=== PATIENT | female | born 1930 | race Caucasian/White ===

== ENCOUNTER 2016-08-16 05:38 | Observation (INO) | payer MEDICARE, BC ==
--- NOTE | 2016-08-16 05:44 | EDM.PDOC ---
ED HPI GENERAL MEDICAL PROBLEM - General Stated Complaint: CHEST PAIN Time Seen by Provider: 08/16/16 05:44 Source of Information: Reports: Patient - History of Present Illness INITIAL COMMENTS - FREE TEXT/NARRATIVE: HISTORY AND PHYSICAL: History of present illness: [] Patient presents with chest pain radiating to her back pain, she arrives by ambulance, pain is 8/10 nonradiating she states this is similar to a previous AL and it she had had. On EMS arrival they provided 4 baby aspirin and nitroglycerin pain now 0/10 after one dose No fever nausea vomiting chills sweats no shortness of breath or diaphoresis Review of systems: As per history of present illness and below otherwise all systems reviewed and negative. Past medical history: As per history of present illness and as reviewed below otherwise noncontributory. Surgical history: As per history of present illness and as reviewed below otherwise noncontributory. Social history: No reported history of drug or alcohol abuse. Family history: As per history of present illness and as reviewed below otherwise noncontributory. Physical exam: HEENT: Atraumatic, normocephalic, pupils reactive, negative for conjunctival pallor or scleral icterus, mucous membranes moist, throat clear, neck supple, nontender, trachea midline. Lungs: Clear to auscultation, breath sounds equal bilaterally, chest nontender. Heart: S1S2, regular, negative for clicks, rubs, or JVD. Abdomen: Soft, nondistended, nontender. Negative for masses or hepatosplenomegaly. Negative for costovertebral tenderness. Pelvis: Stable nontender. Genitourinary: Deferred. Rectal: Deferred. Extremities: Atraumatic, negative for cords or calf pain. Neurovascular unremarkable. Neuro: Awake, alert, oriented. Cranial nerves II through XII unremarkable. Cerebellum unremarkable. Motor and sensory unremarkable throughout. Exam nonfocal. Diagnostics: [] Lab as below EKG Chest one view Therapeutics: [] Aspirin 324 mg provided via EMS Nitroglycerin 0.4 sublingual provided by EMS Transfuse 2 units PRBCs Patient admitted to Dr. Francisco discussed in detail further orders pending his evaluation and treatment Impression: [] Atypical chest pain Anemia History of previous AL Definitive disposition and diagnosis as appropriate pending reevaluation and review of above. - Related Data Allergies Allergy/AdvReac Type Severity Reaction Status Date / Time No Known Allergies Allergy Verified 09/28/14 03:57 Home Meds: Home Meds . [Unable to Verify Home Med List] 09/28/14 [History] Past Medical History Other OB/BYN History: hysterectomy Social & Family History - Tobacco Use Smoking Status *Q: Current Every Day Smoker Years of Tobacco use: 60 - Recreational Drug Use Recreational Drug Use: No ED ROS GENERAL - Review of Systems Review Of Systems: ROS reveals no pertinent complaints other than HPI. ED EXAM, GENERAL - Physical Exam Exam: See Below Course - Vital Signs Last Recorded V/S: Last Vital Signs Temp 36.2 C 08/16/16 05:44 Pulse 81 08/16/16 05:44 Resp 21 H 08/16/16 05:44 BP 172/72 H 08/16/16 05:44 Pulse Ox 96 08/16/16 05:44 - Orders/Labs/Meds Orders: Active Orders 24 hr Category Date Time Status EKG Documentation Completion [RC] STAT Care 08/16/16 05:43 Active Chest 1V Frontal [CR] Stat Exams 08/16/16 05:43 Taken COMPREHENSIVE METABOLIC PN,CMP [CHEM] Stat Lab 08/16/16 05:53 Received TYPE AND SCREEN [BBK] Stat Lab 08/16/16 06:20 Ordered UA W/MICROSCOPIC [URIN] Stat Lab 08/16/16 05:43 Uncollected Transfuse PRBC [Transfuse Red Blood Cells] [COMM] Stat Oth 08/16/16 06:20 Ordered Labs: Laboratory Tests 08/16/16 08/16/16 08/16/16 Range/Units 05:53 05:53 05:53 WBC 6.83 (4.0-11.0) K/uL RBC 3.31 L (4.30-5.90) M/uL Hgb 7.5 L (12.0-16.0) g/dL Hct 25.8 L (36.0-46.0) % MCV 77.9 L (80.0-98.0) fL MCH 22.7 L (27.0-32.0) pg MCHC 29.1 L (31.0-37.0) g/dL RDW Std Deviation 46.9 (28.0-62.0) fl RDW Coeff of Nick 17 H (11.0-15.0) % Plt Count 241 (150-400) K/uL MPV 9.00 (7.40-12.00) fL Neut % (Auto) 67.5 (48.0-80.0) % Lymph % (Auto) 19.3 (16.0-40.0) % [place] % (Auto) 10.0 (0.0-15.0) % Eos % (Auto) 2.6 (0.0-7.0) % Baso % (Auto) 0.6 (0.0-1.5) % Neut # (Auto) 4.6 (1.4-5.7) K/uL Lymph # (Auto) 1.3 (0.6-2.4) K/uL [place] # (Auto) 0.7 (0.0-0.8) K/uL Eos # (Auto) 0.2 (0.0-0.7) K/uL Baso # (Auto) 0.0 (0.0-0.1) K/uL Nucleated RBC % 0.0 /100WBC Nucleated RBCs # 0 K/uL INR 1.12 H (0.86-1.11) Troponin I < 0.10 (0.0-0.29) NG/ML B-Natriuretic Peptide (<100) PG/ML 08/16/16 Range/Units 05:53 WBC (4.0-11.0) K/uL RBC (4.30-5.90) M/uL Hgb (12.0-16.0) g/dL Hct (36.0-46.0) % MCV (80.0-98.0) fL MCH (27.0-32.0) pg MCHC (31.0-37.0) g/dL RDW Std Deviation (28.0-62.0) fl RDW Coeff of Nick (11.0-15.0) % Plt Count (150-400) K/uL MPV (7.40-12.00) fL Neut % (Auto) (48.0-80.0) % Lymph % (Auto) (16.0-40.0) % [place] % (Auto) (0.0-15.0) % Eos % (Auto) (0.0-7.0) % Baso % (Auto) (0.0-1.5) % Neut # (Auto) (1.4-5.7) K/uL Lymph # (Auto) (0.6-2.4) K/uL [place] # (Auto) (0.0-0.8) K/uL Eos # (Auto) (0.0-0.7) K/uL Baso # (Auto) (0.0-0.1) K/uL Nucleated RBC % /100WBC Nucleated RBCs # K/uL INR (0.86-1.11) Troponin I (0.0-0.29) NG/ML B-Natriuretic Peptide 386 H (<100) PG/ML Departure - Departure Time of Disposition: 06:24 Disposition: Home, Self-Care 01 Condition: good Clinical Impression: Chest pain, Chest pain, atypical, Anemia - Discharge Information - My Orders Last 24 Hours: My Active Orders 08/16/16 05:43 EKG Documentation Completion [RC] STAT Chest 1V Frontal [CR] Stat UA W/MICROSCOPIC [URIN] Stat 08/16/16 05:53 COMPREHENSIVE METABOLIC PN,CMP [CHEM] Stat 08/16/16 06:20 TYPE AND SCREEN [BBK] Stat Transfuse PRBC [Transfuse Red Blood Cells] [COMM] Stat - Assessment/Plan Last 24 Hours: My Active Orders 08/16/16 05:43 EKG Documentation Completion [RC] STAT Chest 1V Frontal [CR] Stat UA W/MICROSCOPIC [URIN] Stat 08/16/16 05:53 COMPREHENSIVE METABOLIC PN,CMP [CHEM] Stat 08/16/16 06:20 TYPE AND SCREEN [BBK] Stat Transfuse PRBC [Transfuse Red Blood Cells] [COMM] Stat
[2016-08-16] MEDS ORDERED: Albuterol/Ipratropium 3.0-0.5 MG/3 ML Neb Soln INH PRN (13:45)
--- NOTE | 2016-08-16 13:58 | PCM.HP ---
H&P History of Present Illness - General Admit Problem/Dx: Admission Diagnosis/Problem Admission Diagnosis/Problem Atypical chest pain - History of Present Illness Initial Comments - Free Text/Narative: 85 yo female with pmh of atrial fibrillation, HTN, COPD and CAD. Patient reports a year ago having an AK with five stents placed. She presents to the ED with complaint of neck pain that radiates to arms bilaterally which was similar pain she had to her prior AK. She received on nitro with resolution of her pain. She had received 325mg of ASA by the EMS. Patient reported hemarroids with intermittent bright red blood per rectum - Related Data Allergies/Adverse Reactions: Allergies Allergy/AdvReac Type Severity Reaction Status Date / Time Sulfa (Sulfonamide Allergy Nausea and Verified 08/16/16 19:54 Antibiotics) Vomiting Home Medications: Home Meds Acetaminophen [Tylenol] 500 mg PO BID 08/16/16 [History] Apixaban [Eliquis] 2.5 mg PO BID 08/16/16 [History] Ascorbic Acid [Vitamin C] 1,000 mg PO DAILY 08/16/16 [History] Cholecalciferol (Vitamin D3) [Vitamin D3] 1,000 unit PO DAILY 08/16/16 [History] Clopidogrel [Plavix] 75 mg PO DAILY 08/16/16 [History] Diltiazem HCl [Dilt-XR] 120 mg PO DAILY 08/16/16 [History] Furosemide 40 mg PO DAILY 08/16/16 [History] Ipratropium/Albuterol Sulfate [Iprat-Albut 0.5-3(2.5) MG/3 ML] 3 ml IH Q6HR [History] Levothyroxine 25 mcg PO ACBREAKFAST 08/16/16 [History] Metoprolol Tartrate 50 mg PO BID 08/16/16 [History] Pantoprazole [ProTONIX] 40 mg PO DAILY 08/16/16 [History] Potassium Chloride 10 meq PO BID 08/16/16 [History] Sertraline [Zoloft] 100 mg PO DAILY 08/16/16 [History] atorvaSTATin [Lipitor] 20 mg PO DAILY 08/16/16 [History] Past Medical History HEENT History: Reports: Hard of Hearing Cardiovascular History: Reports: Hypertension, AK Other Cardiovascular History: Heart attack in 2015 Respiratory History: Reports: COPD Genitourinary History: Reports: Renal Disease [employer] History: Reports: Other OB/BYN History: hysterectomy Musculoskeletal History: Reports: Arthritis, Osteoporosis Endocrine/Metabolic History: Reports: Hypothyroidism, Other (See Below) Other Endocrine/Metabolic History: borderline DM II Hematologic History: Reports: Anemia - Infectious Disease History Infectious Disease History: Reports: C-Difficile, Chicken Pox, Measles, Mumps, Rubella - Past Surgical History Female Surgical History: Reports: Hysterectomy Musculoskeletal Surgical History: Reports: Hip Replacement Social & Family History - Family History Family Medical History: Noncontributory : Reports: Other (See Below) Other Family History: Interstitial cystitis OBGYN: Reports: Other (See Below) Other OBGYN Family History: cysts Musculoskeletal: Reports: Fibromyalgia Neurological: Reports: CVA Psychiatric: Reports: Depression - Tobacco Use Smoking Status *Q: Former Smoker Years of Tobacco use: 60 Used Tobacco, but Quit: Yes Month Tobacco Last Used: 2014 Second Hand Smoke Exposure: No - Caffeine Use Caffeine Use: Reports: Soda - Recreational Drug Use Recreational Drug Use: No H&P Review of Systems - Review of Systems: Review Of Systems: See Below General: Reports: No Symptoms HEENT: Reports: No Symptoms Pulmonary: Reports: No Symptoms Cardiovascular: Reports: No Symptoms Gastrointestinal: Reports: No Symptoms Genitourinary: Reports: No Symptoms Musculoskeletal: Reports: No Symptoms Skin: Reports: No Symptoms Psychiatric: Reports: No Symptoms Neurological: Reports: No Symptoms Hematologic/Lymphatic: Reports: No Symptoms Immunologic: Reports: No Symptoms Exam - Exam Exam: See Below - Vital Signs Vital Signs: Last Vital Signs Temp 36.8 C 08/16/16 12:53 Pulse 82 08/16/16 12:53 Resp 18 08/16/16 12:53 BP 170/78 H 08/16/16 12:53 Pulse Ox 94 L 08/16/16 12:53 Weight: 79.152 kg - Exam General: Alert, Oriented, 4 Neck: No: JVD Lungs: Clear to Auscultation, Normal Respiratory Effort Cardiovascular: Regular Rate, Regular Rhythm. No: Systolic Murmur, Diastolic Murmur Abdomen: Normal Bowel Sounds, Soft Extremities: Normal Inspection Skin: Warm, Dry, Intact - Patient Data Lab Results last 24 hrs: Laboratory Results - last 24 hr 08/16/16 Range/Units 11:09 Troponin I < 0.10 (0.0-0.29) NG/ML Result Diagrams: 08/17/16 05:13 08/17/16 05:13 EKG INTERPRETATION Rhythm: NSR Rate (beats/min): 78 ST-T: depressed (in lateral leads) *Q Meaningful Use (ADM) - VTE *Q VTE Criteria *Q: - Stroke *Q Stroke Criteria *Q: - AMI *Q AMI Criteria *Q: Problem List Initiated/Reviewed/Updated: Yes Orders Last 24hrs: Active Orders 24 hr Category Date Time Status Antiembolic Devices [RC] PER UNIT ROUTINE Care 08/16/16 13:50 Active EKG 12 Lead [EKG Documentation Completion] [RC] STAT Care 08/16/16 13:24 Active EKG Documentation Completion [RC] ROUTINE Care 08/16/16 13:22 Inactive Intake and Output [RC] QSHIFT Care 08/16/16 13:48 Active Oxygen Therapy [RC] PRN Care 08/16/16 13:48 Active Telemetry Monitoring [Cardiac Monitoring] [RC] . Care 08/16/16 06:25 Active DIRECTED Up ad Merly [RC] ASDIRECTED Care 08/16/16 13:48 Active VTE/DVT Education [RC] PER UNIT ROUTINE Care 08/16/16 13:48 Active Vital Signs [RC] Q4H Care 08/16/16 13:48 Active Cardiac [Heart Healthy Diet] [DIET] Diet 08/16/16 Lunch Active Regular Diet [DIET] Diet 08/16/16 Breakfast Active BASIC METABOLIC PANEL,BMP [CHEM] AM Lab 08/17/16 05:11 Ordered CBC WITH AUTO DIFF [HEME] AM Lab 08/17/16 05:11 Ordered TROPONIN I [CHEM] Q6H Lab 08/16/16 16:58 Ordered Albuterol/Ipratropium [DuoNeb 3.0-0.5 MG/3 ML] Med 08/16/16 13:45 Active 3 ml INH Q6HR PRN Apixaban [Eliquis] Med 08/16/16 21:00 Active 2.5 mg PO BID Clopidogrel [Plavix] Med 08/16/16 13:45 Ordered 75 mg PO DAILY Diltiazem HCl [Dilt-XR] Med 08/16/16 13:47 Ordered 120 mg PO DAILY Furosemide [Lasix] Med 08/17/16 09:00 Ordered 40 mg PO DAILY Levothyroxine Med 08/17/16 07:30 Ordered 25 mcg PO ACBREAKFAST Metoprolol Tartrate [Lopressor] Med 08/16/16 21:00 Ordered 50 mg PO BID Pantoprazole [ProTONIX] Med 08/16/16 13:45 Ordered 40 mg PO DAILY Sertraline [Zoloft] Med 08/17/16 09:00 Ordered 100 mg PO DAILY atorvaSTATin [Lipitor] Med 08/16/16 21:00 Ordered 20 mg PO BEDTIME Sequential Compression Device [OM.PC] Per Unit Routine Oth 08/16/16 13:49 Ordered Resuscitation Status Routine Resus Stat 08/16/16 13:48 Ordered Medication Orders Albuterol/Ipratropium (Duoneb 3.0-0.5 Mg/3 Ml) 3 ml INH Q6HR PRN PRN Reason: wheezing Apixaban (Eliquis) 2.5 mg PO BID JACY Atorvastatin Calcium (Lipitor) 20 mg PO BEDTIME JACY Clopidogrel Bisulfate (Plavix) 75 mg PO DAILY JACY Diltiazem HCl (Cardizem Cd) 120 mg PO DAILY JACY Furosemide (Lasix) 40 mg PO DAILY JACY Levothyroxine Sodium (Levothyroxine) 25 mcg PO ACBREAKFAST JACY Metoprolol Tartrate (Lopressor) 50 mg PO BIDMEALS JACY Pantoprazole Sodium (Protonix) 40 mg PO ACBREAKFAST JACY Sertraline HCl (Zoloft) 100 mg PO DAILY JACY Assessment/Plan Comment:: 85 yo female who presents with chest pain. We will place on ACS rule out protocol with serial cardiac enzymes. We will continue home medications of plavix, Eliquis, diltiazem, metoprolol, and atorvastatin. She is transfused pRBC due to anemia which is likely 2/2 to chronic GI bleeding.
[2016-08-16] MEDS: Diltiazem 120 MG Cap.CD PO SCH (14:08)
[2016-08-16] MEDS: Pantoprazole 40 MG Tab.CR PO SCH (14:09)
[2016-08-16] MEDS: Clopidogrel 75 MG Tab PO SCH (14:09)
[2016-08-16] MEDS: Metoprolol Tartrate 50 MG Tab PO SCH (16:17)
[2016-08-16] MEDS ORDERED: Magnesium Sulfate/Water 2 GM in Premix Bag 1 BAG IV ONE (18:15)
[2016-08-16] MEDS: Apixaban 2.5 MG Tab PO SCH (20:39)
[2016-08-16] MEDS ORDERED: atorvaSTATin 20 MG Tab PO SCH (21:00)
[2016-08-17] MEDS: Pantoprazole 40 MG Tab.CR PO SCH (06:34)
[2016-08-17] MEDS ORDERED: Levothyroxine 25 MCG Tab PO SCH (07:30)
[2016-08-17] MEDS: Metoprolol Tartrate 50 MG Tab PO SCH (08:19)
[2016-08-17] MEDS: Apixaban 2.5 MG Tab PO SCH (08:19)
[2016-08-17] MEDS: Clopidogrel 75 MG Tab PO SCH (08:19)
[2016-08-17] MEDS: Diltiazem 120 MG Cap.CD PO SCH (08:19)
[2016-08-17] MEDS ORDERED: Sertraline 100 MG Tab PO SCH (09:00)
[2016-08-17] MEDS ORDERED: Furosemide 40 MG Tab PO SCH (09:00)
[2016-08-17] MEDS ORDERED: Non-Formulary Medication 1 Each (Diltiazem Hcl [Dilt-Xr] 120 MG) PO SCH (09:00)
--- NOTE | 2016-08-17 12:21 | PCM.DCSUM1 ---
Discharge Summary - Hospital Course Free Text/Narrative:: 85 yo female with pmh of atrial fibrillation, HTN, COPD, CAD and NH was admitted due to neck pain that she described as similar to pain to pain she experienced during heart attack 1 year ago. On admission she was found to have a Hb level of 7.5 and Magnesium level of 1.2. Her EKG was normal, Troponin was negative and BNP was only mildly elevated. Her pain resolved shortly after arriving to the hospital. For anemia she was tranfused 2 units of blood. Magnesium was replaced. She was monitored on overnight telemetry which was mostly NSR with HR 60-70's. Troponin was checked [id number] x3 and all were negative. Vitals were stable except for elevated DBP ranging 95-100. Morning labs were wnl. Patient was requesting DC. She sees Dr. 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 She has some concerns regarding her medications however we suggested she follow-up with her PCP which her and her agreed to. Patient will be following up with Dr. Duncan within 1 week. No changes were made to her medications. Discharge Diagnosis: 1. Chest/Back Pain, resolved 2. Anemia, corrected 3. Weakness, likely secondary to anemia, improved 4. Hypertension - Discharge Data Discharge Date: 08/17/16 Discharge Disposition: Home, Self-Care 01 Condition: Good - Patient Instructions Diet: Heart Healthy Diet, Usual Diet as Tolerated Activity: As Tolerated, Rest and Relax Today Notify Provider of: Fever, Increased Pain, Swelling and Redness - Discharge Plan Home Medications: Home Meds Acetaminophen [Tylenol] 500 mg PO BID 08/16/16 [History] Apixaban [Eliquis] 2.5 mg PO BID 08/16/16 [History] Ascorbic Acid [Vitamin C] 1,000 mg PO DAILY 08/16/16 [History] Cholecalciferol (Vitamin D3) [Vitamin D3] 1,000 unit PO DAILY 08/16/16 [History] Clopidogrel [Plavix] 75 mg PO DAILY 08/16/16 [History] Diltiazem HCl [Dilt-XR] 120 mg PO DAILY 08/16/16 [History] Furosemide 40 mg PO DAILY 08/16/16 [History] Ipratropium/Albuterol Sulfate [Iprat-Albut 0.5-3(2.5) MG/3 ML] 3 ml IH Q6HR [History] Levothyroxine 25 mcg PO ACBREAKFAST 08/16/16 [History] Metoprolol Tartrate 50 mg PO BID 08/16/16 [History] Pantoprazole [ProTONIX] 40 mg PO DAILY 08/16/16 [History] Potassium Chloride 10 meq PO BID 08/16/16 [History] Sertraline [Zoloft] 100 mg PO DAILY 08/16/16 [History] atorvaSTATin [Lipitor] 20 mg PO DAILY 08/16/16 [History] Patient Handouts: Blood Transfusion, [id number], Nonspecific Chest Pain, Easy -to-Read Referrals: Shimon Chavez MD [Primary Care Provider] - (Please call Dr. Chavez's clinic on Thursday08/18/16 to schedule 1 week post hospitalization follow-up appointment.) Baldomero Sloan MD [Ordering Only Provider] - (Follow up with Dr. Sloan as needed through Dr. Chavez) - Patient Data Vitals - Most Recent: Last Vital Signs Temp 36.6 C 08/17/16 08:00 Pulse 74 08/17/16 08:19 Resp 22 H 08/17/16 08:00 BP 150/95 H 08/17/16 08:19 Pulse Ox 92 L 08/17/16 08:00 Weight - Most Recent: 79.152 kg I&O - Last 24 hours: Intake & Output 08/16/16 08/17/16 08/17/16 22:59 06:59 14:59 Intake Total 754 128 Output Total 278 420 Balance 476 -292 Lab Results - Last 24 hrs: Laboratory Results - last 24 hr 08/16/16 08/16/16 08/16/16 Range/Units 14:45 16:48 16:48 WBC (4.0-11.0) K/uL RBC (4.30-5.90) M/uL Hgb (12.0-16.0) g/dL Hct (36.0-46.0) % MCV (80.0-98.0) fL MCH (27.0-32.0) pg MCHC (31.0-37.0) g/dL RDW Std Deviation (28.0-62.0) fl RDW Coeff of Nick (11.0-15.0) % Plt Count (150-400) K/uL MPV (7.40-12.00) fL Neut % (Auto) (48.0-80.0) % Lymph % (Auto) (16.0-40.0) % [place] % (Auto) (0.0-15.0) % Eos % (Auto) (0.0-7.0) % Baso % (Auto) (0.0-1.5) % Neut # (Auto) (1.4-5.7) K/uL Lymph # (Auto) (0.6-2.4) K/uL [place]ts # (Auto) (0.0-0.8) K/uL Eos # (Auto) (0.0-0.7) K/uL Baso # (Auto) (0.0-0.1) K/uL Nucleated RBC % /100WBC Nucleated RBCs # K/uL Sodium (136-146) mmol/L Potassium (3.5-5.1) mmol/L Chloride (98-110) mmol/L Carbon Dioxide (21-31) mmol/L BUN (6.0-23.0) mg/dL Creatinine (0.6-1.5) mg/dL Est Cr Clr Drug Dosing mL/min Estimated GFR (MDRD) ml/min Glucose (60-110) mg/dL Calcium (8.8-10.8) mg/dL Magnesium 1.3 L (1.5-2.3) mEq/L Troponin I < 0.10 (0.0-0.29) NG/ML Urine Color YELLOW Urine Appearance CLEAR Urine pH 6.5 (5.0-8.0) Ur Specific [place] 1.015 (1.001-1.035) Urine Protein NEGATIVE (NEGATIVE) mg/dL Urine Glucose (UA) NEGATIVE (NEGATIVE) mg/dL Urine Ketones NEGATIVE (NEGATIVE) mg/dL Urine Occult Blood NEGATIVE (NEGATIVE) Urine Nitrite NEGATIVE (NEGATIVE) Urine Bilirubin NEGATIVE (NEGATIVE) Urine Urobilinogen 0.2 (<2.0) EU/dL Ur Leukocyte Esterase NEGATIVE (NEGATIVE) Urine RBC NONE SEEN (0-2/HPF) Urine WBC 0-1 (0-5/HPF) Ur Epithelial Cells FEW (NONE-FEW) Urine Bacteria FEW (NEGATIVE) 08/16/16 08/17/16 08/17/16 Range/Units 16:48 05:13 05:13 WBC 7.77 (4.0-11.0) K/uL RBC 4.19 L (4.30-5.90) M/uL Hgb 10.3 L 10.4 L (12.0-16.0) g/dL Hct 33.5 L 33.6 L (36.0-46.0) % MCV 80.2 (80.0-98.0) fL MCH 24.8 L (27.0-32.0) pg MCHC 31.0 (31.0-37.0) g/dL RDW Std Deviation 49.4 (28.0-62.0) fl RDW Coeff of Nick 17 H (11.0-15.0) % Plt Count 229 (150-400) K/uL MPV 9.60 (7.40-12.00) fL Neut % (Auto) 70.0 (48.0-80.0) % Lymph % (Auto) 15.3 L (16.0-40.0) % Butts % (Auto) 11.8 (0.0-15.0) % Eos % (Auto) 2.6 (0.0-7.0) % Baso % (Auto) 0.3 (0.0-1.5) % Neut # (Auto) 5.4 (1.4-5.7) K/uL Lymph # (Auto) 1.2 (0.6-2.4) K/uL Butts # (Auto) 0.9 H (0.0-0.8) K/uL Eos # (Auto) 0.2 (0.0-0.7) K/uL Baso # (Auto) 0.0 (0.0-0.1) K/uL Nucleated RBC % 0.0 /100WBC Nucleated RBCs # 0 K/uL Sodium 141 (136-146) mmol/L Potassium 4.0 (3.5-5.1) mmol/L Chloride 108 (98-110) mmol/L Carbon Dioxide 25 (21-31) mmol/L BUN 12 (6.0-23.0) mg/dL Creatinine 0.9 (0.6-1.5) mg/dL Est Cr Clr Drug Dosing 40.38 mL/min Estimated GFR (MDRD) 59.4 ml/min Glucose 118 H (60-110) mg/dL Calcium 8.8 (8.8-10.8) mg/dL Magnesium (1.5-2.3) mEq/L Troponin I (0.0-0.29) NG/ML Urine Color Urine Appearance Urine pH (5.0-8.0) Ur Specific [place] (1.001-1.035) Urine Protein (NEGATIVE) mg/dL Urine Glucose (UA) (NEGATIVE) mg/dL Urine Ketones (NEGATIVE) mg/dL Urine Occult Blood (NEGATIVE) Urine Nitrite (NEGATIVE) Urine Bilirubin (NEGATIVE) Urine Urobilinogen (<2.0) EU/dL Ur Leukocyte Esterase (NEGATIVE) Urine RBC (0-2/HPF) Urine WBC (0-5/HPF) Ur Epithelial Cells (NONE-FEW) Urine Bacteria (NEGATIVE) 08/17/16 Range/Units 05:13 WBC (4.0-11.0) K/uL RBC (4.30-5.90) M/uL Hgb (12.0-16.0) g/dL Hct (36.0-46.0) % MCV (80.0-98.0) fL MCH (27.0-32.0) pg MCHC (31.0-37.0) g/dL RDW Std Deviation (28.0-62.0) fl RDW Coeff of Nick (11.0-15.0) % Plt Count (150-400) K/uL MPV (7.40-12.00) fL Neut % (Auto) (48.0-80.0) % Lymph % (Auto) (16.0-40.0) % Butts % (Auto) (0.0-15.0) % Eos % (Auto) (0.0-7.0) % Baso % (Auto) (0.0-1.5) % Neut # (Auto) (1.4-5.7) K/uL Lymph # (Auto) (0.6-2.4) K/uL Butts # (Auto) (0.0-0.8) K/uL Eos # (Auto) (0.0-0.7) K/uL Baso # (Auto) (0.0-0.1) K/uL Nucleated RBC % /100WBC Nucleated RBCs # K/uL Sodium (136-146) mmol/L Potassium (3.5-5.1) mmol/L Chloride (98-110) mmol/L Carbon Dioxide (21-31) mmol/L BUN (6.0-23.0) mg/dL Creatinine (0.6-1.5) mg/dL Est Cr Clr Drug Dosing mL/min Estimated GFR (MDRD) ml/min Glucose (60-110) mg/dL Calcium (8.8-10.8) mg/dL Magnesium 2.0 (1.5-2.3) mEq/L Troponin I (0.0-0.29) NG/ML Urine Color Urine Appearance Urine pH (5.0-8.0) Ur Specific [place] (1.001-1.035) Urine Protein (NEGATIVE) mg/dL Urine Glucose (UA) (NEGATIVE) mg/dL Urine Ketones (NEGATIVE) mg/dL Urine Occult Blood (NEGATIVE) Urine Nitrite (NEGATIVE) Urine Bilirubin (NEGATIVE) Urine Urobilinogen (<2.0) EU/dL Ur Leukocyte Esterase (NEGATIVE) Urine RBC (0-2/HPF) Urine WBC (0-5/HPF) Ur Epithelial Cells (NONE-FEW) Urine Bacteria (NEGATIVE) Med Orders - Current: Current Medications Albuterol/Ipratropium (Duoneb 3.0-0.5 Mg/3 Ml) 3 ml INH Q6HR PRN PRN Reason: wheezing Apixaban (Eliquis) 2.5 mg PO BID [facility] Last Admin: 08/17/16 08:19 Dose: 2.5 mg Atorvastatin Calcium (Lipitor) 20 mg PO BEDTIME [facility] Last Admin: 08/16/16 20:39 Dose: 20 mg Clopidogrel Bisulfate (Plavix) 75 mg PO DAILY [facility] Last Admin: 08/17/16 08:19 Dose: 75 mg Diltiazem HCl (Cardizem Cd) 120 mg PO DAILY [facility] Last Admin: 08/17/16 08:19 Dose: 120 mg Furosemide (Lasix) 40 mg PO DAILY [facility] Last Admin: 08/17/16 08:19 Dose: 40 mg Levothyroxine Sodium (Levothyroxine) 25 mcg PO ACBREAKFAST [facility] Last Admin: 08/17/16 06:32 Dose: 25 mcg Metoprolol Tartrate (Lopressor) 50 mg PO BIDMEALS [facility] Last Admin: 08/17/16 08:19 Dose: 50 mg Pantoprazole Sodium (Protonix) 40 mg PO ACBREAKFAST [facility] Last Admin: 08/17/16 06:34 Dose: 40 mg Sertraline HCl (Zoloft) 100 mg PO DAILY [facility] Last Admin: 08/17/16 08:19 Dose: 100 mg Discontinued Medications Magnesium Sulfate 2 gm/ Premix 50 mls @ 50 mls/hr IV ONETIME ONE Stop: 08/16/16 19:14 Last Admin: 08/16/16 18:29 Dose: 50 mls/hr Non-Formulary Medication (Diltiazem Hcl [Dilt-Xr]) 120 mg PO DAILY [facility] *Q Meaningful Use (DIS) - VTE *Q VTE Criteria *Q: - Stroke *Q Stroke Criteria *Q: - AMI *Q AMI Criteria *Q:
[2016-08-17 12:23] VITALS: BP 107/62
--- NOTE | 2016-08-18 14:18 | CR ---
EXAM DATE: 08/16/16 PATIENT'S AGE: 85 Patient: MEHDI IQBAL Facility: [place], [place] Site . Site : [id number] Study: XRay Chest [id number]/20/2017 6:05:51 AM Ordering Physician: Doctor Gipson Final Report: INDICATION: Shortness of breath TECHNIQUE: Chest radiograph 1 view COMPARISON: 09/28/2014. FINDINGS: The study is moderately limited by body habitus and motion artifact. Cardiovascular and mediastinum: Moderate to severe cardiomegaly is present without interval change. The mediastinum is normal in appearance. There is a convex density in the right paraspinal region at the level of the diaphragm which may be due to a small hiatal hernia. Lungs and pleural spaces: Both lungs are unremarkable in appearance. No sign of pleural effusion seen. There is a linear density which parallels the right hemithorax chest wall. Bones and soft tissues: No significant findings. IMPRESSION: 1. Moderate to severe cardiomegaly is present without interval change. 2. There is a linear density which parallels the right hemithorax chest wall. The appearance is most likely due to a skin fold but left lateral decubitus view or an expiratory radiograph may be helpful to exclude a small pneumothorax. A copy of this report was faxed to the patient`s physician at the time of dictation. Dictated by Papito Vivar MD @ 08/16/2016 6:08:20 AM Dictated by: Papito Vivar MD @ 08/16/2016 06:08:27 (Electronic Signature) Report Signed by Proxy. JANETT
== END 2016-08-17 14:05 | disposition home or self-care (01) ==
LOC: MW.ED 05:38 → MW.MS 06:25
PROVIDERS: ADMIT Internal Medicine; ATTEND Internal Medicine
DX: R07.89 Other chest pain (principal); D64.9 Anemia, unspecified; I48.91 Unspecified atrial fibrillation; I25.10 Atherosclerotic heart disease of native coronary artery without angina pectoris; J44.9 Chronic obstructive pulmonary disease, unspecified; E83.42 Hypomagnesemia; I25.2 Old myocardial infarction; F17.210 Nicotine dependence, cigarettes, uncomplicated
CPT/HCPCS: 36415; 36430; 71010; 80048; 80053; 81001; 83735; 83880; 84484; 85014; 85018; 85025; 85610; 86850; 86900; 86901; 86920; 86921; 86922; 93005; 96365; 99285; A9270; G0378; J3475; P9016

== ENCOUNTER 2018-06-21 01:59 | Emergency (ER) | payer MEDICARE, BC ==
[2018-06-21] MEDS ORDERED: Ondansetron 4 MG/2 ML SDV ONE (02:01)
[2018-06-21] MEDS ORDERED: Ondansetron 4 MG/2 ML SDV IVPUSH ONE (02:12)
[2018-06-21] MEDS ORDERED: Sodium Chloride 0.9% 1,000 ML IV SCH ×4 (02:15→05:45)
[2018-06-21] MEDS ORDERED: Piperacillin/Tazobactam 3.375 GM in Sodium Chloride 0.9% 50 ML IV ONE (02:28)
--- NOTE | 2018-06-21 02:31 | EDM.PDOC ---
ED HPI GENERAL MEDICAL PROBLEM - General Chief Complaint: Abdominal Pain Stated Complaint: AMBULANCE Time Seen by Provider: 06/21/18 02:26 - History of Present Illness INITIAL COMMENTS - FREE TEXT/NARRATIVE: HISTORY AND PHYSICAL: History of present illness: Patient [id number] white female presents with concern of abdominal pain nausea vomiting fever 1 day patient's extremely poor historian due to advanced age there's been no reported chest pain or shortness of breath patient states she has been shaking. Review of systems: As per history of present illness and below otherwise all systems reviewed and negative. Past medical history: As per history of present illness and as reviewed below otherwise noncontributory. Surgical history: As per history of present illness and as reviewed below otherwise noncontributory. Social history: No reported history of drug or alcohol abuse. Family history: As per history of present illness and as reviewed below otherwise noncontributory. Physical exam: HEENT: Atraumatic, normocephalic, pupils reactive, negative for conjunctival pallor or scleral icterus, mucous membranes dry, throat clear, neck supple, nontender, trachea midline. Lungs: Coarse bilaterally, breath sounds equal bilaterally, chest nontender. Heart: S1S2, regular, negative for clicks, rubs, or JVD. Abdomen: Soft, distended with nonlocalized tenderness. Negative for masses or hepatosplenomegaly. Negative for costovertebral tenderness. Pelvis: Stable nontender. Genitourinary: Deferred. Rectal: Deferred. Extremities: Atraumatic, negative for cords or calf pain. Neurovascular unremarkable. Neuro: Awake, alert, follows commands and moves all extremities limited but grossly nonfocal exam Diagnostics: CBC CMP troponin PT/INR chest x-ray CT abdomen and pelvis EKG lipase blood culture 2 lactic acid UA Therapeutics: Saline 1 L bolus Zosyn 3.375 IV vancomycin 1 g IV Impression: #1 abdominal pain #2 vomiting #3 fever Definitive disposition and diagnosis as appropriate pending reevaluation and review of above. Abdomen Pain Score (Numeric/FACES): 6 - Related Data Allergies Allergy/AdvReac Type Severity Reaction Status Date / Time Sulfa (Sulfonamide Allergy Nausea and Verified 06/21/18 02:14 Antibiotics) Vomiting Home Meds: Home Meds Acetaminophen [Tylenol] 500 mg PO TID 08/16/16 [History] Apixaban [Eliquis] 2.5 mg PO BID 08/16/16 [History] Ascorbic Acid [Vitamin C] 1,000 mg PO DAILY 08/16/16 [History] Cholecalciferol (Vitamin D3) [Vitamin D3] 1,000 unit PO DAILY 08/16/16 [History] Diltiazem HCl [Dilt-XR] 120 mg PO DAILY 08/16/16 [History] Furosemide 40 mg PO DAILY 08/16/16 [History] Ipratropium/Albuterol Sulfate [Iprat-Albut 0.5-3(2.5) MG/3 ML] 3 ml IH Q6HR [History] Levothyroxine 25 mcg PO ACBREAKFAST 08/16/16 [History] Metoprolol Tartrate 50 mg PO BID 08/16/16 [History] Pantoprazole [ProTONIX] 40 mg PO DAILY 08/16/16 [History] Potassium Chloride 10 meq PO BID 08/16/16 [History] Sertraline [Zoloft] 100 mg PO DAILY 08/16/16 [History] atorvaSTATin [Lipitor] 20 mg PO DAILY 08/16/16 [History] Past Medical History HEENT History: Reports: Hard of Hearing Cardiovascular History: Reports: Afib, Hypertension, NE Other Cardiovascular History: Heart attack in 2014 Respiratory History: Reports: COPD Genitourinary History: Reports: Renal Disease NURSERY RN History: Reports: Other NURSERY RN History: hysterectomy Musculoskeletal History: Reports: Arthritis, Osteoporosis Psychiatric History: Reports: Anxiety Endocrine/Metabolic History: Reports: Hypothyroidism, Other (See Below) Other Endocrine/Metabolic History: borderline DM II Hematologic History: Reports: Anemia - Infectious Disease History Infectious Disease History: Reports: Chicken Pox, Measles, MRSA, Mumps - Past Surgical History HEENT Surgical History: Reports: Adenoidectomy, Tonsillectomy GI Surgical History: Reports: Appendectomy, Cholecystectomy, Colonoscopy Female Surgical History: Reports: Hysterectomy Musculoskeletal Surgical History: Reports: Hip Replacement Social & Family History - Family History Family Medical History: Noncontributory : Reports: Other (See Below) Other Family History: Interstitial cystitis OBGYN: Reports: Other (See Below) Other OBGYN Family History: cysts Musculoskeletal: Reports: Fibromyalgia Neurological: Reports: CVA Psychiatric: Reports: Depression - Tobacco Use Smoking Status *Q: Former Smoker Used Tobacco, but Quit: Yes Month/Year Tobacco Last Used: 2014 - Caffeine Use Caffeine Use: Reports: Soda - Recreational Drug Use Recreational Drug Use: No ED ROS GENERAL - Review of Systems Review Of Systems: ROS reveals no pertinent complaints other than HPI. ED EXAM, GENERAL - Physical Exam Exam: See Below (See dictation) Course - Vital Signs Last Recorded V/S: Last Vital Signs Temp 37.1 C 06/21/18 04:51 Pulse 107 H 06/21/18 04:51 Resp 21 H 06/21/18 04:51 BP 110/47 L 06/21/18 04:51 Pulse Ox 96 06/21/18 04:51 - Orders/Labs/Meds Orders: Active Orders 24 hr Category Date Time Status Cardiac Monitoring [RC] . DIRECTED Care 06/21/18 02:09 Active EKG Documentation Completion [RC] STAT Care 06/21/18 02:09 Active Oxygen Therapy [RC] ASDIRECTED Care 06/21/18 04:25 Active CULTURE BLOOD [BC] Stat Lab 06/21/18 02:12 Ordered CULTURE BLOOD [BC] Stat Lab 06/21/18 02:21 Received Sodium Chloride 0.9% [Normal Saline] 1,000 ml Med 06/21/18 02:15 Active IV ASDIRECTED Sodium Chloride 0.9% [Normal Saline] 1,000 ml Med 06/21/18 03:45 Active IV ASDIRECTED Blood Culture x2 Reflex Set [OM.PC] Stat Oth 06/21/18 02:11 Ordered Medication Orders Sodium Chloride (Normal Saline) 1,000 mls @ 999 mls/hr IV ASDIRECTED JACY Last Admin: 06/21/18 02:14 Dose: 999 mls/hr Sodium Chloride (Normal Saline) 1,000 mls @ 999 mls/hr IV ASDIRECTED JACY Labs: Laboratory Tests 06/21/18 06/21/18 06/21/18 Range/Units 02:28 02:28 02:28 WBC 21.11 H (4.0-11.0) K/uL RBC 3.59 L (4.30-5.90) M/uL Hgb 10.3 L (12.0-16.0) g/dL Hct 34.1 L (36.0-46.0) % MCV 95.0 (80.0-98.0) fL MCH 28.7 (27.0-32.0) pg MCHC 30.2 L (31.0-37.0) g/dL RDW Std Deviation 53.0 (28.0-62.0) fl RDW Coeff of Nick 15 (11.0-15.0) % Plt Count 347 (150-400) K/uL MPV 9.10 (7.40-12.00) fL Add Manual Diff YES Neutrophils % (Manual) 83 H (48.0-80.0) % Band Neutrophils % 5 % Lymphocytes % (Manual) 7 L (16.0-40.0) % Monocytes % (Manual) 4 (0.0-15.0) % Eosinophils % (Manual) 1 (0.0-7.0) % Nucleated RBC % 0.0 /100WBC Absolute Seg Neuts 17.5 H (1.4-5.7) Band Neutrophils # 1.1 Lymphocytes # (Manual) 1.5 (0.6-2.4) Monocytes # (Manual) 0.8 (0.0-0.8) Eosinophils # (Manual) 0.2 (0.0-0.7) Nucleated RBCs # 0 K/uL INR 1.50 Lactate (0.20-2.00) mmol/L Sodium 142 (136-145) mmol/L Potassium 4.1 (3.5-5.1) mmol/L Chloride 105 (98-107) mmol/L Carbon Dioxide 30.9 (21.0-32.0) mmol/L BUN 11 (7.0-18.0) mg/dL Creatinine 1.1 H (0.6-1.0) mg/dL Est Cr Clr Drug Dosing 30.53 mL/min Estimated GFR (MDRD) 46.9 ml/min Glucose 207 H (74-106) mg/dL Calcium 8.2 L (8.5-10.1) mg/dL Total Bilirubin 0.5 (0.2-1.0) mg/dL AST 20 (15-37) IU/L ALT 15 (14-63) IU/L Alkaline Phosphatase 69 (46-116) U/L Troponin I < 0.050 (0.000-0.056) ng/mL Total Protein 6.4 (6.4-8.2) g/dL Albumin 2.2 L (3.4-5.0) g/dL Globulin 4.2 H (2.6-4.0) g/dL Albumin/Globulin Ratio 0.5 L (0.9-1.6) Lipase 67 L (73-393) U/L Urine Color Urine Appearance Urine pH (5.0-8.0) Ur Specific [place] (1.001-1.035) Urine Protein (NEGATIVE) mg/dL Urine Glucose (UA) (NEGATIVE) mg/dL Urine Ketones (NEGATIVE) mg/dL Urine Occult Blood (NEGATIVE) Urine Nitrite (NEGATIVE) Urine Bilirubin (NEGATIVE) Urine Urobilinogen (<2.0) EU/dL Ur Leukocyte Esterase (NEGATIVE) Urine RBC (0-2/HPF) Urine WBC (0-5/HPF) Ur Epithelial Cells (NONE-FEW) Ur Renal Epithelial Cell Urine Bacteria (NEGATIVE) Fine Granular Casts (NEGATIVE) 06/21/18 06/21/18 Range/Units 02:28 02:40 WBC (4.0-11.0) K/uL RBC (4.30-5.90) M/uL Hgb (12.0-16.0) g/dL Hct (36.0-46.0) % MCV (80.0-98.0) fL MCH (27.0-32.0) pg MCHC (31.0-37.0) g/dL RDW Std Deviation (28.0-62.0) fl RDW Coeff of Nick (11.0-15.0) % Plt Count (150-400) K/uL MPV (7.40-12.00) fL Add Manual Diff Neutrophils % (Manual) (48.0-80.0) % Band Neutrophils % % Lymphocytes % (Manual) (16.0-40.0) % Monocytes % (Manual) (0.0-15.0) % Eosinophils % (Manual) (0.0-7.0) % Nucleated RBC % /100WBC Absolute Seg Neuts (1.4-5.7) Band Neutrophils # Lymphocytes # (Manual) (0.6-2.4) Monocytes # (Manual) (0.0-0.8) Eosinophils # (Manual) (0.0-0.7) Nucleated RBCs # K/uL INR Lactate 2.0 (0.20-2.00) mmol/L Sodium (136-145) mmol/L Potassium (3.5-5.1) mmol/L Chloride (98-107) mmol/L Carbon Dioxide (21.0-32.0) mmol/L BUN (7.0-18.0) mg/dL Creatinine (0.6-1.0) mg/dL Est Cr Clr Drug Dosing mL/min Estimated GFR (MDRD) ml/min Glucose (74-106) mg/dL Calcium (8.5-10.1) mg/dL Total Bilirubin (0.2-1.0) mg/dL AST (15-37) IU/L ALT (14-63) IU/L Alkaline Phosphatase (46-116) U/L Troponin I (0.000-0.056) ng/mL Total Protein (6.4-8.2) g/dL Albumin (3.4-5.0) g/dL Globulin (2.6-4.0) g/dL Albumin/Globulin Ratio (0.9-1.6) Lipase (73-393) U/L Urine Color DARK YELLOW Urine Appearance SLT CLOUDY Urine pH 5.5 (5.0-8.0) Ur Specific [place] 1.020 (1.001-1.035) Urine Protein NEGATIVE (NEGATIVE) mg/dL Urine Glucose (UA) NEGATIVE (NEGATIVE) mg/dL Urine Ketones NEGATIVE (NEGATIVE) mg/dL Urine Occult Blood LARGE H (NEGATIVE) Urine Nitrite NEGATIVE (NEGATIVE) Urine Bilirubin NEGATIVE (NEGATIVE) Urine Urobilinogen 2.0 H (<2.0) EU/dL Ur Leukocyte Esterase NEGATIVE (NEGATIVE) Urine RBC 15-20 (0-2/HPF) Urine WBC 0-3 (0-5/HPF) Ur Epithelial Cells OCCASIONAL (NONE-FEW) Ur Renal Epithelial Cell RARE Urine Bacteria 1+ H (NEGATIVE) Fine Granular Casts 0-1 (NEGATIVE) Meds: Medications Generic Name Dose Route Start Last Admin Trade Name Freq PRN Reason Stop Dose Admin Sodium Chloride 1,000 mls @ 999 mls/hr 06/21/18 02:15 06/21/18 02:14 Normal Saline IV 999 mls/hr ASDIRECTED JACY Administration Sodium Chloride 1,000 mls @ 999 mls/hr 06/21/18 03:45 Normal Saline IV ASDIRECTED JACY Discontinued Medications Generic Name Dose Route Start Last Admin Trade Name Freq PRN Reason Stop Dose Admin Piperacillin Sod/Tazobactam 50 mls @ 100 mls/hr 06/21/18 02:28 06/21/18 02:50 Sod 3.375 gm/ Sodium Chloride IV 06/21/18 02:57 100 mls/hr ONETIME ONE Administration Vancomycin HCl 1 gm/ Sodium 250 mls @ 166 mls/hr 06/21/18 02:28 06/21/18 03: 34 Chloride IV 06/21/18 03:58 166 mls/hr ONETIME ONE Administration Levofloxacin/Dextrose 750 mg/ 150 mls @ 100 mls/hr 06/21/18 03:13 06/21/18 03 :41 Premix IV 06/21/18 04:42 100 mls/hr ONETIME ONE Administration Ondansetron HCl Confirm 06/21/18 02:01 06/21/18 02:15 Zofran Administered 06/21/18 02:02 Not Given Dose 4 mg .ROUTE .STK-MED ONE Ondansetron HCl 4 mg 06/21/18 02:12 06/21/18 02:15 Zofran IVPUSH 06/21/18 02:13 4 mg ONETIME ONE Administration Departure - Departure Time of Disposition: 05:00 Disposition: DC/Tfer to Acute Hospital 02 Condition: Serious Clinical Impression: Abdominal pain - Discharge Information Referrals: PCP,None [Primary Care Provider] - Forms: ED Department Discharge - My Orders Last 24 Hours: My Active Orders 06/21/18 02:09 Cardiac Monitoring [RC] . DIRECTED EKG Documentation Completion [RC] STAT 06/21/18 02:11 Blood Culture x2 Reflex Set [OM.PC] Stat 06/21/18 02:12 CULTURE BLOOD [BC] Stat 06/21/18 02:15 Sodium Chloride 0.9% [Normal Saline] 1,000 ml IV ASDIRECTED 06/21/18 02:21 CULTURE BLOOD [BC] Stat 06/21/18 03:45 Sodium Chloride 0.9% [Normal Saline] 1,000 ml IV ASDIRECTED 06/21/18 04:25 Oxygen Therapy [RC] ASDIRECTED - Assessment/Plan Last 24 Hours: My Active Orders 06/21/18 02:09 Cardiac Monitoring [RC] . DIRECTED EKG Documentation Completion [RC] STAT 06/21/18 02:11 Blood Culture x2 Reflex Set [OM.PC] Stat 06/21/18 02:12 CULTURE BLOOD [BC] Stat 06/21/18 02:15 Sodium Chloride 0.9% [Normal Saline] 1,000 ml IV ASDIRECTED 06/21/18 02:21 CULTURE BLOOD [BC] Stat 06/21/18 03:45 Sodium Chloride 0.9% [Normal Saline] 1,000 ml IV ASDIRECTED 06/21/18 04:25 Oxygen Therapy [RC] ASDIRECTED
--- NOTE | 2018-06-21 03:07 | CT ---
INDICATION: Nausea, abdominal pain TECHNIQUE: CT Abdomen and pelvis without i.v. contrast. Coronal and sagittal reformats were obtained. COMPARISON: 09/25/2016 FINDINGS: Moderate image quality degradation noted due to beam hardening artifacts from scanning with the arms by the patient`s sides. Lower chest: Unremarkable. Liver: Unremarkable. Spleen: Unremarkable. Pancreas: Unremarkable. Gallbladder: Previous cholecystectomy noted without significant intra- or extrahepatic biliary ductal dilatation seen. Kidney: Multiple small stones are present within the right kidney measuring up to 5 mm. Adrenal: Unremarkable. Bowel: Moderate, stable sliding type gastric hiatal hernia (type IV) is present. Moderate wall thickening on the midsigmoid colon is present with adjacent inflammatory changes seen. Along the superior margin of the sigmoid, there is a gas collection measuring 2.8 cm which may be within the wall or extraluminal. The appendix is not identified. 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 Lymph: Unremarkable. Peritoneum: Unremarkable. No pneumoperitoneum is seen. No significant ascites is noted. Pelvis: Evaluation of the pelvic soft tissues and osseous structures are limited by beam hardening artifacts from the right hip prosthesis. Soft tissue: Unremarkable. Bone: Severe osteoarthritis of the left hip is noted. IMPRESSIONS: 1. Moderate wall thickening on the midsigmoid colon is present with adjacent inflammatory changes seen. Along the superior margin of the sigmoid, there is a gas collection measuring 2.8 cm which may be within the wall or extraluminal. Findings are suspicious for contained, perforated diverticulitis. 2. Fusiform aneurysmal dilatation of the infrarenal aorta is present measuring 3.5 cm without significant interval change. Dictated by Papito Vivar MD @ 06/21/2018 3:05:25 AM Please note that all CT scans at this facility use dose modulation, iterative reconstruction, and/or weight-based dosing when appropriate to reduce radiation dose to as low as reasonably achievable. Dictated by: Papito Vivar MD @ 06/21/2018 03:05:28 (Electronically Signed)
[2018-06-21 03:13] LABS: CHLORIDE,CL 105 mmol/L (98-107); SODIUM,NA 142 mmol/L (136-145)
[2018-06-21] MEDS ORDERED: Levofloxacin/Dextrose 5%-Water 750 MG in Premix Bag 1 BAG IV ONE (03:13)
--- NOTE | 2018-06-21 03:30 | CR ---
INDICATION: Nausea, chest pain TECHNIQUE: Chest radiograph 1 view COMPARISON: 08/16/2016 FINDINGS: Moderate degradation of image quality noted due to body habitus. Mediastinum: Small to moderate sliding type gastric hiatal hernia (type IV) is present. Severe stable cardiomegaly is noted. Lung: Both lungs are unremarkable in appearance. The apices are obscured by the patient`s chin. No sign of pleural effusion seen. No pneumothorax is identified. Musculoskeletal: Moderate diffuse osteopenia is noted. IMPRESSION: 1. Severe stable cardiomegaly is noted. Dictated by Papito Vivar MD @ 06/21/2018 3:06:20 AM Dictated by: Papito Vivar MD @ 06/21/2018 03:06:26 (Electronically Signed)
[2018-06-21 06:32] VITALS: BP 118/55
--- NOTE | 2018-06-21 11:40 | CONS ---
DATE OF CONSULTATION: DATE OF : 1930 PRIMARY CARE PHYSICIAN: None PCP This is a consult from Dr. Quesada. CONCERNING QUESTION: Distended abdomen. HISTORY OF PRESENT ILLNESS: The patient is an 87-year-old lady coming from home complaining about shaking and abdominal pain. The patient remarked this has been going on for about a week and the emergency room workup included blood work and CAT scan and blood work shows a white count of 20, and CAT scan shows sigmoid diverticulitis with a 2.8 cm either extraluminal air or intraluminal air. Surgery was then consulted. The patient currently is anorexic, does not want to eat, complaining about abdominal pain as a level of 5 on the pain scale 1-10. ALLERGIES: Please refer to nursing for details. MEDICATIONS: Please refer to nursing for details. PAST SURGICAL HISTORY: Normal vaginal delivery x4 and open cholecystectomy. PAST MEDICAL HISTORY: Atrial fibrillation; allergic rhinitis; anemia; anxiety; arthritis; COPD; female bladder prolapse; hypertension; hypothyroid; internal hemorrhoids; osteoporosis; psoriasis; CA in 2016; and cardiac stent placement, 5 stents. HOME MEDICATIONS: Currently include Lasix, Eliquis, Plavix, diltiazem, and albuterol inhaler. PHYSICAL EXAMINATION: GENERAL: A very pleasant lady, alert, awake, and cooperating with examination. VITAL SIGNS: On examination, heart rate 107, blood pressure is 110/47. HEENT: Normocephalic and atraumatic. Sclerae anicteric. LUNGS: Clear to auscultation. HEART: Irregular. ABDOMEN: Distended but soft. Large surgical scar on the right upper quadrant. Tenderness on bilateral lower quadrant. LABORATORY DATA: Upon consultation, BUN is 11, creatinine is 1.2, H and H are 10 and 34, and white count is 21. IMAGING: CAT scan shows moderate wall thickening on the mid sigmoid colon and with a gas collection measuring 2.8 cm may be within the wall or extraluminal. IMPRESSION: Diverticulitis likely microperforation or contained perforation as CAT scan does not show pneumoperitoneum and the patient is not having peritoneal sign upon examination. With the patient's COPD, hypertension, coronary artery disease, and cardiac stent placement on Plavix and Eliquis, the patient await facility. The patient would benefit from transfer to higher level care in the situation if conservative management does not work and require surgical intervention, the patient would not be a surgical candidate in our facility. Plan has been discussed with ER provider, Dr. Quesada, and discussed with the family member and all are in agreement to transfer to tertiary care center. Please transfer the patient with a CAT scan done here. As always, thank you for the kind referral. BINA / JIM /[id number] JANETT
== END 2018-06-21 08:35 ==
LOC: MW.ED 01:59
DX: R10.9 Unspecified abdominal pain (principal); I10 Essential (primary) hypertension; I48.91 Unspecified atrial fibrillation; I25.2 Old myocardial infarction; E03.9 Hypothyroidism, unspecified; F41.9 Anxiety disorder, unspecified; Z86.2 Personal history of diseases of the blood and blood-forming organs and certain disorders involving the immune mechanism; Z88.2 Allergy status to sulfonamides; Z79.899 Other long term (current) drug therapy; Z98.890 Other specified postprocedural states; Z90.49 Acquired absence of other specified parts of digestive tract; Z90.710 Acquired absence of both cervix and uterus; Z87.891 Personal history of nicotine dependence
CPT/HCPCS: 36415; 71045; 74176; 80053; 81001; 83605; 83690; 84484; 85025; 85610; 87040; 87804; 93005; 96361; 96365; 96375; 99285; J1956; J2405; J2543; J3370; J7040; J7050

== ENCOUNTER 2019-05-25 13:15 | Inpatient (IN) | payer MEDICARE, BC ==
[2019-05-25] MEDS ORDERED: Albuterol/Ipratropium 3.0-0.5 MG/3 ML Neb Soln NEB ONE (14:41)
[2019-05-25 15:24] LABS: BLOOD UREA NITROGEN,BUN 35 mg/dL (7.0-18.0); CARBON DIOXIDE,CO2 27.2 mmol/L (21.0-32.0); CHLORIDE,CL 107 mmol/L (98-107); GLUCOSE RANDOM 131 mg/dL (74-106); POTASSIUM,K 5.6 mmol/L (3.5-5.1); SODIUM,NA 144 mmol/L (136-145)
[2019-05-25] MEDS ORDERED: Sodium Chloride 0.9% 500 ML IV SCH (16:15)
--- NOTE | 2019-05-25 17:16 | CR ---
Chest: Portable view of the chest was obtained. Comparison: Prior chest x-ray of 06/21/18. Heart is enlarged. Tortuous thoracic aorta is seen with atherosclerotic calcification. Lungs are clear with no acute parenchymal change. Bony structures are grossly intact. Impression: 1. Cardiomegaly and aortic findings. 2. Nothing acute is otherwise seen on portable chest x-ray. Diagnostic code #2 This report was dictated in [place] Standard Time
--- NOTE | 2019-05-25 18:54 | CT ---
CT abdomen and pelvis Technique: Multiple axial sections were obtained from above the dome of the diaphragm inferiorly through the pubic symphysis. Intravenous and oral contrast not utilized. Comparison: Previous CT abdomen and pelvis exam of 06/21/18. Findings: Moderately large hiatal hernia is again noted. Small right-sided pleural effusion is seen. Slight atelectasis is noted within the left lung base. Noncontrast appearance of the liver shows no discrete abnormality. Spleen size is normal. Adrenal glands show no discrete nodule. Kidneys show nonobstructing renal calculi as well as lower pole cysts on the right side. Aorta shows distal aneurysmal dilatation at about 3.6 cm which is felt to be fairly stable from previous exam. Diffuse atherosclerotic calcification is seen within the aorta and iliac vessels. No retroperitoneal adenopathy or mesenteric abnormalities are seen. No pelvic mass or adenopathy is seen. Appendix not visualized with certainty. No free fluid or inflammatory change is seen. Fat-containing umbilical hernia is noted. Artifact within the pelvis due to hip prosthesis on the right side. Fairly severe degenerative change is noted within the left hip. Diffuse degenerative change is noted throughout the spine. Impression:. 1. Small right-sided pleural effusion which is an interval change from prior CT exam. 2. Stable distal abdominal aortic aneurysm measuring about 3.6 cm in AP dimension. 3. Other findings which are stable. Nothing acute is appreciated. Diagnostic code #3 This report was dictated in [place] Standard Time
--- NOTE | 2019-05-25 20:39 | EDM.PDOC ---
ED HPI GENERAL MEDICAL PROBLEM - General Chief Complaint: Abdominal Pain Stated Complaint: LOOSE STOOL Time Seen by Provider: 05/25/19 15:52 Source of Information: Reports: Patient, Family (daughter) History Limitations: Reports: No Limitations - History of Present Illness INITIAL COMMENTS - FREE TEXT/NARRATIVE: This 88 year old female is admitted to the ED with a chief complaint of abdominal pain associated with mild diarrhea. No nausea or vomiting. No urinary symptoms. The daughter states that she is weak. Onset: Gradual (for a few days) Location: Reports: Abdomen Severity: Mild (to moderate) Abdomen Pain Score (Numeric/FACES): 3 - Related Data Allergies Allergy/AdvReac Type Severity Reaction Status Date / Time Sulfa (Sulfonamide Allergy Nausea and Verified 05/25/19 14:05 Antibiotics) Vomiting Home Meds: Home Meds Acetaminophen [Tylenol] 500 mg PO TID 08/16/16 [History] Apixaban [Eliquis] 2.5 mg PO BID 08/16/16 [History] Ascorbic Acid [Vitamin C] 1,000 mg PO DAILY 08/16/16 [History] Cholecalciferol (Vitamin D3) [Vitamin D3] 1,000 unit PO DAILY 08/16/16 [History] Diltiazem HCl [Dilt-XR] 120 mg PO DAILY 08/16/16 [History] Furosemide 40 mg PO DAILY 08/16/16 [History] Ipratropium/Albuterol Sulfate [Iprat-Albut 0.5-3(2.5) MG/3 ML] 3 ml IH Q6HR [History] Levothyroxine 25 mcg PO ACBREAKFAST 08/16/16 [History] Metoprolol Tartrate 50 mg PO BID 08/16/16 [History] Pantoprazole [ProTONIX] 40 mg PO DAILY 08/16/16 [History] Potassium Chloride 10 meq PO BID 08/16/16 [History] Sertraline [Zoloft] 100 mg PO DAILY 08/16/16 [History] atorvaSTATin [Lipitor] 20 mg PO DAILY 08/16/16 [History] Past Medical History HEENT History: Reports: Hard of Hearing Cardiovascular History: Reports: Afib, Hypertension, [place] Other Cardiovascular History: Heart attack in 2014 Respiratory History: Reports: COPD Gastrointestinal History: Reports: Other (See Below) Other Gastrointestinal History: abdominal hernia Genitourinary History: Reports: Renal Disease [employer]I [employer] OPERATOR History: Reports: Other [employer]I [employer] OPERATOR History: hysterectomy Musculoskeletal History: Reports: Arthritis, Osteoporosis Neurological History: Reports: None Psychiatric History: Reports: Anxiety Endocrine/Metabolic History: Reports: Hypothyroidism, Other (See Below) Other Endocrine/Metabolic History: borderline DM II Hematologic History: Reports: Anemia Immunologic History: Reports: None Oncologic (Cancer) History: Reports: None Dermatologic History: Reports: None - Infectious Disease History Infectious Disease History: Reports: Measles - Past Surgical History HEENT Surgical History: Reports: Adenoidectomy, Tonsillectomy Cardiovascular Surgical History: Reports: None Respiratory Surgical History: Reports: None GI Surgical History: Reports: Appendectomy, Cholecystectomy, Colonoscopy Female Surgical History: Reports: Hysterectomy Endocrine Surgical History: Reports: None Neurological Surgical History: Reports: None Musculoskeletal Surgical History: Reports: Hip Replacement Oncologic Surgical History: Reports: None Dermatological Surgical History: Reports: None Social & Family History - Family History Family Medical History: Noncontributory : Reports: Other (See Below) Other Family History: Interstitial cystitis OBGYN: Reports: Other (See Below) Other OBGYN Family History: cysts Musculoskeletal: Reports: Fibromyalgia Neurological: Reports: CVA Psychiatric: Reports: Depression - Tobacco Use Smoking Status *Q: Former Smoker Used Tobacco, but Quit: Yes Month/Year Tobacco Last Used: 2014 - Caffeine Use Caffeine Use: Reports: None - Recreational Drug Use Recreational Drug Use: No ED ROS GENERAL - Review of Systems Review Of Systems: See Below Constitutional: Reports: Weakness, Decreased Appetite HEENT: Reports: No Symptoms Respiratory: Reports: No Symptoms Cardiovascular: Reports: No Symptoms Endocrine: Reports: No Symptoms GI/Abdominal: Reports: Abdominal Pain. Denies: Hematemesis, Nausea, Vomiting : Reports: No Symptoms Musculoskeletal: Reports: No Symptoms Skin: Reports: No Symptoms Neurological: Reports: Other (mild dementia) ED EXAM, GI/ABD - Physical Exam Exam: See Below Exam Limited By: No Limitations General Appearance: Alert, Mild Distress (coming of abdominal pain) Eyes: Bilateral: Normal Appearance, EOMI Ears: Normal External Exam, Normal Canal, Hearing Grossly Normal, Normal TMs Nose: Normal Inspection, Normal Mucosa, No Blood Throat/Mouth: Normal Inspection, Normal Lips, Normal Teeth, Normal Gums, Normal Oropharynx, Normal Voice, No Airway Compromise Head: Atraumatic, Normocephalic Neck: Normal Inspection, Supple, Non-Tender, Full Range of Motion Respiratory/Chest: No Respiratory Distress, Other (a few rales and rhonchi in both bases.) Cardiovascular: Normal Peripheral Pulses, Regular Rate, Rhythm, No JVD, Systolic Murmur GI/Abdominal Exam: Normal Bowel Sounds, Soft, No Organomegaly, No Distention, No Abnormal Bruit, No Mass, Other (slightly tender in the mid abdomen.) (Female) Exam: Deferred Rectal (Female) Exam: Normal Rectal Tone, Heme + Stool Back Exam: Normal Inspection Extremities: Normal Inspection, Non-Tender, No Pedal Edema, Normal Capillary Refill Neurological: Alert, CN II-XII Intact, Normal Reflexes Psychiatric: Normal Affect, Normal Mood (for age.) Skin Exam: Warm, Dry, Intact, Pallor (slight) Lymphatic: No Adenopathy Course - Vital Signs Text/Narrative:: I discussed this case with Dr. Estes at 8:30PM. She will be admitted with the diagnosis of GI bleed and dehydration. The patient and the daughter agrees with the admission plan. Last Recorded V/S: Last Vital Signs Temp 97.1 F 05/25/19 19:05 Pulse 86 05/25/19 19:05 Resp 18 05/25/19 19:05 BP 127/36 L 05/25/19 19:05 Pulse Ox 93 L 05/25/19 19:05 - Orders/Labs/Meds Orders: Active Orders 24 hr Category Date Time Status EKG Documentation Completion [RC] STAT Care 05/25/19 14:26 Active Fecal Occult Blood Collection [RC] ASDIRECTED Care 05/25/19 20:29 Active RT Aerosol Therapy [RC] ASDIRECTED Care 05/25/19 14:41 Active CULTURE BLOOD [BC] Stat Lab 05/25/19 16:33 Received CULTURE BLOOD [BC] Stat Lab 05/25/19 16:46 Received Sodium Chloride 0.9% @ 125 MLS/HR (1,000ml) Med 05/25/19 20:15 Ordered Sodium Chloride 0.9% [Normal Saline] 1,000 ml IV ASDIRECTED Sodium Chloride 0.9% [Normal Saline] 500 ml Med 05/25/19 16:15 Active IV .BOLUS Blood Culture x2 Reflex Set [OM.PC] Stat Oth 05/25/19 16:10 Ordered Medication Orders Sodium Chloride (Normal Saline) 500 mls @ 999 mls/hr IV .BOLUS JACY Last Admin: 05/25/19 16:55 Dose: 999 mls/hr Sodium Chloride (Normal Saline) 1,000 mls @ 125 mls/hr IV ASDIRECTED [facility] Labs: Laboratory Tests 05/25/19 05/25/19 05/25/19 Range/Units 14:44 14:44 14:44 WBC 18.43 H (4.0-11.0) K/uL RBC 4.24 L (4.30-5.90) M/uL Hgb 8.9 L (12.0-16.0) g/dL Hct 34.8 L (36.0-46.0) % MCV 82.1 (80.0-98.0) fL MCH 21.0 L (27.0-32.0) pg MCHC 25.6 L (31.0-37.0) g/dL RDW Std Deviation 57.7 (28.0-62.0) fl RDW Coeff of Nick 19 H (11.0-15.0) % Plt Count 334 (150-400) K/uL MPV 9.40 (7.40-12.00) fL Neut % (Auto) 86.2 H (48.0-80.0) % Lymph % (Auto) 5.4 L (16.0-40.0) % [place] % (Auto) 8.1 (0.0-15.0) % Eos % (Auto) 0.1 (0.0-7.0) % Baso % (Auto) 0.2 (0.0-1.5) % Neut # (Auto) 15.9 H (1.4-5.7) K/uL Lymph # (Auto) 1.0 (0.6-2.4) K/uL [place] # (Auto) 1.5 H (0.0-0.8) K/uL Eos # (Auto) 0.0 (0.0-0.7) K/uL Baso # (Auto) 0.0 (0.0-0.1) K/uL Nucleated RBC % 0.7 /100WBC Nucleated RBCs # 0 K/uL ABG pH (7.35-7.45) ABG pCO2 (35-45) mmHG ABG pO2 (75-100) mmHG ABG HCO3 (22-26) mEq/L ABG Total CO2 ABG Base Excess (-2.0-2.0) Lactate 2.2 H* (0.20-2.00) mmol/L Sodium 144 (136-145) mmol/L Potassium 5.6 H (3.5-5.1) mmol/L Chloride 107 (98-107) mmol/L Carbon Dioxide 27.2 (21.0-32.0) mmol/L BUN 35 H (7.0-18.0) mg/dL Creatinine 2.1 H (0.6-1.0) mg/dL Est Cr Clr Drug Dosing 16.34 mL/min Estimated GFR (MDRD) 22.2 ml/min Glucose 131 H (74-106) mg/dL Calcium 8.7 (8.5-10.1) mg/dL Magnesium 1.8 (1.8-2.4) mg/dL Total Bilirubin 0.6 (0.2-1.0) mg/dL AST 81 H (15-37) IU/L ALT 62 (14-63) IU/L Alkaline Phosphatase 86 (46-116) U/L Troponin I < 0.050 (0.000-0.056) ng/mL Total Protein 7.2 (6.4-8.2) g/dL Albumin 3.0 L (3.4-5.0) g/dL Globulin 4.2 H (2.6-4.0) g/dL Albumin/Globulin Ratio 0.7 L (0.9-1.6) Urine Color Urine Appearance Urine pH (5.0-8.0) Ur Specific [place] (1.001-1.035) Urine Protein (NEGATIVE) mg/dL Urine Glucose (UA) (NEGATIVE) mg/dL Urine Ketones (NEGATIVE) mg/dL Urine Occult Blood (NEGATIVE) Urine Nitrite (NEGATIVE) Urine Bilirubin (NEGATIVE) Urine Urobilinogen (<2.0) EU/dL Ur Leukocyte Esterase (NEGATIVE) Ketones (NEG) 05/25/19 05/25/19 05/25/19 Range/Units 14:44 16:24 17:30 WBC (4.0-11.0) K/uL RBC (4.30-5.90) M/uL Hgb (12.0-16.0) g/dL Hct (36.0-46.0) % MCV (80.0-98.0) fL MCH (27.0-32.0) pg MCHC (31.0-37.0) g/dL RDW Std Deviation (28.0-62.0) fl RDW Coeff of Nick (11.0-15.0) % Plt Count (150-400) K/uL MPV (7.40-12.00) fL Neut % (Auto) (48.0-80.0) % Lymph % (Auto) (16.0-40.0) % [place] % (Auto) (0.0-15.0) % Eos % (Auto) (0.0-7.0) % Baso % (Auto) (0.0-1.5) % Neut # (Auto) (1.4-5.7) K/uL Lymph # (Auto) (0.6-2.4) K/uL [place] # (Auto) (0.0-0.8) K/uL Eos # (Auto) (0.0-0.7) K/uL Baso # (Auto) (0.0-0.1) K/uL Nucleated RBC % /100WBC Nucleated RBCs # K/uL ABG pH 7.361 (7.35-7.45) ABG pCO2 49 H (35-45) mmHG ABG pO2 75 (75-100) mmHG ABG HCO3 28 H (22-26) mEq/L ABG Total CO2 26.5 ABG Base Excess 1.9 (-2.0-2.0) Lactate (0.20-2.00) mmol/L Sodium (136-145) mmol/L Potassium (3.5-5.1) mmol/L Chloride (98-107) mmol/L Carbon Dioxide (21.0-32.0) mmol/L BUN (7.0-18.0) mg/dL Creatinine (0.6-1.0) mg/dL Est Cr Clr Drug Dosing mL/min Estimated GFR (MDRD) ml/min Glucose (74-106) mg/dL Calcium (8.5-10.1) mg/dL Magnesium (1.8-2.4) mg/dL Total Bilirubin (0.2-1.0) mg/dL AST (15-37) IU/L ALT (14-63) IU/L Alkaline Phosphatase (46-116) U/L Troponin I (0.000-0.056) ng/mL Total Protein (6.4-8.2) g/dL Albumin (3.4-5.0) g/dL Globulin (2.6-4.0) g/dL Albumin/Globulin Ratio (0.9-1.6) Urine Color YELLOW Urine Appearance CLEAR Urine pH 5.5 (5.0-8.0) Ur Specific [place] 1.025 (1.001-1.035) Urine Protein NEGATIVE (NEGATIVE) mg/dL Urine Glucose (UA) NEGATIVE (NEGATIVE) mg/dL Urine Ketones NEGATIVE (NEGATIVE) mg/dL Urine Occult Blood NEGATIVE (NEGATIVE) Urine Nitrite NEGATIVE (NEGATIVE) Urine Bilirubin NEGATIVE (NEGATIVE) Urine Urobilinogen 0.2 (<2.0) EU/dL Ur Leukocyte Esterase NEGATIVE (NEGATIVE) Ketones NEGATIVE (NEG) 05/25/19 Range/Units 19:00 WBC (4.0-11.0) K/uL RBC (4.30-5.90) M/uL Hgb (12.0-16.0) g/dL Hct (36.0-46.0) % MCV (80.0-98.0) fL MCH (27.0-32.0) pg MCHC (31.0-37.0) g/dL RDW Std Deviation (28.0-62.0) fl RDW Coeff of Nick (11.0-15.0) % Plt Count (150-400) K/uL MPV (7.40-12.00) fL Neut % (Auto) (48.0-80.0) % Lymph % (Auto) (16.0-40.0) % [place] % (Auto) (0.0-15.0) % Eos % (Auto) (0.0-7.0) % Baso % (Auto) (0.0-1.5) % Neut # (Auto) (1.4-5.7) K/uL Lymph # (Auto) (0.6-2.4) K/uL [place] # (Auto) (0.0-0.8) K/uL Eos # (Auto) (0.0-0.7) K/uL Baso # (Auto) (0.0-0.1) K/uL Nucleated RBC % /100WBC Nucleated RBCs # K/uL ABG pH (7.35-7.45) ABG pCO2 (35-45) mmHG ABG pO2 (75-100) mmHG ABG HCO3 (22-26) mEq/L ABG Total CO2 ABG Base Excess (-2.0-2.0) Lactate 2.0 (0.20-2.00) mmol/L Sodium (136-145) mmol/L Potassium (3.5-5.1) mmol/L Chloride (98-107) mmol/L Carbon Dioxide (21.0-32.0) mmol/L BUN (7.0-18.0) mg/dL Creatinine (0.6-1.0) mg/dL Est Cr Clr Drug Dosing mL/min Estimated GFR (MDRD) ml/min Glucose (74-106) mg/dL Calcium (8.5-10.1) mg/dL Magnesium (1.8-2.4) mg/dL Total Bilirubin (0.2-1.0) mg/dL AST (15-37) IU/L ALT (14-63) IU/L Alkaline Phosphatase (46-116) U/L Troponin I (0.000-0.056) ng/mL Total Protein (6.4-8.2) g/dL Albumin (3.4-5.0) g/dL Globulin (2.6-4.0) g/dL Albumin/Globulin Ratio (0.9-1.6) Urine Color Urine Appearance Urine pH (5.0-8.0) Ur Specific [place] (1.001-1.035) Urine Protein (NEGATIVE) mg/dL Urine Glucose (UA) (NEGATIVE) mg/dL Urine Ketones (NEGATIVE) mg/dL Urine Occult Blood (NEGATIVE) Urine Nitrite (NEGATIVE) Urine Bilirubin (NEGATIVE) Urine Urobilinogen (<2.0) EU/dL Ur Leukocyte Esterase (NEGATIVE) Ketones (NEG) Meds: Medications Generic Name Dose Route Start Last Admin Trade Name Freq PRN Reason Stop Dose Admin Sodium Chloride 500 mls @ 999 mls/hr 05/25/19 16:15 05/25/19 16:55 Normal Saline IV 999 mls/hr .BOLUS JACY Administration Sodium Chloride 1,000 mls @ 125 mls/hr 05/25/19 20:15 Normal Saline IV ASDIRECTED JACY Discontinued Medications Generic Name Dose Route Start Last Admin Trade Name Janel PRN Reason Stop Dose Admin Albuterol/Ipratropium 3 ml 05/25/19 14:41 05/25/19 14:55 Duoneb 3.0-0.5 Mg/3 Ml NEB 05/25/19 14:42 3 ml ONETIME ONE Administration Departure - Departure Time of Disposition: 20:50 Disposition: Refer to Observation Condition: Fair Clinical Impression: Dehydration GI bleed Qualifiers: GI bleed type/associated pathology: unspecified gastrointestinal hemorrhage type Qualified Code(s): K92.2 - Gastrointestinal hemorrhage, unspecified Abdominal pain Qualifiers: Abdominal location: generalized Qualified Code(s): R10.84 - Generalized abdominal pain - Discharge Information *PRESCRIPTION DRUG MONITORING PROGRAM REVIEWED*: Yes *COPY OF PRESCRIPTION DRUG MONITORING REPORT IN PATIENT CESAR: Yes Referrals: Shimon Chavez MD [Primary Care Provider] - Sepsis Event Note - Evaluation Sepsis Screening Result: No Definite Risk - Focused Exam Vital Signs: Vital Signs Temp Pulse Resp BP Pulse Ox 05/25/19 19:05 97.1 F 86 18 127/36 L 93 L 05/25/19 19:00 94 90 L 05/25/19 18:45 95 91 L 05/25/19 18:30 92 90 L 05/25/19 18:00 93 89 L 05/25/19 14:01 97.9 F 109 H 20 112/72 81 L Date Exam was Performed: 05/25/19 Time Exam was Performed: 20:34 - My Orders Last 24 Hours: My Active Orders 05/25/19 14:26 EKG Documentation Completion [RC] STAT 05/25/19 14:41 RT Aerosol Therapy [RC] ASDIRECTED 05/25/19 16:10 Blood Culture x2 Reflex Set [OM.PC] Stat 05/25/19 16:15 Sodium Chloride 0.9% [Normal Saline] 500 ml IV .BOLUS 05/25/19 16:33 CULTURE BLOOD [BC] Stat 05/25/19 16:46 CULTURE BLOOD [BC] Stat 05/25/19 20:15 Sodium Chloride 0.9% @ 125 MLS/HR (1,000ml) Sodium Chloride 0.9% [Normal Saline ] 1,000 ml IV ASDIRECTED 05/25/19 20:29 Fecal Occult Blood Collection [RC] ASDIRECTED - Assessment/Plan Last 24 Hours: My Active Orders 05/25/19 14:26 EKG Documentation Completion [RC] STAT 05/25/19 14:41 RT Aerosol Therapy [RC] ASDIRECTED 05/25/19 16:10 Blood Culture x2 Reflex Set [OM.PC] Stat 05/25/19 16:15 Sodium Chloride 0.9% [Normal Saline] 500 ml IV .BOLUS 05/25/19 16:33 CULTURE BLOOD [BC] Stat 05/25/19 16:46 CULTURE BLOOD [BC] Stat 05/25/19 20:15 Sodium Chloride 0.9% @ 125 MLS/HR (1,000ml) Sodium Chloride 0.9% [Normal Saline ] 1,000 ml IV ASDIRECTED 05/25/19 20:29 Fecal Occult Blood Collection [RC] ASDIRECTED
[2019-05-25] MEDS: Sodium Chloride 0.9% 1,000 ML IV SCH (22:11)
[2019-05-25] MEDS ORDERED: Acetaminophen 325 MG Tab PO PRN (23:27)
[2019-05-25] MEDS ORDERED: Ondansetron 4 MG/2 ML SDV IVPUSH PRN (23:27)
[2019-05-25] MEDS ORDERED: Piperacillin/Tazobactam 3.375 GM in Sodium Chloride 0.9% 50 ML IV SCH (23:30)
--- NOTE | 2019-05-25 23:51 | PCM.HP.2 ---
H&P History of Present Illness - General Date of Service: 05/25/19 Admit Problem/Dx: Admission Diagnosis/Problem Admission Diagnosis/Problem Abdominal pain - History of Present Illness Initial Comments - Free Text/Narative: 88 yo female with pmh of atrial fibrillation, HTN, COPD, diverticulosis and CAD who presented with one day history of nausea, and abdominal pain. PAtient reports black stools. She felt like she had divertilculitis. She denies any fevers, chills, or red blood in her stools. Knee Pain Score (Numeric/FACES): 4 Abdomen Pain Score (Numeric/FACES): 0 - Related Data Allergies/Adverse Reactions: Allergies Allergy/AdvReac Type Severity Reaction Status Date / Time Sulfa (Sulfonamide Allergy Nausea and Verified 05/25/19 14:05 Antibiotics) Vomiting Home Medications: Home Meds Acetaminophen [Tylenol] 500 mg PO TID 08/16/16 [History] Apixaban [Eliquis] 2.5 mg PO BID 08/16/16 [History] Ascorbic Acid [Vitamin C] 1,000 mg PO DAILY 08/16/16 [History] Cholecalciferol (Vitamin D3) [Vitamin D3] 1,000 unit PO DAILY 08/16/16 [History] Diltiazem HCl [Dilt-XR] 120 mg PO DAILY 08/16/16 [History] Furosemide 40 mg PO DAILY 08/16/16 [History] Ipratropium/Albuterol Sulfate [Iprat-Albut 0.5-3(2.5) MG/3 ML] 3 ml NEB Q6HR PRN 08/16/16 [History] Levothyroxine 25 mcg PO ACBREAKFAST 08/16/16 [History] Metoprolol Tartrate 50 mg PO BID 08/16/16 [History] Pantoprazole [ProTONIX] 40 mg PO DAILY 08/16/16 [History] Potassium Chloride 20 meq PO DAILY 08/16/16 [History] Sertraline [Zoloft] 100 mg PO DAILY 08/16/16 [History] atorvaSTATin [Lipitor] 20 mg PO DAILY 08/16/16 [History] Past Medical History HEENT History: Reports: Hard of Hearing Cardiovascular History: Reports: Afib, Hypertension, [place] Other Cardiovascular History: Heart attack in 2015 Respiratory History: Reports: COPD Gastrointestinal History: Reports: Other (See Below) Other Gastrointestinal History: abdominal hernia Genitourinary History: Reports: Renal Disease [employer] History: Reports: Other OB/BYN History: hysterectomy Musculoskeletal History: Reports: Arthritis, Osteoporosis Neurological History: Reports: None Psychiatric History: Reports: Anxiety Endocrine/Metabolic History: Reports: Hypothyroidism, Other (See Below) Other Endocrine/Metabolic History: borderline DM II Hematologic History: Reports: Anemia Immunologic History: Reports: None Oncologic (Cancer) History: Reports: None Dermatologic History: Reports: None - Infectious Disease History Infectious Disease History: Reports: Measles - Past Surgical History HEENT Surgical History: Reports: Adenoidectomy, Tonsillectomy Cardiovascular Surgical History: Reports: None Respiratory Surgical History: Reports: None GI Surgical History: Reports: Appendectomy, Cholecystectomy, Colonoscopy Female Surgical History: Reports: Hysterectomy Endocrine Surgical History: Reports: None Neurological Surgical History: Reports: None Musculoskeletal Surgical History: Reports: Hip Replacement Oncologic Surgical History: Reports: None Dermatological Surgical History: Reports: None Social & Family History - Family History Family Medical History: Noncontributory : Reports: Other (See Below) Other Family History: Interstitial cystitis OBGYN: Reports: Other (See Below) Other OBGYN Family History: cysts Musculoskeletal: Reports: Fibromyalgia Neurological: Reports: CVA Psychiatric: Reports: Depression - Tobacco Use Smoking Status *Q: Former Smoker Years of Tobacco use: 60 Used Tobacco, but Quit: Yes Month/Year Tobacco Last Used: 2014 Second Hand Smoke Exposure: No - Caffeine Use Caffeine Use: Reports: Soda - Recreational Drug Use Recreational Drug Use: No H&P Review of Systems - Review of Systems: Review Of Systems: Comprehensive ROS is negative, except as noted in HPI. Exam - Exam Exam: See Below - Vital Signs Vital Signs: Last Vital Signs Temp 2.9 C L 05/25/19 21:59 Pulse 97 05/25/19 21:59 Resp 18 05/25/19 21:59 BP 120/64 05/25/19 21:59 Pulse Ox 91 L 05/25/19 21:59 Weight: 72.575 kg - Exam General: Alert, Oriented HEENT: Mucosa Moist & [place] Lungs: Clear to Auscultation, Normal Respiratory Effort Cardiovascular: Regular Rate, Regular Rhythm GI/Abdominal Exam: Normal Bowel Sounds, Soft, Non-Tender Extremities: Normal Range of Motion, Non-Tender Skin: Warm, Dry, Intact - Patient Data Lab Results Last 24 hrs: Laboratory Results - last 24 hr 05/25/19 05/25/19 05/25/19 Range/Units 14:44 14:44 14:44 WBC 18.43 H (4.0-11.0) K/uL RBC 4.24 L (4.30-5.90) M/uL Hgb 8.9 L (12.0-16.0) g/dL Hct 34.8 L (36.0-46.0) % MCV 82.1 (80.0-98.0) fL MCH 21.0 L (27.0-32.0) pg MCHC 25.6 L (31.0-37.0) g/dL RDW Std Deviation 57.7 (28.0-62.0) fl RDW Coeff of Nick 19 H (11.0-15.0) % Plt Count 334 (150-400) K/uL MPV 9.40 (7.40-12.00) fL Neut % (Auto) 86.2 H (48.0-80.0) % Lymph % (Auto) 5.4 L (16.0-40.0) % [place] % (Auto) 8.1 (0.0-15.0) % Eos % (Auto) 0.1 (0.0-7.0) % Baso % (Auto) 0.2 (0.0-1.5) % Neut # (Auto) 15.9 H (1.4-5.7) K/uL Lymph # (Auto) 1.0 (0.6-2.4) K/uL [place] # (Auto) 1.5 H (0.0-0.8) K/uL Eos # (Auto) 0.0 (0.0-0.7) K/uL Baso # (Auto) 0.0 (0.0-0.1) K/uL Nucleated RBC % 0.7 /100WBC Nucleated RBCs # 0 K/uL ABG pH (7.35-7.45) ABG pCO2 (35-45) mmHG ABG pO2 (75-100) mmHG ABG HCO3 (22-26) mEq/L ABG Total CO2 ABG Base Excess (-2.0-2.0) Lactate 2.2 H* (0.20-2.00) mmol/L Sodium 144 (136-145) mmol/L Potassium 5.6 H (3.5-5.1) mmol/L Chloride 107 (98-107) mmol/L Carbon Dioxide 27.2 (21.0-32.0) mmol/L BUN 35 H (7.0-18.0) mg/dL Creatinine 2.1 H (0.6-1.0) mg/dL Est Cr Clr Drug Dosing 16.34 mL/min Estimated GFR (MDRD) 22.2 ml/min Glucose 131 H (74-106) mg/dL Calcium 8.7 (8.5-10.1) mg/dL Magnesium 1.8 (1.8-2.4) mg/dL Total Bilirubin 0.6 (0.2-1.0) mg/dL AST 81 H (15-37) IU/L ALT 62 (14-63) IU/L Alkaline Phosphatase 86 (46-116) U/L Troponin I < 0.050 (0.000-0.056) ng/mL Total Protein 7.2 (6.4-8.2) g/dL Albumin 3.0 L (3.4-5.0) g/dL Globulin 4.2 H (2.6-4.0) g/dL Albumin/Globulin Ratio 0.7 L (0.9-1.6) Lipase (73-393) U/L Urine Color Urine Appearance Urine pH (5.0-8.0) Ur Specific [place] (1.001-1.035) Urine Protein (NEGATIVE) mg/dL Urine Glucose (UA) (NEGATIVE) mg/dL Urine Ketones (NEGATIVE) mg/dL Urine Occult Blood (NEGATIVE) Urine Nitrite (NEGATIVE) Urine Bilirubin (NEGATIVE) Urine Urobilinogen (<2.0) EU/dL Ur Leukocyte Esterase (NEGATIVE) Ketones (NEG) 05/25/19 05/25/19 05/25/19 Range/Units 14:44 16:24 17:30 WBC (4.0-11.0) K/uL RBC (4.30-5.90) M/uL Hgb (12.0-16.0) g/dL Hct (36.0-46.0) % MCV (80.0-98.0) fL MCH (27.0-32.0) pg MCHC (31.0-37.0) g/dL RDW Std Deviation (28.0-62.0) fl RDW Coeff of Nick (11.0-15.0) % Plt Count (150-400) K/uL MPV (7.40-12.00) fL Neut % (Auto) (48.0-80.0) % Lymph % (Auto) (16.0-40.0) % [place] % (Auto) (0.0-15.0) % Eos % (Auto) (0.0-7.0) % Baso % (Auto) (0.0-1.5) % Neut # (Auto) (1.4-5.7) K/uL Lymph # (Auto) (0.6-2.4) K/uL [place] # (Auto) (0.0-0.8) K/uL Eos # (Auto) (0.0-0.7) K/uL Baso # (Auto) (0.0-0.1) K/uL Nucleated RBC % /100WBC Nucleated RBCs # K/uL ABG pH 7.361 (7.35-7.45) ABG pCO2 49 H (35-45) mmHG ABG pO2 75 (75-100) mmHG ABG HCO3 28 H (22-26) mEq/L ABG Total CO2 26.5 ABG Base Excess 1.9 (-2.0-2.0) Lactate (0.20-2.00) mmol/L Sodium (136-145) mmol/L Potassium (3.5-5.1) mmol/L Chloride (98-107) mmol/L Carbon Dioxide (21.0-32.0) mmol/L BUN (7.0-18.0) mg/dL Creatinine (0.6-1.0) mg/dL Est Cr Clr Drug Dosing mL/min Estimated GFR (MDRD) ml/min Glucose (74-106) mg/dL Calcium (8.5-10.1) mg/dL Magnesium (1.8-2.4) mg/dL Total Bilirubin (0.2-1.0) mg/dL AST (15-37) IU/L ALT (14-63) IU/L Alkaline Phosphatase (46-116) U/L Troponin I (0.000-0.056) ng/mL Total Protein (6.4-8.2) g/dL Albumin (3.4-5.0) g/dL Globulin (2.6-4.0) g/dL Albumin/Globulin Ratio (0.9-1.6) Lipase (73-393) U/L Urine Color YELLOW Urine Appearance CLEAR Urine pH 5.5 (5.0-8.0) Ur Specific [place] 1.025 (1.001-1.035) Urine Protein NEGATIVE (NEGATIVE) mg/dL Urine Glucose (UA) NEGATIVE (NEGATIVE) mg/dL Urine Ketones NEGATIVE (NEGATIVE) mg/dL Urine Occult Blood NEGATIVE (NEGATIVE) Urine Nitrite NEGATIVE (NEGATIVE) Urine Bilirubin NEGATIVE (NEGATIVE) Urine Urobilinogen 0.2 (<2.0) EU/dL Ur Leukocyte Esterase NEGATIVE (NEGATIVE) Ketones NEGATIVE (NEG) 05/25/19 05/25/19 05/25/19 Range/Units 19:00 19:00 22:57 WBC 18.37 H (4.0-11.0) K/uL RBC 3.96 L (4.30-5.90) M/uL Hgb 8.3 L (12.0-16.0) g/dL Hct 32.0 L (36.0-46.0) % MCV 80.8 (80.0-98.0) fL MCH 21.0 L (27.0-32.0) pg MCHC 25.9 L (31.0-37.0) g/dL RDW Std Deviation 56.3 (28.0-62.0) fl RDW Coeff of Nick 19 H (11.0-15.0) % Plt Count 300 (150-400) K/uL MPV 9.40 (7.40-12.00) fL Neut % (Auto) 85.4 H (48.0-80.0) % Lymph % (Auto) 4.8 L (16.0-40.0) % [place] % (Auto) 9.5 (0.0-15.0) % Eos % (Auto) 0.1 (0.0-7.0) % Baso % (Auto) 0.2 (0.0-1.5) % Neut # (Auto) 15.7 H (1.4-5.7) K/uL Lymph # (Auto) 0.9 (0.6-2.4) K/uL [place] # (Auto) 1.7 H (0.0-0.8) K/uL Eos # (Auto) 0.0 (0.0-0.7) K/uL Baso # (Auto) 0.0 (0.0-0.1) K/uL Nucleated RBC % 0.6 /100WBC Nucleated RBCs # 0 K/uL ABG pH (7.35-7.45) ABG pCO2 (35-45) mmHG ABG pO2 (75-100) mmHG ABG HCO3 (22-26) mEq/L ABG Total CO2 ABG Base Excess (-2.0-2.0) Lactate 2.0 (0.20-2.00) mmol/L Sodium (136-145) mmol/L Potassium (3.5-5.1) mmol/L Chloride (98-107) mmol/L Carbon Dioxide (21.0-32.0) mmol/L BUN (7.0-18.0) mg/dL Creatinine (0.6-1.0) mg/dL Est Cr Clr Drug Dosing mL/min Estimated GFR (MDRD) ml/min Glucose (74-106) mg/dL Calcium (8.5-10.1) mg/dL Magnesium (1.8-2.4) mg/dL Total Bilirubin (0.2-1.0) mg/dL AST (15-37) IU/L ALT (14-63) IU/L Alkaline Phosphatase (46-116) U/L Troponin I (0.000-0.056) ng/mL Total Protein (6.4-8.2) g/dL Albumin (3.4-5.0) g/dL Globulin (2.6-4.0) g/dL Albumin/Globulin Ratio (0.9-1.6) Lipase 100 (73-393) U/L Urine Color Urine Appearance Urine pH (5.0-8.0) Ur Specific [place] (1.001-1.035) Urine Protein (NEGATIVE) mg/dL Urine Glucose (UA) (NEGATIVE) mg/dL Urine Ketones (NEGATIVE) mg/dL Urine Occult Blood (NEGATIVE) Urine Nitrite (NEGATIVE) Urine Bilirubin (NEGATIVE) Urine Urobilinogen (<2.0) EU/dL Ur Leukocyte Esterase (NEGATIVE) Ketones (NEG) Result Diagrams: 05/26/19 06:30 05/26/19 06:30 Sepsis Event Note - Evaluation Sepsis Screening Result: No Definite Risk - Focused Exam Vital Signs: Vital Signs Temp Pulse Resp BP Pulse Ox 05/25/19 21:59 2.9 C L 97 18 120/64 91 L 05/25/19 21:30 36.1 C 92 18 137/83 94 L 05/25/19 20:30 94 18 135/59 L 97 05/25/19 19:05 36.2 C 86 18 127/36 L 93 L 05/25/19 19:00 94 90 L 05/25/19 18:45 95 91 L 05/25/19 18:30 92 90 L 05/25/19 18:00 93 89 L 05/25/19 14:01 36.6 C 109 H 20 112/72 81 L Date Exam was Performed: 05/26/19 Time Exam was Performed: 19:11 Problem List Initiated/Reviewed/Updated: Yes Orders Last 24hrs: Active Orders 24 hr Category Date Time Status Admission Status [Patient Status] [ADT] Stat ADT 05/25/19 20:52 Active Antiembolic Devices [RC] PER UNIT ROUTINE Care 05/25/19 23:28 Active EKG Documentation Completion [RC] STAT Care 05/25/19 14:26 Active Fecal Occult Blood Collection [RC] ASDIRECTED Care 05/25/19 20:29 Active Oxygen Therapy [RC] PRN Care 05/25/19 23:27 Active RT Aerosol Therapy [RC] ASDIRECTED Care 05/25/19 14:41 Active Up ad Merly [RC] ASDIRECTED Care 05/25/19 23:27 Active VTE/DVT Education [RC] PER UNIT ROUTINE Care 05/25/19 23:27 Active Vital Signs [RC] Q4H Care 05/25/19 23:27 Active Clear Liquid Diet [DIET] Diet 05/25/19 Breakfast Active C DIFFICILE AG/TOXIN W/REFLEX [RM] Routine Lab 05/25/19 23:29 Ordered CBC WITH AUTO DIFF [HEME] AM Lab 05/26/19 05:11 Ordered COMPREHENSIVE METABOLIC PN,CMP [CHEM] AM Lab 05/26/19 05:11 Ordered CULTURE BLOOD [BC] Stat Lab 05/25/19 16:33 Received CULTURE BLOOD [BC] Stat Lab 05/25/19 16:46 Received STOOL CULTURE/SHIGA TOXIN [MREF] Routine Lab 05/25/19 23:29 Ordered Acetaminophen [Tylenol] Med 05/25/19 23:27 Ordered 650 mg PO Q4H PRN Diltiazem HCl [Dilt-XR] Med 05/26/19 09:00 Ordered 120 mg PO DAILY Levothyroxine Med 05/26/19 07:30 Ordered 25 mcg PO ACBREAKFAST Metoprolol Tartrate [Lopressor] Med 05/26/19 09:00 Ordered 50 mg PO BID Ondansetron [Zofran] Med 05/25/19 23:27 Active 4 mg IVPUSH Q4H PRN Pantoprazole [ProTONIX IV] 40 mg Med 05/25/19 23:45 Active Sodium Chloride 0.9% [Normal Saline] 10 ml IV Q12H Piperacillin/Tazobactam [Piperacil-Tazobact] 3.375 gm Med 05/25/19 23:30 Ordered Sodium Chloride 0.9% [Normal Saline] 50 ml IV Q6H Sertraline [Zoloft] Med 05/26/19 09:00 Ordered 100 mg PO DAILY Sodium Chloride 0.9% [Normal Saline] 1,000 ml Med 05/25/19 20:15 Active IV ASDIRECTED Sodium Chloride 0.9% [Normal Saline] 500 ml Med 05/25/19 16:15 Active IV .BOLUS Blood Culture x2 Reflex Set [OM.PC] Stat Oth 05/25/19 16:10 Ordered Sequential Compression Device [OM.PC] Per Unit Routine Oth 05/25/19 23:27 Ordered Resuscitation Status Routine Resus Stat 05/25/19 23:27 Ordered Medication Orders Acetaminophen (Tylenol) 650 mg PO Q4H PRN PRN Reason: Pain (Mild 1-3)/fever Sodium Chloride (Normal Saline) 500 mls @ 999 mls/hr IV .BOLUS JACY Last Infusion: 05/25/19 21:00 Dose: 999 mls/hr Admin: 05/25/19 16:55 Dose: 999 mls/hr Sodium Chloride (Normal Saline) 1,000 mls @ 75 mls/hr IV ASDIRECTED JACY Last Admin: 05/25/19 22:11 Dose: 125 mls/hr Piperacillin Sod/Tazobactam (Sod 3.375 gm/ Sodium Chloride) 50 mls @ 100 mls/ hr IV Q6H JACY Pantoprazole Sodium 40 mg/ (Sodium Chloride) 10 mls @ 300 mls/hr IV Q12H JACY Levothyroxine Sodium (Levothyroxine) 25 mcg PO ACBREAKFAST JACY Metoprolol Tartrate (Lopressor) 50 mg PO BID JACY Non-Formulary Medication (Diltiazem Hcl [Dilt-Xr]) 120 mg PO DAILY JACY Ondansetron HCl (Zofran) 4 mg IVPUSH Q4H PRN PRN Reason: Nausea Sertraline HCl (Zoloft) 100 mg PO DAILY JACY Assessment/Plan Comment:: 88 yo female admitted for nausea, abdominal pain. CT scan negative for sings of inflammation but due to history and elevated white count will treat with antibiotics to cover for possible early diverticultis. We will check stool studies. We will hold Eliquis due to heme positive stools.
[2019-05-26] MEDS: Pantoprazole 40 MG in Sodium Chloride 0.9% 10 ML IV SCH ×2 (00:25→11:47)
[2019-05-26] MEDS: Piperacillin/Tazobactam 2.25 GM in Sodium Chloride 0.9% 50 ML IV SCH ×5 (00:31→23:31)
[2019-05-26 07:07] LABS: CARBON DIOXIDE,CO2 28.7 mmol/L (21.0-32.0); POTASSIUM,K 4.6 mmol/L (3.5-5.1)
[2019-05-26] MEDS: Sodium Chloride 0.9% 1,000 ML IV SCH ×2 (08:31→23:30)
[2019-05-26] MEDS ORDERED: Levothyroxine 25 MCG Tab ONE (08:56)
[2019-05-26] MEDS ORDERED: Sertraline 100 MG Tab ONE (08:57)
[2019-05-26] MEDS ORDERED: Metoprolol Tartrate 50 MG Tab ONE (08:57)
[2019-05-26] MEDS: Levothyroxine 25 MCG Tab PO SCH (09:01)
[2019-05-26] MEDS: Sertraline 100 MG Tab PO SCH (09:01)
[2019-05-26] MEDS: Metoprolol Tartrate 50 MG Tab PO SCH ×2 (09:02→22:06)
[2019-05-26] MEDS: DILTIAZEM HCL 120 MG PO SCH ×2 (09:02→10:30)
--- NOTE | 2019-05-26 10:59 | PCM.PN ---
- General Info Date of Service: 05/26/19 Subjective Update: no acute events overnight. complaining of right facial pain, swelling. No abdominal pain. NO BMs. - Patient Data Vitals - Most Recent: Last Vital Signs Temp 36.8 C 05/26/19 07:00 Pulse 119 H 05/26/19 09:02 Resp 16 05/26/19 07:00 BP 143/75 H 05/26/19 09:02 Pulse Ox 90 L 05/26/19 07:00 Weight - Most Recent: 72.575 kg I&O - Last 24 Hours: Intake & Output 05/25/19 05/26/19 05/26/19 22:59 06:59 14:59 Intake Total 2076 Output Total 264 Balance 1812 Lab Results Last 24 Hours: Laboratory Results - last 24 hr 05/25/19 05/25/19 05/25/19 Range/Units 14:44 14:44 14:44 WBC 18.43 H (4.0-11.0) K/uL RBC 4.24 L (4.30-5.90) M/uL Hgb 8.9 L (12.0-16.0) g/dL Hct 34.8 L (36.0-46.0) % MCV 82.1 (80.0-98.0) fL MCH 21.0 L (27.0-32.0) pg MCHC 25.6 L (31.0-37.0) g/dL RDW Std Deviation 57.7 (28.0-62.0) fl RDW Coeff of Nick 19 H (11.0-15.0) % Plt Count 334 (150-400) K/uL MPV 9.40 (7.40-12.00) fL Neut % (Auto) 86.2 H (48.0-80.0) % Lymph % (Auto) 5.4 L (16.0-40.0) % [place] % (Auto) 8.1 (0.0-15.0) % Eos % (Auto) 0.1 (0.0-7.0) % Baso % (Auto) 0.2 (0.0-1.5) % Neut # (Auto) 15.9 H (1.4-5.7) K/uL Lymph # (Auto) 1.0 (0.6-2.4) K/uL [place] # (Auto) 1.5 H (0.0-0.8) K/uL Eos # (Auto) 0.0 (0.0-0.7) K/uL Baso # (Auto) 0.0 (0.0-0.1) K/uL Nucleated RBC % 0.7 /100WBC Nucleated RBCs # 0 K/uL ABG pH (7.35-7.45) ABG pCO2 (35-45) mmHG ABG pO2 (75-100) mmHG ABG HCO3 (22-26) mEq/L ABG Total CO2 ABG Base Excess (-2.0-2.0) Lactate 2.2 H* (0.20-2.00) mmol/L Sodium 144 (136-145) mmol/L Potassium 5.6 H (3.5-5.1) mmol/L Chloride 107 (98-107) mmol/L Carbon Dioxide 27.2 (21.0-32.0) mmol/L BUN 35 H (7.0-18.0) mg/dL Creatinine 2.1 H (0.6-1.0) mg/dL Est Cr Clr Drug Dosing 16.34 mL/min Estimated GFR (MDRD) 22.2 ml/min Glucose 131 H (74-106) mg/dL Calcium 8.7 (8.5-10.1) mg/dL Magnesium 1.8 (1.8-2.4) mg/dL Total Bilirubin 0.6 (0.2-1.0) mg/dL AST 81 H (15-37) IU/L ALT 62 (14-63) IU/L Alkaline Phosphatase 86 (46-116) U/L Troponin I < 0.050 (0.000-0.056) ng/mL Total Protein 7.2 (6.4-8.2) g/dL Albumin 3.0 L (3.4-5.0) g/dL Globulin 4.2 H (2.6-4.0) g/dL Albumin/Globulin Ratio 0.7 L (0.9-1.6) Lipase (73-393) U/L Urine Color Urine Appearance Urine pH (5.0-8.0) Ur Specific [place] (1.001-1.035) Urine Protein (NEGATIVE) mg/dL Urine Glucose (UA) (NEGATIVE) mg/dL Urine Ketones (NEGATIVE) mg/dL Urine Occult Blood (NEGATIVE) Urine Nitrite (NEGATIVE) Urine Bilirubin (NEGATIVE) Urine Urobilinogen (<2.0) EU/dL Ur Leukocyte Esterase (NEGATIVE) Ketones (NEG) 05/25/19 05/25/19 05/25/19 Range/Units 14:44 16:24 17:30 WBC (4.0-11.0) K/uL RBC (4.30-5.90) M/uL Hgb (12.0-16.0) g/dL Hct (36.0-46.0) % MCV (80.0-98.0) fL MCH (27.0-32.0) pg MCHC (31.0-37.0) g/dL RDW Std Deviation (28.0-62.0) fl RDW Coeff of Nick (11.0-15.0) % Plt Count (150-400) K/uL MPV (7.40-12.00) fL Neut % (Auto) (48.0-80.0) % Lymph % (Auto) (16.0-40.0) % [place] % (Auto) (0.0-15.0) % Eos % (Auto) (0.0-7.0) % Baso % (Auto) (0.0-1.5) % Neut # (Auto) (1.4-5.7) K/uL Lymph # (Auto) (0.6-2.4) K/uL [place] # (Auto) (0.0-0.8) K/uL Eos # (Auto) (0.0-0.7) K/uL Baso # (Auto) (0.0-0.1) K/uL Nucleated RBC % /100WBC Nucleated RBCs # K/uL ABG pH 7.361 (7.35-7.45) ABG pCO2 49 H (35-45) mmHG ABG pO2 75 (75-100) mmHG ABG HCO3 28 H (22-26) mEq/L ABG Total CO2 26.5 ABG Base Excess 1.9 (-2.0-2.0) Lactate (0.20-2.00) mmol/L Sodium (136-145) mmol/L Potassium (3.5-5.1) mmol/L Chloride (98-107) mmol/L Carbon Dioxide (21.0-32.0) mmol/L BUN (7.0-18.0) mg/dL Creatinine (0.6-1.0) mg/dL Est Cr Clr Drug Dosing mL/min Estimated GFR (MDRD) ml/min Glucose (74-106) mg/dL Calcium (8.5-10.1) mg/dL Magnesium (1.8-2.4) mg/dL Total Bilirubin (0.2-1.0) mg/dL AST (15-37) IU/L ALT (14-63) IU/L Alkaline Phosphatase (46-116) U/L Troponin I (0.000-0.056) ng/mL Total Protein (6.4-8.2) g/dL Albumin (3.4-5.0) g/dL Globulin (2.6-4.0) g/dL Albumin/Globulin Ratio (0.9-1.6) Lipase (73-393) U/L Urine Color YELLOW Urine Appearance CLEAR Urine pH 5.5 (5.0-8.0) Ur Specific [place] 1.025 (1.001-1.035) Urine Protein NEGATIVE (NEGATIVE) mg/dL Urine Glucose (UA) NEGATIVE (NEGATIVE) mg/dL Urine Ketones NEGATIVE (NEGATIVE) mg/dL Urine Occult Blood NEGATIVE (NEGATIVE) Urine Nitrite NEGATIVE (NEGATIVE) Urine Bilirubin NEGATIVE (NEGATIVE) Urine Urobilinogen 0.2 (<2.0) EU/dL Ur Leukocyte Esterase NEGATIVE (NEGATIVE) Ketones NEGATIVE (NEG) 05/25/19 05/25/19 05/25/19 Range/Units 19:00 19:00 22:57 WBC 18.37 H (4.0-11.0) K/uL RBC 3.96 L (4.30-5.90) M/uL Hgb 8.3 L (12.0-16.0) g/dL Hct 32.0 L (36.0-46.0) % MCV 80.8 (80.0-98.0) fL MCH 21.0 L (27.0-32.0) pg MCHC 25.9 L (31.0-37.0) g/dL RDW Std Deviation 56.3 (28.0-62.0) fl RDW Coeff of Nick 19 H (11.0-15.0) % Plt Count 300 (150-400) K/uL MPV 9.40 (7.40-12.00) fL Neut % (Auto) 85.4 H (48.0-80.0) % Lymph % (Auto) 4.8 L (16.0-40.0) % [place] % (Auto) 9.5 (0.0-15.0) % Eos % (Auto) 0.1 (0.0-7.0) % Baso % (Auto) 0.2 (0.0-1.5) % Neut # (Auto) 15.7 H (1.4-5.7) K/uL Lymph # (Auto) 0.9 (0.6-2.4) K/uL [place] # (Auto) 1.7 H (0.0-0.8) K/uL Eos # (Auto) 0.0 (0.0-0.7) K/uL Baso # (Auto) 0.0 (0.0-0.1) K/uL Nucleated RBC % 0.6 /100WBC Nucleated RBCs # 0 K/uL ABG pH (7.35-7.45) ABG pCO2 (35-45) mmHG ABG pO2 (75-100) mmHG ABG HCO3 (22-26) mEq/L ABG Total CO2 ABG Base Excess (-2.0-2.0) Lactate 2.0 (0.20-2.00) mmol/L Sodium (136-145) mmol/L Potassium (3.5-5.1) mmol/L Chloride (98-107) mmol/L Carbon Dioxide (21.0-32.0) mmol/L BUN (7.0-18.0) mg/dL Creatinine (0.6-1.0) mg/dL Est Cr Clr Drug Dosing mL/min Estimated GFR (MDRD) ml/min Glucose (74-106) mg/dL Calcium (8.5-10.1) mg/dL Magnesium (1.8-2.4) mg/dL Total Bilirubin (0.2-1.0) mg/dL AST (15-37) IU/L ALT (14-63) IU/L Alkaline Phosphatase (46-116) U/L Troponin I (0.000-0.056) ng/mL Total Protein (6.4-8.2) g/dL Albumin (3.4-5.0) g/dL Globulin (2.6-4.0) g/dL Albumin/Globulin Ratio (0.9-1.6) Lipase 100 (73-393) U/L Urine Color Urine Appearance Urine pH (5.0-8.0) Ur Specific [place] (1.001-1.035) Urine Protein (NEGATIVE) mg/dL Urine Glucose (UA) (NEGATIVE) mg/dL Urine Ketones (NEGATIVE) mg/dL Urine Occult Blood (NEGATIVE) Urine Nitrite (NEGATIVE) Urine Bilirubin (NEGATIVE) Urine Urobilinogen (<2.0) EU/dL Ur Leukocyte Esterase (NEGATIVE) Ketones (NEG) 05/26/19 05/26/19 Range/Units 06:30 06:30 WBC 20.62 H (4.0-11.0) K/uL RBC 4.05 L (4.30-5.90) M/uL Hgb 8.5 L (12.0-16.0) g/dL Hct 33.0 L (36.0-46.0) % MCV 81.5 (80.0-98.0) fL MCH 21.0 L (27.0-32.0) pg MCHC 25.8 L (31.0-37.0) g/dL RDW Std Deviation 57.0 (28.0-62.0) fl RDW Coeff of Nick 19 H (11.0-15.0) % Plt Count 305 (150-400) K/uL MPV 9.40 (7.40-12.00) fL Neut % (Auto) 89.4 H (48.0-80.0) % Lymph % (Auto) 3.2 L (16.0-40.0) % [place] % (Auto) 7.2 (0.0-15.0) % Eos % (Auto) 0.0 (0.0-7.0) % Baso % (Auto) 0.2 (0.0-1.5) % Neut # (Auto) 18.4 H (1.4-5.7) K/uL Lymph # (Auto) 0.7 (0.6-2.4) K/uL [place] # (Auto) 1.5 H (0.0-0.8) K/uL Eos # (Auto) 0.0 (0.0-0.7) K/uL Baso # (Auto) 0.0 (0.0-0.1) K/uL Nucleated RBC % 0.7 /100WBC Nucleated RBCs # 0 K/uL ABG pH (7.35-7.45) ABG pCO2 (35-45) mmHG ABG pO2 (75-100) mmHG ABG HCO3 (22-26) mEq/L ABG Total CO2 ABG Base Excess (-2.0-2.0) Lactate (0.20-2.00) mmol/L Sodium 146 H (136-145) mmol/L Potassium 4.6 (3.5-5.1) mmol/L Chloride 109 H (98-107) mmol/L Carbon Dioxide 28.7 (21.0-32.0) mmol/L BUN 29 H (7.0-18.0) mg/dL Creatinine 1.5 H (0.6-1.0) mg/dL Est Cr Clr Drug Dosing 22.88 mL/min Estimated GFR (MDRD) 32.7 ml/min Glucose 127 H (74-106) mg/dL Calcium 8.4 L (8.5-10.1) mg/dL Magnesium (1.8-2.4) mg/dL Total Bilirubin 0.6 (0.2-1.0) mg/dL AST 59 H (15-37) IU/L ALT 55 (14-63) IU/L Alkaline Phosphatase 77 (46-116) U/L Troponin I (0.000-0.056) ng/mL Total Protein 6.6 (6.4-8.2) g/dL Albumin 2.7 L (3.4-5.0) g/dL Globulin 3.9 (2.6-4.0) g/dL Albumin/Globulin Ratio 0.7 L (0.9-1.6) Lipase (73-393) U/L Urine Color Urine Appearance Urine pH (5.0-8.0) Ur Specific [place] (1.001-1.035) Urine Protein (NEGATIVE) mg/dL Urine Glucose (UA) (NEGATIVE) mg/dL Urine Ketones (NEGATIVE) mg/dL Urine Occult Blood (NEGATIVE) Urine Nitrite (NEGATIVE) Urine Bilirubin (NEGATIVE) Urine Urobilinogen (<2.0) EU/dL Ur Leukocyte Esterase (NEGATIVE) Ketones (NEG) Med Orders - Current: Current Medications Acetaminophen (Tylenol) 650 mg PO Q4H PRN PRN Reason: Pain (Mild 1-3)/fever Sodium Chloride (Normal Saline) 500 mls @ 999 mls/hr IV .BOLUS [facility] Last Infusion: 05/25/19 21:00 Dose: Infused Sodium Chloride (Normal Saline) 1,000 mls @ 75 mls/hr IV ASDIRECTED [facility] Last Admin: 05/26/19 08:31 Dose: 125 mls/hr Pantoprazole Sodium 40 mg/ (Sodium Chloride) 10 mls @ 300 mls/hr IV Q12H [facility] Last Admin: 05/26/19 00:25 Dose: 300 mls/hr Piperacillin Sod/Tazobactam (Sod 2.25 gm/ Sodium Chloride) 50 mls @ 100 mls/hr IV Q6H [facility] Last Admin: 05/26/19 04:04 Dose: 100 mls/hr Vancomycin HCl 1 gm/ Sodium (Chloride) 250 mls @ 250 mls/hr IV ONETIME ONE Stop: 05/26/19 10:59 Last Admin: 05/26/19 10:13 Dose: 250 mls/hr Levothyroxine Sodium (Levothyroxine) 25 mcg PO ACBREAKFAST [facility] Last Admin: 05/26/19 09:01 Dose: 25 mcg Metoprolol Tartrate (Lopressor) 50 mg PO BID [facility] Last Admin: 05/26/19 09:02 Dose: 50 mg Ondansetron HCl (Zofran) 4 mg IVPUSH Q4H PRN PRN Reason: Nausea Diltiazem Hcl [Dilt- (Xr] 120 Mg) 1 each PO DAILY [facility] Last Admin: 05/26/19 10:30 Dose: 1 each Sertraline HCl (Zoloft) 100 mg PO DAILY [facility] Last Admin: 05/26/19 09:01 Dose: 100 mg Vancomycin HCl (Pharmacy To Dose - Vancomycin) 1 dose .XX ASDIRECTED [facility] Discontinued Medications Albuterol/Ipratropium (Duoneb 3.0-0.5 Mg/3 Ml) 3 ml NEB ONETIME ONE Stop: 05/25/19 14:42 Last Admin: 05/25/19 14:55 Dose: 3 ml Metronidazole 500 mg/ Premix 100 mls @ 100 mls/hr IV QID [facility] Levothyroxine Sodium (Levothyroxine) Confirm Administered Dose 25 mcg .ROUTE .STK-MED ONE Stop: 05/26/19 08:57 Last Admin: 05/26/19 09:58 Dose: Not Given Metoprolol Tartrate (Lopressor) Confirm Administered Dose 50 mg .ROUTE .STK-MED ONE Stop: 05/26/19 08:58 Last Admin: 05/26/19 09:58 Dose: Not Given Sertraline HCl (Zoloft) Confirm Administered Dose 100 mg .ROUTE .STK-MED ONE Stop: 05/26/19 08:58 Last Admin: 05/26/19 09:58 Dose: Not Given - Exam General: Alert, Oriented, Cooperative HEENT: Other (Mild swellling on right maxillary area. some tenderness to touch.) Lungs: Clear to Auscultation, Normal Respiratory Effort. No: Crackles, Wheezing Cardiovascular: Irregular Rhythm, Tachycardia GI/Abdominal Exam: Other (hypoactive, non tender, non distended) Extremities: Normal Inspection, No Pedal Edema Skin: Warm, Dry Sepsis Event Note - Evaluation Sepsis Screening Result: No Definite Risk - Focused Exam Vital Signs: Vital Signs Temp Pulse Pulse Resp BP BP Pulse Ox 05/26/19 09:02 119 H 143/75 H 05/26/19 07:00 36.8 C 119 H 16 143/75 H 90 L 05/26/19 03:56 37.4 C 101 H 18 147/87 H 93 L Date Exam was Performed: 05/26/19 Time Exam was Performed: 11:20 - Problem List Review Problem List Initiated/Reviewed/Updated: Yes - My Orders Last 24 Hours: My Active Orders 05/26/19 09:15 Pharmacy to Dose - Vancomycin 1 dose .XX ASDIRECTED 05/26/19 10:00 Vancomycin [Vancocin] 1 gm Sodium Chloride 0.9% [Normal Saline (AdvBag)] 250 ml IV ONETIME 05/27/19 09:30 VANCOMYCIN TROUGH [CHEM] Routine - Plan Plan:: A: 1. Suspected Parotitis 2. Heme positive stool 3. Acute kidney injury 4. PMH Afib, COPD, hypertension, diverticulitis P: 1. Will continue with maintenance fluids for now NS at 75 ml/hr. Encourage PO intake. Will add vancomycin for suspected right parotitis and continue with zosyn for now. Holding Eliquis due to heme positive stool. SCDs in place. Continue home meds for Afib, hypertension. Will get CT soft tissue of neck to assess for right sided parotitis. Dispo: 2-3 days.
[2019-05-26] MEDS ORDERED: metroNIDAZOLE/Normal Saline 500 MG in Premix Bag 1 BAG IV SCH (12:00)
[2019-05-27] MEDS: Pantoprazole 40 MG in Sodium Chloride 0.9% 10 ML IV SCH ×3 (00:48→23:48)
[2019-05-27] MEDS: Piperacillin/Tazobactam 2.25 GM in Sodium Chloride 0.9% 50 ML IV SCH (05:36)
[2019-05-27 06:03] LABS: CARBON DIOXIDE,CO2 30.3 mmol/L (21.0-32.0); POTASSIUM,K 4.4 mmol/L (3.5-5.1)
[2019-05-27] MEDS: Levothyroxine 25 MCG Tab PO SCH (06:40)
[2019-05-27] MEDS: Metoprolol Tartrate 50 MG Tab PO SCH ×2 (08:45→20:34)
[2019-05-27] MEDS: DILTIAZEM HCL 120 MG PO SCH (08:46)
[2019-05-27] MEDS: Sertraline 100 MG Tab PO SCH (08:46)
[2019-05-27] MEDS ORDERED: Lactated Ringers 1,000 ML IV SCH (09:30)
--- NOTE | 2019-05-27 10:49 | PCM.PN ---
- General Info Date of Service: 05/27/19 Subjective Update: no acute events overnight. states she feels better this morning. No BM yet. - Patient Data Vitals - Most Recent: Last Vital Signs Temp 36.4 C 05/27/19 07:10 Pulse 96 05/27/19 08:45 Resp 18 05/27/19 07:10 BP 132/75 05/27/19 08:45 Pulse Ox 96 05/27/19 07:10 Weight - Most Recent: 72.575 kg I&O - Last 24 Hours: Intake & Output 05/26/19 05/27/19 05/27/19 22:59 06:59 14:59 Intake Total 1368 300 Output Total 405 Balance 1368 -105 Lab Results Last 24 Hours: Laboratory Results - last 24 hr 05/27/19 05/27/19 05/27/19 Range/Units 05:05 05:05 09:47 WBC 15.70 H (4.0-11.0) K/uL RBC 3.88 L (4.30-5.90) M/uL Hgb 8.1 L (12.0-16.0) g/dL Hct 32.7 L (36.0-46.0) % MCV 84.3 (80.0-98.0) fL MCH 20.9 L (27.0-32.0) pg MCHC 24.8 L (31.0-37.0) g/dL RDW Std Deviation 60.2 (28.0-62.0) fl RDW Coeff of Nick 19 H (11.0-15.0) % Plt Count 288 (150-400) K/uL MPV 9.50 (7.40-12.00) fL Neut % (Auto) 86.0 H (48.0-80.0) % Lymph % (Auto) 5.4 L (16.0-40.0) % [place] % (Auto) 8.2 (0.0-15.0) % Eos % (Auto) 0.3 (0.0-7.0) % Baso % (Auto) 0.1 (0.0-1.5) % Neut # (Auto) 13.5 H (1.4-5.7) K/uL Lymph # (Auto) 0.9 (0.6-2.4) K/uL [place] # (Auto) 1.3 H (0.0-0.8) K/uL Eos # (Auto) 0.0 (0.0-0.7) K/uL Baso # (Auto) 0.0 (0.0-0.1) K/uL Nucleated RBC % 1.0 /100WBC Nucleated RBCs # 0 K/uL Sodium 151 H (136-145) mmol/L Potassium 4.4 (3.5-5.1) mmol/L Chloride 114 H (98-107) mmol/L Carbon Dioxide 30.3 (21.0-32.0) mmol/L BUN 18 (7.0-18.0) mg/dL Creatinine 1.1 H (0.6-1.0) mg/dL Est Cr Clr Drug Dosing 31.20 mL/min Estimated GFR (MDRD) 46.8 ml/min Glucose 105 (74-106) mg/dL Calcium 8.5 (8.5-10.1) mg/dL Total Bilirubin 0.4 (0.2-1.0) mg/dL AST 37 (15-37) IU/L ALT 47 (14-63) IU/L Alkaline Phosphatase 71 (46-116) U/L Total Protein 6.0 L (6.4-8.2) g/dL Albumin 2.4 L (3.4-5.0) g/dL Globulin 3.6 (2.6-4.0) g/dL Albumin/Globulin Ratio 0.7 L (0.9-1.6) Vancomycin Trough 5.0 (5.0-10.0) ug/mL Max Results Last 24 Hours: Microbiology 05/25/19 16:46 Aerobic Blood Culture - Preliminary Blood - Venous - Lab Draw NO GROWTH AFTER 1 DAY Anaerobic Blood Culture - Preliminary NO GROWTH AFTER 1 DAY 05/25/19 16:33 Aerobic Blood Culture - Preliminary Blood - Venous NO GROWTH AFTER 1 DAY Anaerobic Blood Culture - Preliminary NO GROWTH AFTER 1 DAY Med Orders - Current: Current Medications Acetaminophen (Tylenol) 650 mg PO Q4H PRN PRN Reason: Pain (Mild 1-3)/fever Diltiazem HCl (Cardizem Cd) 120 mg PO DAILY [facility] Pantoprazole Sodium 40 mg/ (Sodium Chloride) 10 mls @ 300 mls/hr IV Q12H [facility] Last Admin: 05/27/19 00:48 Dose: 300 mls/hr Metronidazole 500 mg/ Premix 100 mls @ 100 mls/hr IV QID [facility] Vancomycin HCl 1 gm/ Sodium (Chloride) 250 mls @ 250 mls/hr IV Q24H [facility] Last Admin: 05/27/19 10:40 Dose: 250 mls/hr Levothyroxine Sodium (Levothyroxine) 25 mcg PO ACBREAKFAST [facility] Last Admin: 05/27/19 06:40 Dose: 25 mcg Metoprolol Tartrate (Lopressor) 50 mg PO BID [facility] Last Admin: 05/27/19 08:45 Dose: 50 mg Ondansetron HCl (Zofran) 4 mg IVPUSH Q4H PRN PRN Reason: Nausea Sertraline HCl (Zoloft) 100 mg PO DAILY [facility] Last Admin: 05/27/19 08:46 Dose: 100 mg Vancomycin HCl (Pharmacy To Dose - Vancomycin) 1 dose .XX ASDIRECTED [facility] Discontinued Medications Albuterol/Ipratropium (Duoneb 3.0-0.5 Mg/3 Ml) 3 ml NEB ONETIME ONE Stop: 05/25/19 14:42 Last Admin: 05/25/19 14:55 Dose: 3 ml Sodium Chloride (Normal Saline) 500 mls @ 999 mls/hr IV .BOLUS [facility] Last Infusion: 05/25/19 21:00 Dose: Infused Sodium Chloride (Normal Saline) 1,000 mls @ 75 mls/hr IV ASDIRECTED [facility] Last Admin: 05/26/19 23:30 Dose: 125 mls/hr Piperacillin Sod/Tazobactam (Sod 2.25 gm/ Sodium Chloride) 50 mls @ 100 mls/hr IV Q6H [facility] Last Admin: 05/27/19 05:36 Dose: 100 mls/hr Metronidazole 500 mg/ Premix 100 mls @ 100 mls/hr IV QID [facility] Vancomycin HCl 1 gm/ Sodium (Chloride) 250 mls @ 250 mls/hr IV ONETIME ONE Stop: 05/26/19 10:59 Last Admin: 05/26/19 10:13 Dose: 250 mls/hr Lactated Ringer's (Ringers, Lactated) 1,000 mls @ 100 mls/hr IV ASDIRECTED [facility] Levothyroxine Sodium (Levothyroxine) Confirm Administered Dose 25 mcg .ROUTE .STK-MED ONE Stop: 05/26/19 08:57 Last Admin: 05/26/19 09:58 Dose: Not Given Metoprolol Tartrate (Lopressor) Confirm Administered Dose 50 mg .ROUTE .STK-MED ONE Stop: 05/26/19 08:58 Last Admin: 05/26/19 09:58 Dose: Not Given Diltiazem Hcl [Dilt- (Xr] 120 Mg) 1 each PO DAILY [facility] Last Admin: 05/27/19 08:46 Dose: 1 each Sertraline HCl (Zoloft) Confirm Administered Dose 100 mg .ROUTE .STK-MED ONE Stop: 05/26/19 08:58 Last Admin: 05/26/19 09:58 Dose: Not Given - Exam General: Alert, Oriented, Cooperative Lungs: Clear to Auscultation, Normal Respiratory Effort. No: Crackles, Wheezing Cardiovascular: Regular Rate, Irregular Rhythm GI/Abdominal Exam: Normal Bowel Sounds, Soft, Non-Tender Extremities: Normal Inspection, Non-Tender Sepsis Event Note - Evaluation Sepsis Screening Result: Sepsis Risk - Focused Exam Vital Signs: Vital Signs Temp Pulse Pulse Resp BP BP Pulse Ox 05/27/19 08:45 96 132/75 05/27/19 07:10 36.4 C 98 18 126/70 96 05/27/19 04:00 36.3 C 104 H 18 118/76 93 L 05/27/19 00:05 36.6 C 97 18 131/73 95 Date Exam was Performed: 05/27/19 Time Exam was Performed: 17:58 - Problem List Review Problem List Initiated/Reviewed/Updated: Yes - My Orders Last 24 Hours: My Active Orders 05/27/19 08:05 OCCULT BLOOD DIAGNOSTIC [OP] Routine 05/27/19 10:30 Vancomycin [Vancocin] 1 gm Sodium Chloride 0.9% [Normal Saline (AdvBag)] 250 ml IV Q24H 05/27/19 Lunch Regular Diet [DIET] 05/28/19 05:11 CBC WITH AUTO DIFF [HEME] AM COMPREHENSIVE METABOLIC PN,CMP [CHEM] AM - Plan Plan:: A: 1. Parotitis 2. Hypernatremia 3. GI bleed, stable 4. acute on chronic kidney disease, improving 5. PMH COPD, Afib P: 1. Will continue with Vancomycin and switch to Flagyl. STEPHAN Zosyn. Stop maintenance fluids due to hypernatremia. Encourage PO intake. H/H stable. Recheck tomorrow. Dispo: 1-2 days
[2019-05-27] MEDS: metroNIDAZOLE/Normal Saline 500 MG in Premix Bag 1 BAG IV SCH ×2 (11:54→18:09)
[2019-05-28] MEDS: metroNIDAZOLE/Normal Saline 500 MG in Premix Bag 1 BAG IV SCH ×4 (00:19→17:55)
[2019-05-28] MEDS ORDERED: Albuterol/Ipratropium 3.0-0.5 MG/3 ML Neb Soln NEB PRN (00:53)
--- NOTE | 2019-05-28 01:35 | CR ---
INDICATION: Increased respiratory rate. COMPARISON: 05/25/2019. FINDINGS/IMPRESSION: Stable prominence of the heart suggesting mild cardiomegaly. Upper normal pulmonary vasculature. No lung consolidation or definite pleural effusions. Moderately large retrocardiac hiatal hernia. Tortuous and calcified aorta. No acute osseous findings. Dictated by Eulogio Tristan MD @ 05/28/2019 1:34:18 AM Dictated by: Eulogio Tristan MD @ 05/28/2019 01:34:46 (Electronically Signed)
[2019-05-28] MEDS: Levothyroxine 25 MCG Tab PO SCH (06:31)
[2019-05-28 06:57] LABS: CARBON DIOXIDE,CO2 29.9 mmol/L (21.0-32.0)
[2019-05-28] MEDS ORDERED: Dextrose 5% in Water 1,000 ML IV SCH (08:00)
[2019-05-28] MEDS ORDERED: Furosemide 40 MG/4 ML VIAL IVPUSH ONE ×2 (08:33→09:04)
[2019-05-28] MEDS: Sertraline 100 MG Tab PO SCH (09:43)
[2019-05-28] MEDS: DILTIAZEM HCL 120 MG PO SCH (09:43)
[2019-05-28] MEDS: Metoprolol Tartrate 50 MG Tab PO SCH ×2 (09:43→22:23)
[2019-05-28] MEDS: Pantoprazole 40 MG in Sodium Chloride 0.9% 10 ML IV SCH (11:45)
[2019-05-28] MEDS: methylPREDNISolone Sodium Succinate 40 MG/1 ML SDV IVPUSH SCH (11:51)
[2019-05-28] MEDS ORDERED: Ketorolac 30 MG/ML SDV IVPUSH PRN (13:07)
--- NOTE | 2019-05-28 13:08 | PCM.PN ---
- General Info Date of Service: 05/28/19 Subjective Update: placed on BiPAP overnight. Now, off on high flow at 5 L. O2 sats >90%. - Patient Data Vitals - Most Recent: Last Vital Signs Temp 36.8 C 05/28/19 07:00 Pulse 103 H 05/28/19 07:00 Resp 26 H 05/28/19 07:00 BP 143/62 H 05/28/19 07:00 Pulse Ox 99 05/28/19 07:00 Weight - Most Recent: 72.575 kg I&O - Last 24 Hours: Intake & Output 05/27/19 05/28/19 05/28/19 22:59 06:59 14:59 Intake Total 460 310 350 Output Total 0 Balance 460 310 350 Lab Results Last 24 Hours: Laboratory Results - last 24 hr 05/28/19 05/28/19 05/28/19 Range/Units 01:23 05:52 05:52 WBC 10.43 (4.0-11.0) K/uL RBC 3.96 L (4.30-5.90) M/uL Hgb 8.3 L (12.0-16.0) g/dL Hct 33.1 L (36.0-46.0) % MCV 83.6 (80.0-98.0) fL MCH 21.0 L (27.0-32.0) pg MCHC 25.1 L (31.0-37.0) g/dL RDW Std Deviation 58.6 (28.0-62.0) fl RDW Coeff of Nick 19 H (11.0-15.0) % Plt Count 249 (150-400) K/uL MPV 9.50 (7.40-12.00) fL Neut % (Auto) 83.5 H (48.0-80.0) % Lymph % (Auto) 6.4 L (16.0-40.0) % [place] % (Auto) 9.8 (0.0-15.0) % Eos % (Auto) 0.1 (0.0-7.0) % Baso % (Auto) 0.2 (0.0-1.5) % Neut # (Auto) 8.7 H (1.4-5.7) K/uL Lymph # (Auto) 0.7 (0.6-2.4) K/uL [place] # (Auto) 1.0 H (0.0-0.8) K/uL Eos # (Auto) 0.0 (0.0-0.7) K/uL Baso # (Auto) 0.0 (0.0-0.1) K/uL Nucleated RBC % 1.2 /100WBC Nucleated RBCs # 0 K/uL ABG pH 7.235 L (7.35-7.45) ABG pCO2 66 H (35-45) mmHG ABG pO2 112 H (75-100) mmHG ABG HCO3 28 H (22-26) mEq/L ABG Total CO2 27.4 ABG Base Excess -0.2 (-2.0-2.0) Sodium 152 H (136-145) mmol/L Potassium 4.0 (3.5-5.1) mmol/L Chloride 114 H (98-107) mmol/L Carbon Dioxide 29.9 (21.0-32.0) mmol/L BUN 16 (7.0-18.0) mg/dL Creatinine 1.0 (0.6-1.0) mg/dL Est Cr Clr Drug Dosing 34.32 mL/min Estimated GFR (MDRD) 52.2 ml/min Glucose 111 H (74-106) mg/dL Calcium 8.8 (8.5-10.1) mg/dL Total Bilirubin 0.5 (0.2-1.0) mg/dL AST 25 (15-37) IU/L ALT 37 (14-63) IU/L Alkaline Phosphatase 68 (46-116) U/L Total Protein 6.2 L (6.4-8.2) g/dL Albumin 2.4 L (3.4-5.0) g/dL Globulin 3.8 (2.6-4.0) g/dL Albumin/Globulin Ratio 0.6 L (0.9-1.6) Max Results Last 24 Hours: Microbiology 05/25/19 16:46 Aerobic Blood Culture - Preliminary Blood - Venous - Lab Draw NO GROWTH AFTER 2 DAYS Anaerobic Blood Culture - Preliminary NO GROWTH AFTER 2 DAYS 05/25/19 16:33 Aerobic Blood Culture - Preliminary Blood - Venous NO GROWTH AFTER 2 DAYS Anaerobic Blood Culture - Preliminary NO GROWTH AFTER 2 DAYS Med Orders - Current: Current Medications Acetaminophen (Tylenol) 650 mg PO Q4H PRN PRN Reason: Pain (Mild 1-3)/fever Albuterol/Ipratropium (Duoneb 3.0-0.5 Mg/3 Ml) 3 ml NEB Q6HR PRN PRN Reason: Shortness of Breath Last Admin: 05/28/19 01:06 Dose: 3 ml Diltiazem HCl (Cardizem Cd) 120 mg PO DAILY [facility] Last Admin: 05/28/19 09:43 Dose: Not Given Pantoprazole Sodium 40 mg/ (Sodium Chloride) 10 mls @ 300 mls/hr IV Q12H [facility] Last Admin: 05/28/19 11:45 Dose: 300 mls/hr Metronidazole 500 mg/ Premix 100 mls @ 100 mls/hr IV QID [facility] Last Admin: 05/28/19 11:48 Dose: 100 mls/hr Vancomycin HCl 1 gm/ Sodium (Chloride) 250 mls @ 250 mls/hr IV Q24H [facility] Last Admin: 05/28/19 10:01 Dose: 250 mls/hr Ketorolac Tromethamine (Toradol) 30 mg IVPUSH Q6H PRN PRN Reason: Pain Stop: 06/02/19 13:07 Levothyroxine Sodium (Levothyroxine) 25 mcg PO ACBREAKFAST [facility] Last Admin: 05/28/19 06:31 Dose: 25 mcg Methylprednisolone Sodium Succinate (Solu-Medrol) 40 mg IVPUSH Q12H [facility] Last Admin: 05/28/19 11:51 Dose: 40 mg Metoprolol Tartrate (Lopressor) 50 mg PO BID [facility] Last Admin: 05/28/19 09:43 Dose: Not Given Ondansetron HCl (Zofran) 4 mg IVPUSH Q4H PRN PRN Reason: Nausea Sertraline HCl (Zoloft) 100 mg PO DAILY [facility] Last Admin: 05/28/19 09:43 Dose: Not Given Vancomycin HCl (Pharmacy To Dose - Vancomycin) 1 dose .XX ASDIRECTED [facility] Discontinued Medications Albuterol/Ipratropium (Duoneb 3.0-0.5 Mg/3 Ml) 3 ml NEB ONETIME ONE Stop: 05/25/19 14:42 Last Admin: 05/25/19 14:55 Dose: 3 ml Furosemide (Lasix) 40 mg IVPUSH NOW ONE Stop: 05/28/19 08:34 Last Admin: 05/28/19 09:13 Dose: 40 mg Furosemide (Lasix) 40 mg IVPUSH NOW ONE Stop: 05/28/19 09:05 Sodium Chloride (Normal Saline) 500 mls @ 999 mls/hr IV .BOLUS [facility] Last Infusion: 05/25/19 21:00 Dose: Infused Sodium Chloride (Normal Saline) 1,000 mls @ 75 mls/hr IV ASDIRECTED [facility] Last Admin: 05/26/19 23:30 Dose: 125 mls/hr Piperacillin Sod/Tazobactam (Sod 2.25 gm/ Sodium Chloride) 50 mls @ 100 mls/hr IV Q6H [facility] Last Admin: 05/27/19 05:36 Dose: 100 mls/hr Metronidazole 500 mg/ Premix 100 mls @ 100 mls/hr IV QID [facility] Vancomycin HCl 1 gm/ Sodium (Chloride) 250 mls @ 250 mls/hr IV ONETIME ONE Stop: 05/26/19 10:59 Last Admin: 05/26/19 10:13 Dose: 250 mls/hr Lactated Ringer's (Ringers, Lactated) 1,000 mls @ 100 mls/hr IV ASDIRECTED [facility] Dextrose/Water (Dextrose 5% In Water) 1,000 mls @ 75 mls/hr IV ASDIRECTED [facility] Stop: 05/28/19 21:19 Levothyroxine Sodium (Levothyroxine) Confirm Administered Dose 25 mcg .ROUTE .STK-MED ONE Stop: 05/26/19 08:57 Last Admin: 05/26/19 09:58 Dose: Not Given Metoprolol Tartrate (Lopressor) Confirm Administered Dose 50 mg .ROUTE .STK-MED ONE Stop: 05/26/19 08:58 Last Admin: 05/26/19 09:58 Dose: Not Given Diltiazem Hcl [Dilt- (Xr] 120 Mg) 1 each PO DAILY [facility] Last Admin: 05/27/19 08:46 Dose: 1 each Sertraline HCl (Zoloft) Confirm Administered Dose 100 mg .ROUTE .STK-MED ONE Stop: 05/26/19 08:58 Last Admin: 05/26/19 09:58 Dose: Not Given - Exam General: No Acute Distress, Lethargic Lungs: Clear to Auscultation, Decreased Breath Sounds, Rhonchi Cardiovascular: Irregular Rhythm, Tachycardia GI/Abdominal Exam: Normal Bowel Sounds, Soft, Non-Tender Extremities: Normal Inspection, No Pedal Edema Sepsis Event Note - Evaluation Sepsis Screening Result: No Definite Risk - Focused Exam Vital Signs: Vital Signs Temp Pulse Resp BP Pulse Ox 05/28/19 07:00 36.8 C 103 H 26 H 143/62 H 99 05/28/19 06:00 107 H 19 98 05/28/19 05:00 101 H 28 H 97 05/28/19 04:00 99 24 H 131/77 97 05/28/19 03:38 36.8 C 105 H 23 H 167/83 H 97 05/28/19 03:00 103 H 29 H 96 05/28/19 02:15 101 H 20 97 05/28/19 02:00 107 H 35 H 96 05/28/19 01:50 38 H Date Exam was Performed: 05/28/19 Time Exam was Performed: 14:52 - Problem List Review Problem List Initiated/Reviewed/Updated: Yes - My Orders Last 24 Hours: My Active Orders 05/28/19 11:30 methylPREDNISolone Sod Succ [Solu-MEDROL] 40 mg IVPUSH Q12H 05/28/19 13:07 Ketorolac [Toradol] 30 mg IVPUSH Q6H PRN 05/29/19 05:11 BASIC METABOLIC PANEL,BMP [CHEM] AM CBC WITH AUTO DIFF [HEME] AM 05/30/19 05:11 BASIC METABOLIC PANEL,BMP [CHEM] AM CBC WITH AUTO DIFF [HEME] AM - Plan Plan:: A: 1. Acute on chronic hypercapnic respiratory failure 2. Parotitis 2. Hypernatremia 3. GI bleed, stable 4. acute on chronic kidney disease, improving 5. PMH COPD, Afib P: 1. Off BiPAP. Now on 5 L high flow. Gave her lasix 40 mg IV once. Spoke to family about patients poor prognosis due to her multiple comorbidities. Family at bedside waiting for other family members to arrive later today. For now will continue IV antibiotics and continue to monitor her respiratory status. Dispo: 1-2 days
[2019-05-28] MEDS ORDERED: Furosemide 20 MG/2 ML VIAL IVPUSH ONE (19:03)
[2019-05-29] MEDS: Pantoprazole 40 MG in Sodium Chloride 0.9% 10 ML IV SCH ×3 (00:13→22:47)
[2019-05-29] MEDS: methylPREDNISolone Sodium Succinate 40 MG/1 ML SDV IVPUSH SCH ×3 (00:13→22:38)
[2019-05-29] MEDS: metroNIDAZOLE/Normal Saline 500 MG in Premix Bag 1 BAG IV SCH ×4 (00:13→18:05)
[2019-05-29 06:56] LABS: CARBON DIOXIDE,CO2 34.9 mmol/L (21.0-32.0); POTASSIUM,K 3.9 mmol/L (3.5-5.1)
[2019-05-29] MEDS: Levothyroxine 25 MCG Tab PO SCH (08:16)
[2019-05-29] MEDS: Metoprolol Tartrate 50 MG Tab PO SCH ×2 (08:16→22:38)
[2019-05-29] MEDS: Sertraline 100 MG Tab PO SCH (08:17)
[2019-05-29] MEDS: DILTIAZEM HCL 120 MG PO SCH (08:17)
[2019-05-29] MEDS ORDERED: Furosemide 40 MG/4 ML VIAL IVPUSH ONE (08:39)
--- NOTE | 2019-05-29 08:39 | PCM.PN ---
- General Info Date of Service: 05/29/19 - Review of Systems Systems Review Comment:: feeling better, breathing has improved, pain around the parotid gland has improved. - Patient Data Vitals - Most Recent: Last Vital Signs Temp 36.1 C 05/29/19 07:31 Pulse 120 H 05/29/19 08:17 Resp 18 05/29/19 07:31 BP 155/80 H 05/29/19 08:17 Pulse Ox 99 05/29/19 07:31 Weight - Most Recent: 72.575 kg I&O - Last 24 Hours: Intake & Output 05/28/19 05/29/19 05/29/19 22:59 06:59 14:59 Intake Total 660 Balance 660 Lab Results Last 24 Hours: Laboratory Results - last 24 hr 05/29/19 05/29/19 Range/Units 06:10 06:10 WBC 7.96 (4.0-11.0) K/uL RBC 4.28 L (4.30-5.90) M/uL Hgb 8.8 L (12.0-16.0) g/dL Hct 35.0 L (36.0-46.0) % MCV 81.8 (80.0-98.0) fL MCH 20.6 L (27.0-32.0) pg MCHC 25.1 L (31.0-37.0) g/dL RDW Std Deviation 55.8 (28.0-62.0) fl RDW Coeff of Nick 19 H (11.0-15.0) % Plt Count 278 (150-400) K/uL MPV 9.70 (7.40-12.00) fL Neut % (Auto) 93.9 H (48.0-80.0) % Lymph % (Auto) 3.6 L (16.0-40.0) % [place] % (Auto) 2.5 (0.0-15.0) % Eos % (Auto) 0.0 (0.0-7.0) % Baso % (Auto) 0.0 (0.0-1.5) % Neut # (Auto) 7.5 H (1.4-5.7) K/uL Lymph # (Auto) 0.3 L (0.6-2.4) K/uL [place] # (Auto) 0.2 (0.0-0.8) K/uL Eos # (Auto) 0.0 (0.0-0.7) K/uL Baso # (Auto) 0.0 (0.0-0.1) K/uL Nucleated RBC % 1.1 /100WBC Nucleated RBCs # 0 K/uL Sodium 151 H (136-145) mmol/L Potassium 3.9 (3.5-5.1) mmol/L Chloride 111 H (98-107) mmol/L Carbon Dioxide 34.9 H (21.0-32.0) mmol/L BUN 17 (7.0-18.0) mg/dL Creatinine 1.2 H (0.6-1.0) mg/dL Est Cr Clr Drug Dosing 28.60 mL/min Estimated GFR (MDRD) 42.3 ml/min Glucose 171 H (74-106) mg/dL Calcium 8.2 L (8.5-10.1) mg/dL Max Results Last 24 Hours: Microbiology 05/25/19 16:46 Aerobic Blood Culture - Preliminary Blood - Venous - Lab Draw NO GROWTH AFTER 3 DAYS Anaerobic Blood Culture - Preliminary NO GROWTH AFTER 3 DAYS 05/25/19 16:33 Aerobic Blood Culture - Preliminary Blood - Venous NO GROWTH AFTER 3 DAYS Anaerobic Blood Culture - Preliminary NO GROWTH AFTER 3 DAYS Med Orders - Current: Current Medications Acetaminophen (Tylenol) 650 mg PO Q4H PRN PRN Reason: Pain (Mild 1-3)/fever Albuterol/Ipratropium (Duoneb 3.0-0.5 Mg/3 Ml) 3 ml NEB Q6HR PRN PRN Reason: Shortness of Breath Last Admin: 05/28/19 01:06 Dose: 3 ml Diltiazem HCl (Cardizem Cd) 120 mg PO DAILY [facility] Last Admin: 05/29/19 08:17 Dose: 120 mg Pantoprazole Sodium 40 mg/ (Sodium Chloride) 10 mls @ 300 mls/hr IV Q12H [facility] Last Admin: 05/29/19 00:13 Dose: 300 mls/hr Metronidazole 500 mg/ Premix 100 mls @ 100 mls/hr IV QID [facility] Last Admin: 05/29/19 06:28 Dose: 100 mls/hr Vancomycin HCl 1 gm/ Sodium (Chloride) 250 mls @ 250 mls/hr IV Q24H [facility] Last Admin: 05/28/19 10:01 Dose: 250 mls/hr Ketorolac Tromethamine (Toradol) 30 mg IVPUSH Q6H PRN PRN Reason: Pain Stop: 06/02/19 13:07 Last Admin: 05/28/19 13:13 Dose: 30 mg Levothyroxine Sodium (Levothyroxine) 25 mcg PO ACBREAKFAST [facility] Last Admin: 05/29/19 08:16 Dose: 25 mcg Methylprednisolone Sodium Succinate (Solu-Medrol) 40 mg IVPUSH Q12H [facility] Last Admin: 05/29/19 00:13 Dose: 40 mg Metoprolol Tartrate (Lopressor) 50 mg PO BID [facility] Last Admin: 05/29/19 08:16 Dose: 50 mg Ondansetron HCl (Zofran) 4 mg IVPUSH Q4H PRN PRN Reason: Nausea Sertraline HCl (Zoloft) 100 mg PO DAILY [facility] Last Admin: 05/29/19 08:17 Dose: 100 mg Vancomycin HCl (Pharmacy To Dose - Vancomycin) 1 dose .XX ASDIRECTED [facility] Discontinued Medications Albuterol/Ipratropium (Duoneb 3.0-0.5 Mg/3 Ml) 3 ml NEB ONETIME ONE Stop: 05/25/19 14:42 Last Admin: 05/25/19 14:55 Dose: 3 ml Furosemide (Lasix) 40 mg IVPUSH NOW ONE Stop: 05/28/19 08:34 Last Admin: 05/28/19 09:13 Dose: 40 mg Furosemide (Lasix) 40 mg IVPUSH NOW ONE Stop: 05/28/19 09:05 Furosemide (Lasix) 20 mg IVPUSH NOW ONE Stop: 05/28/19 19:04 Last Admin: 05/28/19 22:24 Dose: 20 mg Sodium Chloride (Normal Saline) 500 mls @ 999 mls/hr IV .BOLUS [facility] Last Infusion: 05/25/19 21:00 Dose: Infused Sodium Chloride (Normal Saline) 1,000 mls @ 75 mls/hr IV ASDIRECTED [facility] Last Admin: 05/26/19 23:30 Dose: 125 mls/hr Piperacillin Sod/Tazobactam (Sod 2.25 gm/ Sodium Chloride) 50 mls @ 100 mls/hr IV Q6H [facility] Last Admin: 05/27/19 05:36 Dose: 100 mls/hr Metronidazole 500 mg/ Premix 100 mls @ 100 mls/hr IV QID [facility] Vancomycin HCl 1 gm/ Sodium (Chloride) 250 mls @ 250 mls/hr IV ONETIME ONE Stop: 05/26/19 10:59 Last Admin: 05/26/19 10:13 Dose: 250 mls/hr Lactated Ringer's (Ringers, Lactated) 1,000 mls @ 100 mls/hr IV ASDIRECTED [facility] Dextrose/Water (Dextrose 5% In Water) 1,000 mls @ 75 mls/hr IV ASDIRECTED [facility] Stop: 05/28/19 21:19 Levothyroxine Sodium (Levothyroxine) Confirm Administered Dose 25 mcg .ROUTE .STK-MED ONE Stop: 05/26/19 08:57 Last Admin: 05/26/19 09:58 Dose: Not Given Metoprolol Tartrate (Lopressor) Confirm Administered Dose 50 mg .ROUTE .STK-MED ONE Stop: 05/26/19 08:58 Last Admin: 05/26/19 09:58 Dose: Not Given Diltiazem Hcl [Dilt- (Xr] 120 Mg) 1 each PO DAILY [facility] Last Admin: 05/27/19 08:46 Dose: 1 each Sertraline HCl (Zoloft) Confirm Administered Dose 100 mg .ROUTE .STK-MED ONE Stop: 05/26/19 08:58 Last Admin: 05/26/19 09:58 Dose: Not Given - Exam General: Cooperative, No Acute Distress HEENT: Other (no erythema, or edema about the parotid glands) Neck: Supple Lungs: Clear to Auscultation, Normal Respiratory Effort, Decreased Breath Sounds Cardiovascular: Regular Rate, Regular Rhythm Extremities: Non-Tender, No Pedal Edema Skin: Warm, Dry, Intact Neurological: No New Focal Deficit Sepsis Event Note - Evaluation Sepsis Screening Result: No Definite Risk - Focused Exam Vital Signs: Vital Signs Temp Pulse Pulse Resp BP BP Pulse Ox 05/29/19 08:17 120 H 155/80 H 05/29/19 08:16 120 H 155/80 H 05/29/19 07:31 36.1 C 120 H 18 155/80 H 99 05/29/19 04:00 36.4 C 95 16 172/86 H 98 05/28/19 23:00 05/28/19 22:23 131 H 144/86 H Pulse Ox 05/29/19 08:17 05/29/19 08:16 05/29/19 07:31 05/29/19 04:00 05/28/19 23:00 90 L 05/28/19 22:23 Date Exam was Performed: 05/29/19 Time Exam was Performed: 08:33 - Problem List Review Problem List Initiated/Reviewed/Updated: Yes - My Orders Last 24 Hours: My Active Orders 05/30/19 05:11 Echo 2D wo Cont [US] AM - Plan Plan:: 88 yo female who presented with abdominal pain, found to have parotitis, GI bleed, and developed worsening respiratory failure likely 2/2 to COPD and pulmonary edema. Parotitis: continue vancomycin and flagyl Hypernatremia: 151 today GI bleed: stable continue PPI COPD: on prednisone, duonebs, has been weened off BIPAP, will continue to wean supplemental oxygen as tolerated CHF: will get echocardiogram, will give another dose of lasix today A.fib: continue rate controlling medications, holding anticoagulation due to GI bleed Dispo: 1-2 days
[2019-05-29] MEDS ORDERED: predniSONE 10 MG Tab PO SCH (08:45)
[2019-05-29] MEDS: predniSONE 20 MG Tab PO SCH (14:56)
[2019-05-30] MEDS: metroNIDAZOLE/Normal Saline 500 MG in Premix Bag 1 BAG IV SCH ×5 (01:45→23:34)
[2019-05-30 06:02] LABS: CARBON DIOXIDE,CO2 35.1 mmol/L (21.0-32.0); POTASSIUM,K 3.7 mmol/L (3.5-5.1)
[2019-05-30] MEDS: Levothyroxine 25 MCG Tab PO SCH (07:49)
[2019-05-30] MEDS: DILTIAZEM HCL 120 MG PO SCH (08:33)
[2019-05-30] MEDS: Furosemide 40 MG Tab PO SCH (08:33)
[2019-05-30] MEDS: Sertraline 100 MG Tab PO SCH (08:33)
[2019-05-30] MEDS: Metoprolol Tartrate 50 MG Tab PO SCH ×2 (08:34→21:01)
[2019-05-30] MEDS: predniSONE 20 MG Tab PO SCH (08:34)
[2019-05-30] MEDS ORDERED: methylPREDNISolone Sodium Succinate 40 MG/1 ML SDV IVPUSH SCH (09:00)
[2019-05-30] MEDS: Pantoprazole 40 MG in Sodium Chloride 0.9% 10 ML IV SCH ×2 (10:46→23:25)
[2019-05-30] MEDS ORDERED: Polyethylene Glycol 3350 Powder 17 GM Packet PO PRN (11:03)
[2019-05-30] MEDS ORDERED: Docusate Sodium 100 MG Cap PO PRN (11:03)
--- NOTE | 2019-05-30 11:06 | PCM.PN ---
- General Info Date of Service: 05/30/19 Subjective Update: No acute events overnight. On 3L NC. Feels better this morning. More alert and drinking soda. No bowel movement since admission. - Patient Data Vitals - Most Recent: Last Vital Signs Temp 36.4 C 05/30/19 07:46 Pulse 122 H 05/30/19 08:34 Resp 20 05/30/19 07:46 BP 152/68 H 05/30/19 08:34 Pulse Ox 97 05/30/19 07:46 Weight - Most Recent: 72.575 kg I&O - Last 24 Hours: Intake & Output 05/29/19 05/30/19 05/30/19 22:59 06:59 14:59 Intake Total 600 480 Balance 600 480 Lab Results Last 24 Hours: Laboratory Results - last 24 hr 05/30/19 05/30/19 Range/Units 05:00 05:00 WBC 10.22 (4.0-11.0) K/uL RBC 4.31 (4.30-5.90) M/uL Hgb 9.0 L (12.0-16.0) g/dL Hct 35.5 L (36.0-46.0) % MCV 82.4 (80.0-98.0) fL MCH 20.9 L (27.0-32.0) pg MCHC 25.4 L (31.0-37.0) g/dL RDW Std Deviation 56.8 (28.0-62.0) fl RDW Coeff of Nick 19 H (11.0-15.0) % Plt Count 327 (150-400) K/uL MPV 9.90 (7.40-12.00) fL Neut % (Auto) 91.1 H (48.0-80.0) % Lymph % (Auto) 4.0 L (16.0-40.0) % [place] % (Auto) 4.8 (0.0-15.0) % Eos % (Auto) 0.0 (0.0-7.0) % Baso % (Auto) 0.1 (0.0-1.5) % Neut # (Auto) 9.3 H (1.4-5.7) K/uL Lymph # (Auto) 0.4 L (0.6-2.4) K/uL [place] # (Auto) 0.5 (0.0-0.8) K/uL Eos # (Auto) 0.0 (0.0-0.7) K/uL Baso # (Auto) 0.0 (0.0-0.1) K/uL Nucleated RBC % 0.8 /100WBC Nucleated RBCs # 0 K/uL Sodium 149 H (136-145) mmol/L Potassium 3.7 (3.5-5.1) mmol/L Chloride 110 H (98-107) mmol/L Carbon Dioxide 35.1 H (21.0-32.0) mmol/L BUN 19 H (7.0-18.0) mg/dL Creatinine 1.1 H (0.6-1.0) mg/dL Est Cr Clr Drug Dosing 31.20 mL/min Estimated GFR (MDRD) 46.8 ml/min Glucose 191 H (74-106) mg/dL Calcium 8.5 (8.5-10.1) mg/dL Max Results Last 24 Hours: Microbiology 05/25/19 16:46 Aerobic Blood Culture - Preliminary Blood - Venous - Lab Draw NO GROWTH AFTER 4 DAYS Anaerobic Blood Culture - Preliminary NO GROWTH AFTER 4 DAYS 05/25/19 16:33 Aerobic Blood Culture - Preliminary Blood - Venous NO GROWTH AFTER 4 DAYS Anaerobic Blood Culture - Preliminary NO GROWTH AFTER 4 DAYS Med Orders - Current: Current Medications Acetaminophen (Tylenol) 650 mg PO Q4H PRN PRN Reason: Pain (Mild 1-3)/fever Albuterol/Ipratropium (Duoneb 3.0-0.5 Mg/3 Ml) 3 ml NEB Q6HR PRN PRN Reason: Shortness of Breath Last Admin: 05/28/19 01:06 Dose: 3 ml Diltiazem HCl (Cardizem Cd) 120 mg PO DAILY [facility] Last Admin: 05/30/19 08:33 Dose: 120 mg Docusate Sodium (Colace) 100 mg PO BID PRN PRN Reason: Constipation Furosemide (Lasix) 40 mg PO DAILY [facility] Last Admin: 05/30/19 08:33 Dose: 40 mg Pantoprazole Sodium 40 mg/ (Sodium Chloride) 10 mls @ 300 mls/hr IV Q12H [facility] Last Admin: 05/30/19 10:46 Dose: 300 mls/hr Metronidazole 500 mg/ Premix 100 mls @ 100 mls/hr IV QID [facility] Last Admin: 05/30/19 07:49 Dose: 100 mls/hr Vancomycin HCl 1 gm/ Sodium (Chloride) 250 mls @ 250 mls/hr IV Q24H [facility] Last Admin: 05/30/19 10:44 Dose: 250 mls/hr Levothyroxine Sodium (Levothyroxine) 25 mcg PO ACBREAKFAST [facility] Last Admin: 05/30/19 07:49 Dose: 25 mcg Metoprolol Tartrate (Lopressor) 50 mg PO BID [facility] Last Admin: 05/30/19 08:34 Dose: 50 mg Nystatin (Nystop) 1 gm TOP TID [facility] Ondansetron HCl (Zofran) 4 mg IVPUSH Q4H PRN PRN Reason: Nausea Polyethylene Glycol (Miralax) 17 gm PO TID PRN PRN Reason: Constipation Prednisone (Prednisone) 40 mg PO DAILY [facility] Last Admin: 05/30/19 08:34 Dose: 40 mg Sertraline HCl (Zoloft) 100 mg PO DAILY [facility] Last Admin: 05/30/19 08:33 Dose: 100 mg Vancomycin HCl (Pharmacy To Dose - Vancomycin) 1 dose .XX ASDIRECTED [facility] Discontinued Medications Albuterol/Ipratropium (Duoneb 3.0-0.5 Mg/3 Ml) 3 ml NEB ONETIME ONE Stop: 05/25/19 14:42 Last Admin: 05/25/19 14:55 Dose: 3 ml Furosemide (Lasix) 40 mg IVPUSH NOW ONE Stop: 05/28/19 08:34 Last Admin: 05/28/19 09:13 Dose: 40 mg Furosemide (Lasix) 40 mg IVPUSH NOW ONE Stop: 05/28/19 09:05 Furosemide (Lasix) 20 mg IVPUSH NOW ONE Stop: 05/28/19 19:04 Last Admin: 05/28/19 22:24 Dose: 20 mg Furosemide (Lasix) 40 mg IVPUSH NOW ONE Stop: 05/29/19 08:40 Last Admin: 05/29/19 09:10 Dose: 40 mg Sodium Chloride (Normal Saline) 500 mls @ 999 mls/hr IV .BOLUS [facility] Last Infusion: 05/25/19 21:00 Dose: Infused Sodium Chloride (Normal Saline) 1,000 mls @ 75 mls/hr IV ASDIRECTED [facility] Last Admin: 05/26/19 23:30 Dose: 125 mls/hr Piperacillin Sod/Tazobactam (Sod 2.25 gm/ Sodium Chloride) 50 mls @ 100 mls/hr IV Q6H [facility] Last Admin: 05/27/19 05:36 Dose: 100 mls/hr Metronidazole 500 mg/ Premix 100 mls @ 100 mls/hr IV QID [facility] Vancomycin HCl 1 gm/ Sodium (Chloride) 250 mls @ 250 mls/hr IV ONETIME ONE Stop: 05/26/19 10:59 Last Admin: 05/26/19 10:13 Dose: 250 mls/hr Lactated Ringer's (Ringers, Lactated) 1,000 mls @ 100 mls/hr IV ASDIRECTED [facility] Dextrose/Water (Dextrose 5% In Water) 1,000 mls @ 75 mls/hr IV ASDIRECTED [facility] Stop: 05/28/19 21:19 Ketorolac Tromethamine (Toradol) 30 mg IVPUSH Q6H PRN PRN Reason: Pain Stop: 06/02/19 13:07 Last Admin: 05/28/19 13:13 Dose: 30 mg Levothyroxine Sodium (Levothyroxine) Confirm Administered Dose 25 mcg .ROUTE .STK-MED ONE Stop: 05/26/19 08:57 Last Admin: 05/26/19 09:58 Dose: Not Given Methylprednisolone Sodium Succinate (Solu-Medrol) 40 mg IVPUSH Q12H [facility] Last Admin: 05/29/19 22:38 Dose: 40 mg Methylprednisolone Sodium Succinate (Solu-Medrol) 40 mg IVPUSH DAILY [facility] Metoprolol Tartrate (Lopressor) Confirm Administered Dose 50 mg .ROUTE .STK-MED ONE Stop: 05/26/19 08:58 Last Admin: 05/26/19 09:58 Dose: Not Given Diltiazem Hcl [Dilt- (Xr] 120 Mg) 1 each PO DAILY [facility] Last Admin: 05/27/19 08:46 Dose: 1 each Prednisone (Prednisone) 40 mg PO .Daily Taper [facility] Sertraline HCl (Zoloft) Confirm Administered Dose 100 mg .ROUTE .STK-MED ONE Stop: 05/26/19 08:58 Last Admin: 05/26/19 09:58 Dose: Not Given - Exam Quality Assessment: Supplemental Oxygen General: Alert, Oriented, Cooperative, No Acute Distress HEENT: Other (Right parotitis much improved. no swelling, erythema. ) Lungs: Clear to Auscultation, Normal Respiratory Effort, Rhonchi. No: Crackles , Wheezing Cardiovascular: Irregular Rhythm, Tachycardia GI/Abdominal Exam: Normal Bowel Sounds, Soft, Non-Tender Extremities: Normal Inspection, No Pedal Edema Sepsis Event Note - Evaluation Sepsis Screening Result: No Definite Risk - Focused Exam Vital Signs: Vital Signs Temp Pulse Pulse Resp BP BP Pulse Ox 05/30/19 08:34 122 H 152/68 H 05/30/19 08:33 109 H 152/68 H 05/30/19 07:46 36.4 C 96 20 136/62 97 05/30/19 05:00 05/30/19 03:48 36.3 C 107 H 18 123/56 L 93 L 05/30/19 00:00 114 H 99 Pulse Ox 05/30/19 08:34 05/30/19 08:33 05/30/19 07:46 05/30/19 05:00 98 05/30/19 03:48 05/30/19 00:00 Date Exam was Performed: 05/30/19 Time Exam was Performed: 14:21 - Problem List Review Problem List Initiated/Reviewed/Updated: Yes - My Orders Last 24 Hours: My Active Orders 05/30/19 08:17 Consult to Physical Therapy [PT Evaluation and Treatment] [CONS] Routine 05/30/19 09:00 Furosemide [Lasix] 40 mg PO DAILY 05/30/19 11:03 Docusate Sodium [Colace] 100 mg PO BID PRN polyethylene glycoL 3350 [MiraLAX] 17 gm PO TID PRN 05/31/19 05:11 BASIC METABOLIC PANEL,BMP [CHEM] AM CBC WITH AUTO DIFF [HEME] AM 06/01/19 05:11 BASIC METABOLIC PANEL,BMP [CHEM] AM CBC WITH AUTO DIFF [HEME] AM - Plan Plan:: A: 1. Parotitis 2. COPD exacerbation 3. GI bleed 4. Atrial fibrillation 5. Candidiasis 6. Deconditioning P: 1. Improving. Titrate O2 as tolerated. Pending Echo results. Continue lasix 40 mg PO daily. Encourage PO hydration. PT involved for deconditioning. Continue Vancomycin and Flagyl. Will switch to PO Augmentin tomorrow. Plan to DC to [facility] for further physical therapy.
[2019-05-30] MEDS: Nystatin Topical Powder 15 GM Bottle TOP SCH ×2 (15:19→21:09)
[2019-05-30] MEDS ORDERED: Magnesium Hydroxide 400 MG/5 ML Susp 30 ML Cup PO PRN (18:51)
[2019-05-30] MEDS ORDERED: Sennosides 8.6 MG Tab PO PRN (18:52)
[2019-05-31] MEDS: metroNIDAZOLE/Normal Saline 500 MG in Premix Bag 1 BAG IV SCH ×3 (06:44→18:06)
[2019-05-31] MEDS: Nystatin Topical Powder 15 GM Bottle TOP SCH ×3 (06:46→22:38)
[2019-05-31 06:47] LABS: CARBON DIOXIDE,CO2 39.4 mmol/L (21.0-32.0); POTASSIUM,K 3.5 mmol/L (3.5-5.1)
[2019-05-31] MEDS: Levothyroxine 25 MCG Tab PO SCH (06:50)
[2019-05-31] MEDS: Potassium Chloride 20 MEQ Tab.ER PO ONE ×2 (09:04→13:12)
[2019-05-31] MEDS: Metoprolol Tartrate 50 MG Tab PO SCH ×2 (09:04→13:12)
[2019-05-31] MEDS: predniSONE 20 MG Tab PO SCH ×2 (09:09→13:12)
[2019-05-31] MEDS: DILTIAZEM HCL 120 MG PO SCH ×2 (09:10→13:12)
[2019-05-31] MEDS: Furosemide 40 MG Tab PO SCH ×2 (09:10→13:12)
[2019-05-31] MEDS: Sertraline 100 MG Tab PO SCH ×2 (09:10→13:12)
--- NOTE | 2019-05-31 10:12 | CR ---
Chest: Portable view of the chest was obtained. Comparison: Prior chest x-ray of 05/28/19. Heart is enlarged. Coronary artery calcification is noted. Atherosclerotic calcification is noted within a tortuous thoracic aorta. Lungs show no acute parenchymal change. Scattered disc space narrowing is noted within the spine with osteopenia. Impression: 1. Mild cardiomegaly with coronary artery calcification. 2. Other findings as noted above. 3. Nothing acute is appreciated. Diagnostic code #2 This report was dictated in [place] Standard Time
--- NOTE | 2019-05-31 11:03 | PCM.PN ---
- General Info Date of Service: 05/31/19 Subjective Update: Had large BM last night. Family states she was awake all night speaking with them. However, this morning when I evaluated the patient, she was more lethargic and not opening her eyes. ABG showed hypercapnia 69. Soon after, she was awake and alert. - Patient Data Vitals - Most Recent: Last Vital Signs Temp 36.4 C 05/31/19 07:20 Pulse 104 H 05/31/19 07:20 Resp 20 05/31/19 07:20 BP 150/71 H 05/31/19 07:20 Pulse Ox 93 L 05/31/19 07:20 Weight - Most Recent: 72.575 kg I&O - Last 24 Hours: Intake & Output 05/30/19 05/31/19 05/31/19 22:59 06:59 14:59 Intake Total 640 200 Output Total 500 Balance 640 -300 Lab Results Last 24 Hours: Laboratory Results - last 24 hr 05/31/19 05/31/19 05/31/19 Range/Units 06:19 06:19 06:19 WBC 14.70 H (4.0-11.0) K/uL RBC 4.36 (4.30-5.90) M/uL Hgb 9.2 L (12.0-16.0) g/dL Hct 36.2 (36.0-46.0) % MCV 83.0 (80.0-98.0) fL MCH 21.1 L (27.0-32.0) pg MCHC 25.4 L (31.0-37.0) g/dL RDW Std Deviation 57.0 (28.0-62.0) fl RDW Coeff of Nick 19 H (11.0-15.0) % Plt Count 284 (150-400) K/uL MPV 9.60 (7.40-12.00) fL Neut % (Auto) 83.8 H (48.0-80.0) % Lymph % (Auto) 4.6 L (16.0-40.0) % Cochran % (Auto) 11.4 (0.0-15.0) % Eos % (Auto) 0.1 (0.0-7.0) % Baso % (Auto) 0.1 (0.0-1.5) % Neut # (Auto) 12.3 H (1.4-5.7) K/uL Lymph # (Auto) 0.7 (0.6-2.4) K/uL Cochran # (Auto) 1.7 H (0.0-0.8) K/uL Eos # (Auto) 0.0 (0.0-0.7) K/uL Baso # (Auto) 0.0 (0.0-0.1) K/uL Nucleated RBC % 0.3 /100WBC Nucleated RBCs # 0 K/uL ABG pH (7.35-7.45) ABG pCO2 (35-45) mmHG ABG pO2 (75-100) mmHG ABG HCO3 (22-26) mEq/L ABG Total CO2 ABG Base Excess (-2.0-2.0) Sodium 150 H (136-145) mmol/L Potassium 3.5 (3.5-5.1) mmol/L Chloride 111 H (98-107) mmol/L Carbon Dioxide 39.4 H (21.0-32.0) mmol/L BUN 18 (7.0-18.0) mg/dL Creatinine 1.1 H (0.6-1.0) mg/dL Est Cr Clr Drug Dosing 31.20 mL/min Estimated GFR (MDRD) 46.8 ml/min Glucose 133 H (74-106) mg/dL Calcium 8.4 L (8.5-10.1) mg/dL Magnesium 2.0 (1.8-2.4) mg/dL 05/31/19 Range/Units 09:25 WBC (4.0-11.0) K/uL RBC (4.30-5.90) M/uL Hgb (12.0-16.0) g/dL Hct (36.0-46.0) % MCV (80.0-98.0) fL MCH (27.0-32.0) pg MCHC (31.0-37.0) g/dL RDW Std Deviation (28.0-62.0) fl RDW Coeff of Nick (11.0-15.0) % Plt Count (150-400) K/uL MPV (7.40-12.00) fL Neut % (Auto) (48.0-80.0) % Lymph % (Auto) (16.0-40.0) % Cochran % (Auto) (0.0-15.0) % Eos % (Auto) (0.0-7.0) % Baso % (Auto) (0.0-1.5) % Neut # (Auto) (1.4-5.7) K/uL Lymph # (Auto) (0.6-2.4) K/uL Cochran # (Auto) (0.0-0.8) K/uL Eos # (Auto) (0.0-0.7) K/uL Baso # (Auto) (0.0-0.1) K/uL Nucleated RBC % /100WBC Nucleated RBCs # K/uL ABG pH 7.389 (7.35-7.45) ABG pCO2 69 H (35-45) mmHG ABG pO2 58 L (75-100) mmHG ABG HCO3 42 H (22-26) mEq/L ABG Total CO2 39.5 ABG Base Excess 14.5 H (-2.0-2.0) Sodium (136-145) mmol/L Potassium (3.5-5.1) mmol/L Chloride (98-107) mmol/L Carbon Dioxide (21.0-32.0) mmol/L BUN (7.0-18.0) mg/dL Creatinine (0.6-1.0) mg/dL Est Cr Clr Drug Dosing mL/min Estimated GFR (MDRD) ml/min Glucose (74-106) mg/dL Calcium (8.5-10.1) mg/dL Magnesium (1.8-2.4) mg/dL Max Results Last 24 Hours: Microbiology 05/25/19 16:46 Aerobic Blood Culture - Final Blood - Venous - Lab Draw NO GROWTH AFTER 5 DAYS Anaerobic Blood Culture - Final NO GROWTH AFTER 5 DAYS 05/25/19 16:33 Aerobic Blood Culture - Final Blood - Venous NO GROWTH AFTER 5 DAYS Anaerobic Blood Culture - Final NO GROWTH AFTER 5 DAYS Med Orders - Current: Current Medications Acetaminophen (Tylenol) 650 mg PO Q4H PRN PRN Reason: Pain (Mild 1-3)/fever Albuterol/Ipratropium (Duoneb 3.0-0.5 Mg/3 Ml) 3 ml NEB Q6HR PRN PRN Reason: Shortness of Breath Last Admin: 05/28/19 01:06 Dose: 3 ml Diltiazem HCl (Cardizem Cd) 120 mg PO DAILY [facility] Last Admin: 05/30/19 08:33 Dose: 120 mg Docusate Sodium (Colace) 100 mg PO BID PRN PRN Reason: Constipation Furosemide (Lasix) 40 mg PO DAILY [facility] Last Admin: 05/30/19 08:33 Dose: 40 mg Pantoprazole Sodium 40 mg/ (Sodium Chloride) 10 mls @ 300 mls/hr IV Q12H [facility] Last Admin: 05/30/19 23:25 Dose: 300 mls/hr Metronidazole 500 mg/ Premix 100 mls @ 100 mls/hr IV QID [facility] Last Admin: 05/31/19 06:44 Dose: 100 mls/hr Vancomycin HCl 1 gm/ Sodium (Chloride) 250 mls @ 250 mls/hr IV Q24H [facility] Last Infusion: 05/30/19 11:44 Dose: Infused Levothyroxine Sodium (Levothyroxine) 25 mcg PO ACBREAKFAST [facility] Last Admin: 05/31/19 06:50 Dose: 25 mcg Magnesium Hydroxide (Milk Of Magnesia) 30 ml PO DAILY PRN PRN Reason: Constipation Last Admin: 05/30/19 21:01 Dose: 30 ml Metoprolol Tartrate (Lopressor) 50 mg PO BID [facility] Last Admin: 05/30/19 21:01 Dose: 50 mg Nystatin (Nystop) 1 gm TOP TID [facility] Last Admin: 05/31/19 06:46 Dose: 1 gm Ondansetron HCl (Zofran) 4 mg IVPUSH Q4H PRN PRN Reason: Nausea Polyethylene Glycol (Miralax) 17 gm PO TID PRN PRN Reason: Constipation Last Admin: 05/30/19 15:22 Dose: 17 gm Prednisone (Prednisone) 40 mg PO DAILY [facility] Last Admin: 05/30/19 08:34 Dose: 40 mg Senna (Senna) 8.6 mg PO DAILY PRN PRN Reason: Constipation Last Admin: 05/30/19 21:01 Dose: 8.6 mg Sertraline HCl (Zoloft) 100 mg PO DAILY [facility] Last Admin: 05/30/19 08:33 Dose: 100 mg Vancomycin HCl (Pharmacy To Dose - Vancomycin) 1 dose .XX ASDIRECTED [facility] Discontinued Medications Albuterol/Ipratropium (Duoneb 3.0-0.5 Mg/3 Ml) 3 ml NEB ONETIME ONE Stop: 05/25/19 14:42 Last Admin: 05/25/19 14:55 Dose: 3 ml Furosemide (Lasix) 40 mg IVPUSH NOW ONE Stop: 05/28/19 08:34 Last Admin: 05/28/19 09:13 Dose: 40 mg Furosemide (Lasix) 40 mg IVPUSH NOW ONE Stop: 05/28/19 09:05 Furosemide (Lasix) 20 mg IVPUSH NOW ONE Stop: 05/28/19 19:04 Last Admin: 05/28/19 22:24 Dose: 20 mg Furosemide (Lasix) 40 mg IVPUSH NOW ONE Stop: 05/29/19 08:40 Last Admin: 05/29/19 09:10 Dose: 40 mg Sodium Chloride (Normal Saline) 500 mls @ 999 mls/hr IV .BOLUS [facility] Last Infusion: 05/25/19 21:00 Dose: Infused Sodium Chloride (Normal Saline) 1,000 mls @ 75 mls/hr IV ASDIRECTED [facility] Last Admin: 05/26/19 23:30 Dose: 125 mls/hr Piperacillin Sod/Tazobactam (Sod 2.25 gm/ Sodium Chloride) 50 mls @ 100 mls/hr IV Q6H [facility] Last Admin: 05/27/19 05:36 Dose: 100 mls/hr Metronidazole 500 mg/ Premix 100 mls @ 100 mls/hr IV QID [facility] Vancomycin HCl 1 gm/ Sodium (Chloride) 250 mls @ 250 mls/hr IV ONETIME ONE Stop: 05/26/19 10:59 Last Admin: 05/26/19 10:13 Dose: 250 mls/hr Lactated Ringer's (Ringers, Lactated) 1,000 mls @ 100 mls/hr IV ASDIRECTED [facility] Dextrose/Water (Dextrose 5% In Water) 1,000 mls @ 75 mls/hr IV ASDIRECTED [facility] Stop: 05/28/19 21:19 Ketorolac Tromethamine (Toradol) 30 mg IVPUSH Q6H PRN PRN Reason: Pain Stop: 06/02/19 13:07 Last Admin: 05/28/19 13:13 Dose: 30 mg Levothyroxine Sodium (Levothyroxine) Confirm Administered Dose 25 mcg .ROUTE .STK-MED ONE Stop: 05/26/19 08:57 Last Admin: 05/26/19 09:58 Dose: Not Given Methylprednisolone Sodium Succinate (Solu-Medrol) 40 mg IVPUSH Q12H [facility] Last Admin: 05/29/19 22:38 Dose: 40 mg Methylprednisolone Sodium Succinate (Solu-Medrol) 40 mg IVPUSH DAILY [facility] Metoprolol Tartrate (Lopressor) Confirm Administered Dose 50 mg .ROUTE .STK-MED ONE Stop: 05/26/19 08:58 Last Admin: 05/26/19 09:58 Dose: Not Given Diltiazem Hcl [Dilt- (Xr] 120 Mg) 1 each PO DAILY [facility] Last Admin: 05/27/19 08:46 Dose: 1 each Potassium Chloride (Klor-Con M20) 40 meq PO ONETIME ONE Stop: 05/31/19 07:53 Prednisone (Prednisone) 40 mg PO .Daily Taper [facility] Sertraline HCl (Zoloft) Confirm Administered Dose 100 mg .ROUTE .STK-MED ONE Stop: 05/26/19 08:58 Last Admin: 05/26/19 09:58 Dose: Not Given - Exam General: Alert, Oriented, Cooperative, No Acute Distress Lungs: Clear to Auscultation, Normal Respiratory Effort. No: Rhonchi, Wheezing Cardiovascular: Regular Rate, Irregular Rhythm GI/Abdominal Exam: Normal Bowel Sounds, Soft, Non-Tender, No Distention Extremities: Normal Inspection, No Pedal Edema Skin: Warm, Dry Sepsis Event Note - Evaluation Sepsis Screening Result: No Definite Risk - Focused Exam Vital Signs: Vital Signs Temp Pulse Resp BP Pulse Ox Pulse Ox 05/31/19 07:20 36.4 C 104 H 20 150/71 H 93 L 05/31/19 05:00 94 L 05/31/19 03:00 35.7 C L 102 H 18 153/76 H 94 L Date Exam was Performed: 05/31/19 Time Exam was Performed: 14:12 - Problem List Review Problem List Initiated/Reviewed/Updated: Yes - My Orders Last 24 Hours: My Active Orders 05/30/19 11:03 Docusate Sodium [Colace] 100 mg PO BID PRN polyethylene glycoL 3350 [MiraLAX] 17 gm PO TID PRN 05/30/19 18:51 Magnesium Hydroxide [Milk of Magnesia] 30 ml PO DAILY PRN 05/30/19 18:52 Sennosides [Senna] 8.6 mg PO DAILY PRN 06/01/19 05:11 BASIC METABOLIC PANEL,BMP [CHEM] AM CBC WITH AUTO DIFF [HEME] AM - Plan Plan:: A: 1. Acute on chronic hypercapnic respiratory failure 2. COPD exacerbation 3. Parotitis 4. Afib 5. Deconditioning P: 1. This morning medical team had a discussion with patient and family in regards to her goals of care. Patient states she did not want BiPAP anymore. Family would like to speak with hospice for options. For now, will monitor and continue with care except BiPAP unless otherwise expressed by the patient.
[2019-05-31] MEDS: Pantoprazole 40 MG in Sodium Chloride 0.9% 10 ML IV SCH (13:13)
[2019-05-31] MEDS ORDERED: Morphine 10 MG/0.5 ML Oral Syringe SL PRN (15:22)
[2019-05-31] MEDS ORDERED: Acetaminophen 650 MG Supp RECTAL PRN (18:20)
[2019-05-31] MEDS: Morphine 10 MG/0.5 ML Oral Syringe SL PRN (21:01)
[2019-06-01] MEDS: Morphine 10 MG/0.5 ML Oral Syringe SL PRN ×2 (01:46→06:16)
[2019-06-01] MEDS: Nystatin Topical Powder 15 GM Bottle TOP SCH ×4 (06:22→21:09)
[2019-06-01] MEDS ORDERED: Morphine 10 MG/0.5 ML Oral Syringe SL PRN (07:10)
--- NOTE | 2019-06-01 11:34 | PCM.PN ---
- General Info Date of Service: 06/01/19 Subjective Update: No acute events overnight. patient had SL morphine couple of times overnight. This morning, family notices her to be weaker and not opening her eyes. - Patient Data Vitals - Most Recent: Last Vital Signs Temp 37.1 C 06/01/19 07:39 Pulse 135 H 06/01/19 07:39 Resp 16 06/01/19 07:39 BP 128/63 06/01/19 07:39 Pulse Ox 93 L 06/01/19 07:39 Weight - Most Recent: 72.575 kg I&O - Last 24 Hours: Intake & Output 05/31/19 06/01/19 06/01/19 22:59 06:59 14:59 Intake Total 50 0 Balance 50 0 Med Orders - Current: Current Medications Acetaminophen (Tylenol) 650 mg PO Q4H PRN PRN Reason: Pain (Mild 1-3)/fever Acetaminophen (Tylenol) 650 mg RECTAL Q4H PRN PRN Reason: Pain Atropine Sulfate (Atropine 1% Ophth Soln) 1 ml SL Q1H PRN PRN Reason: Other Docusate Sodium (Colace) 100 mg PO BID PRN PRN Reason: Constipation Magnesium Hydroxide (Milk Of Magnesia) 30 ml PO DAILY PRN PRN Reason: Constipation Last Admin: 05/30/19 21:01 Dose: 30 ml Morphine Sulfate (Morphine 20 Mg/Ml Soln) 10 mg SL Q5M PRN PRN Reason: pain,airhunger,agitation Nystatin (Nystop) 1 gm TOP TID [facility] Last Admin: 06/01/19 11:12 Dose: 1 gm Ondansetron HCl (Zofran) 4 mg IVPUSH Q4H PRN PRN Reason: Nausea Polyethylene Glycol (Miralax) 17 gm PO TID PRN PRN Reason: Constipation Last Admin: 05/30/19 15:22 Dose: 17 gm Senna (Senna) 8.6 mg PO DAILY PRN PRN Reason: Constipation Last Admin: 05/30/19 21:01 Dose: 8.6 mg Discontinued Medications Albuterol/Ipratropium (Duoneb 3.0-0.5 Mg/3 Ml) 3 ml NEB ONETIME ONE Stop: 05/25/19 14:42 Last Admin: 05/25/19 14:55 Dose: 3 ml Albuterol/Ipratropium (Duoneb 3.0-0.5 Mg/3 Ml) 3 ml NEB Q6HR PRN PRN Reason: Shortness of Breath Last Admin: 05/28/19 01:06 Dose: 3 ml Diltiazem HCl (Cardizem Cd) 120 mg PO DAILY [facility] Last Admin: 05/31/19 13:12 Dose: Not Given Furosemide (Lasix) 40 mg IVPUSH NOW ONE Stop: 05/28/19 08:34 Last Admin: 05/28/19 09:13 Dose: 40 mg Furosemide (Lasix) 40 mg IVPUSH NOW ONE Stop: 05/28/19 09:05 Furosemide (Lasix) 20 mg IVPUSH NOW ONE Stop: 05/28/19 19:04 Last Admin: 05/28/19 22:24 Dose: 20 mg Furosemide (Lasix) 40 mg IVPUSH NOW ONE Stop: 05/29/19 08:40 Last Admin: 05/29/19 09:10 Dose: 40 mg Furosemide (Lasix) 40 mg PO DAILY [facility] Last Admin: 05/31/19 13:12 Dose: Not Given Sodium Chloride (Normal Saline) 500 mls @ 999 mls/hr IV .BOLUS [facility] Last Infusion: 05/25/19 21:00 Dose: Infused Sodium Chloride (Normal Saline) 1,000 mls @ 75 mls/hr IV ASDIRECTED [facility] Last Admin: 05/26/19 23:30 Dose: 125 mls/hr Pantoprazole Sodium 40 mg/ (Sodium Chloride) 10 mls @ 300 mls/hr IV Q12H [facility] Last Admin: 05/31/19 13:13 Dose: Not Given Piperacillin Sod/Tazobactam (Sod 2.25 gm/ Sodium Chloride) 50 mls @ 100 mls/hr IV Q6H [facility] Last Admin: 05/27/19 05:36 Dose: 100 mls/hr Metronidazole 500 mg/ Premix 100 mls @ 100 mls/hr IV QID [facility] Vancomycin HCl 1 gm/ Sodium (Chloride) 250 mls @ 250 mls/hr IV ONETIME ONE Stop: 05/26/19 10:59 Last Admin: 05/26/19 10:13 Dose: 250 mls/hr Lactated Ringer's (Ringers, Lactated) 1,000 mls @ 100 mls/hr IV ASDIRECTED [facility] Metronidazole 500 mg/ Premix 100 mls @ 100 mls/hr IV QID [facility] Last Admin: 05/31/19 18:06 Dose: Not Given Vancomycin HCl 1 gm/ Sodium (Chloride) 250 mls @ 250 mls/hr IV Q24H [facility] Last Admin: 05/31/19 13:13 Dose: Not Given Dextrose/Water (Dextrose 5% In Water) 1,000 mls @ 75 mls/hr IV ASDIRECTED [facility] Stop: 05/28/19 21:19 Ketorolac Tromethamine (Toradol) 30 mg IVPUSH Q6H PRN PRN Reason: Pain Stop: 06/02/19 13:07 Last Admin: 05/28/19 13:13 Dose: 30 mg Levothyroxine Sodium (Levothyroxine) 25 mcg PO ACBREAKFAST [facility] Last Admin: 05/31/19 06:50 Dose: 25 mcg Levothyroxine Sodium (Levothyroxine) Confirm Administered Dose 25 mcg .ROUTE .STK-MED ONE Stop: 05/26/19 08:57 Last Admin: 05/26/19 09:58 Dose: Not Given Methylprednisolone Sodium Succinate (Solu-Medrol) 40 mg IVPUSH Q12H [facility] Last Admin: 05/29/19 22:38 Dose: 40 mg Methylprednisolone Sodium Succinate (Solu-Medrol) 40 mg IVPUSH DAILY [facility] Metoprolol Tartrate (Lopressor) 50 mg PO BID [facility] Last Admin: 05/31/19 13:12 Dose: Not Given Metoprolol Tartrate (Lopressor) Confirm Administered Dose 50 mg .ROUTE .STK-MED ONE Stop: 05/26/19 08:58 Last Admin: 05/26/19 09:58 Dose: Not Given Morphine Sulfate (Morphine 10 Mg/0.5 Ml Oral Syringe) 5 mg SL Q1H PRN PRN Reason: pain,airhunger,agitation Last Admin: 05/31/19 18:06 Dose: 5 mg Morphine Sulfate (Morphine 10 Mg/0.5 Ml Oral Syringe) 5 mg SL Q30M PRN PRN Reason: pain,airhunger,agitation Last Admin: 06/01/19 06:16 Dose: 5 mg Morphine Sulfate (Morphine 10 Mg/0.5 Ml Oral Syringe) 5 mg SL Q5M PRN PRN Reason: pain,airhunger,agitation Diltiazem Hcl [Dilt- (Xr] 120 Mg) 1 each PO DAILY [facility] Last Admin: 05/27/19 08:46 Dose: 1 each Potassium Chloride (Klor-Con M20) 40 meq PO ONETIME ONE Stop: 05/31/19 07:53 Last Admin: 05/31/19 13:12 Dose: Not Given Prednisone (Prednisone) 40 mg PO .Daily Taper [facility] Prednisone (Prednisone) 40 mg PO DAILY [facility] Last Admin: 05/31/19 13:12 Dose: Not Given Sertraline HCl (Zoloft) 100 mg PO DAILY [facility] Last Admin: 05/31/19 13:12 Dose: Not Given Sertraline HCl (Zoloft) Confirm Administered Dose 100 mg .ROUTE .STK-MED ONE Stop: 05/26/19 08:58 Last Admin: 05/26/19 09:58 Dose: Not Given Vancomycin HCl (Pharmacy To Dose - Vancomycin) 1 dose .XX ASDIRECTED [facility] - Exam Quality Assessment: Supplemental Oxygen General: Alert, Lethargic Lungs: Decreased Breath Sounds, Rhonchi. No: Wheezing Cardiovascular: Irregular Rhythm, Tachycardia GI/Abdominal Exam: Soft, Non-Tender, No Distention Extremities: Normal Inspection, No Pedal Edema Skin: Warm, Dry Sepsis Event Note - Evaluation Sepsis Screening Result: No Definite Risk - Focused Exam Vital Signs: Vital Signs Temp Pulse Resp BP Pulse Ox 06/01/19 07:39 37.1 C 135 H 16 128/63 93 L Date Exam was Performed: 06/01/19 Time Exam was Performed: 12:03 - Problem List Review Problem List Initiated/Reviewed/Updated: Yes - My Orders Last 24 Hours: My Active Orders 05/31/19 18:20 Acetaminophen [Tylenol] 650 mg RECTAL Q4H PRN Code Status [Resuscitation Status] Routine 05/31/19 18:24 Atropine 1% [Atropine 1% Ophth Soln] 1 ml SL Q1H PRN 05/31/19 18:26 Enema [RC] DAILY 06/01/19 09:35 Morphine [Morphine 20 MG/ML Soln] 10 mg SL Q5M PRN - Plan Plan:: A: 1. Acute on chronic hypercapnic respiratory failure 2. COPD exacerbation 3. Parotitis 4. Afib 5. Deconditioning P: Spoke with family about patient's poor prognosis and imminent passing away. Will stay today. Possibly discharge to [facility] tomorrow.
[2019-06-01] MEDS: Morphine Oral Concentrate 20 MG/ML 30 ML Bottle SL PRN ×5 (11:45→23:09)
--- NOTE | 2019-06-01 15:33 | ECHO ---
EXAM DATE: 05/26/19 PATIENT'S AGE: 88 The echocardiogram report can be seen in this patient's EMR (Electronic Medical Record) in the REPORTS section. The report has also been scanned into PACs. JANETT
[2019-06-01] MEDS: Atropine 1% Ophth Soln 5 ML BOTTLE SL PRN (21:07)
[2019-06-02] MEDS: Morphine Oral Concentrate 20 MG/ML 30 ML Bottle SL PRN ×7 (00:42→11:10)
[2019-06-02 07:36] VITALS: BP 126/70; PULSE 125
[2019-06-02] MEDS: Nystatin Topical Powder 15 GM Bottle TOP SCH (07:42)
--- NOTE | 2019-06-02 08:58 | PCM.PN ---
- General Info Date of Service: 06/02/19 Subjective Update: Getting more tachypneic overnight. Given morphine SL for air hunger. Family at bedside. - Patient Data Vitals - Most Recent: Last Vital Signs Temp 36.2 C 06/02/19 07:00 Pulse 125 H 06/02/19 07:00 Resp 19 06/02/19 07:00 BP 126/70 06/02/19 07:00 Pulse Ox 93 L 06/02/19 08:19 Weight - Most Recent: 72.575 kg I&O - Last 24 Hours: Intake & Output 06/01/19 06/02/19 06/02/19 22:59 06:59 14:59 Intake Total 0 Output Total 0 Balance 0 Med Orders - Current: Current Medications Acetaminophen (Tylenol) 650 mg PO Q4H PRN PRN Reason: Pain (Mild 1-3)/fever Acetaminophen (Tylenol) 650 mg RECTAL Q4H PRN PRN Reason: Pain Atropine Sulfate (Atropine 1% Ophth Soln) 1 ml SL Q1H PRN PRN Reason: Other Last Admin: 06/01/19 21:07 Dose: 1 ml Docusate Sodium (Colace) 100 mg PO BID PRN PRN Reason: Constipation Magnesium Hydroxide (Milk Of Magnesia) 30 ml PO DAILY PRN PRN Reason: Constipation Last Admin: 05/30/19 21:01 Dose: 30 ml Morphine Sulfate (Morphine 20 Mg/Ml Soln) 10 mg SL Q5M PRN PRN Reason: pain,airhunger,agitation Last Admin: 06/02/19 07:53 Dose: 10 mg Nystatin (Nystop) 1 gm TOP TID [facility] Last Admin: 06/02/19 07:42 Dose: Not Given Ondansetron HCl (Zofran) 4 mg IVPUSH Q4H PRN PRN Reason: Nausea Polyethylene Glycol (Miralax) 17 gm PO TID PRN PRN Reason: Constipation Last Admin: 05/30/19 15:22 Dose: 17 gm Senna (Senna) 8.6 mg PO DAILY PRN PRN Reason: Constipation Last Admin: 05/30/19 21:01 Dose: 8.6 mg Discontinued Medications Albuterol/Ipratropium (Duoneb 3.0-0.5 Mg/3 Ml) 3 ml NEB ONETIME ONE Stop: 05/25/19 14:42 Last Admin: 05/25/19 14:55 Dose: 3 ml Albuterol/Ipratropium (Duoneb 3.0-0.5 Mg/3 Ml) 3 ml NEB Q6HR PRN PRN Reason: Shortness of Breath Last Admin: 05/28/19 01:06 Dose: 3 ml Diltiazem HCl (Cardizem Cd) 120 mg PO DAILY [facility] Last Admin: 05/31/19 13:12 Dose: Not Given Furosemide (Lasix) 40 mg IVPUSH NOW ONE Stop: 05/28/19 08:34 Last Admin: 05/28/19 09:13 Dose: 40 mg Furosemide (Lasix) 40 mg IVPUSH NOW ONE Stop: 05/28/19 09:05 Furosemide (Lasix) 20 mg IVPUSH NOW ONE Stop: 05/28/19 19:04 Last Admin: 05/28/19 22:24 Dose: 20 mg Furosemide (Lasix) 40 mg IVPUSH NOW ONE Stop: 05/29/19 08:40 Last Admin: 05/29/19 09:10 Dose: 40 mg Furosemide (Lasix) 40 mg PO DAILY [facility] Last Admin: 05/31/19 13:12 Dose: Not Given Sodium Chloride (Normal Saline) 500 mls @ 999 mls/hr IV .BOLUS [facility] Last Infusion: 05/25/19 21:00 Dose: Infused Sodium Chloride (Normal Saline) 1,000 mls @ 75 mls/hr IV ASDIRECTED [facility] Last Admin: 05/26/19 23:30 Dose: 125 mls/hr Pantoprazole Sodium 40 mg/ (Sodium Chloride) 10 mls @ 300 mls/hr IV Q12H [facility] Last Admin: 05/31/19 13:13 Dose: Not Given Piperacillin Sod/Tazobactam (Sod 2.25 gm/ Sodium Chloride) 50 mls @ 100 mls/hr IV Q6H [facility] Last Admin: 05/27/19 05:36 Dose: 100 mls/hr Metronidazole 500 mg/ Premix 100 mls @ 100 mls/hr IV QID [facility] Vancomycin HCl 1 gm/ Sodium (Chloride) 250 mls @ 250 mls/hr IV ONETIME ONE Stop: 05/26/19 10:59 Last Admin: 05/26/19 10:13 Dose: 250 mls/hr Lactated Ringer's (Ringers, Lactated) 1,000 mls @ 100 mls/hr IV ASDIRECTED [facility] Metronidazole 500 mg/ Premix 100 mls @ 100 mls/hr IV QID [facility] Last Admin: 05/31/19 18:06 Dose: Not Given Vancomycin HCl 1 gm/ Sodium (Chloride) 250 mls @ 250 mls/hr IV Q24H [facility] Last Admin: 05/31/19 13:13 Dose: Not Given Dextrose/Water (Dextrose 5% In Water) 1,000 mls @ 75 mls/hr IV ASDIRECTED [facility] Stop: 05/28/19 21:19 Ketorolac Tromethamine (Toradol) 30 mg IVPUSH Q6H PRN PRN Reason: Pain Stop: 06/02/19 13:07 Last Admin: 05/28/19 13:13 Dose: 30 mg Levothyroxine Sodium (Levothyroxine) 25 mcg PO ACBREAKFAST [facility] Last Admin: 05/31/19 06:50 Dose: 25 mcg Levothyroxine Sodium (Levothyroxine) Confirm Administered Dose 25 mcg .ROUTE .STK-MED ONE Stop: 05/26/19 08:57 Last Admin: 05/26/19 09:58 Dose: Not Given Methylprednisolone Sodium Succinate (Solu-Medrol) 40 mg IVPUSH Q12H [facility] Last Admin: 05/29/19 22:38 Dose: 40 mg Methylprednisolone Sodium Succinate (Solu-Medrol) 40 mg IVPUSH DAILY [facility] Metoprolol Tartrate (Lopressor) 50 mg PO BID [facility] Last Admin: 05/31/19 13:12 Dose: Not Given Metoprolol Tartrate (Lopressor) Confirm Administered Dose 50 mg .ROUTE .STK-MED ONE Stop: 05/26/19 08:58 Last Admin: 05/26/19 09:58 Dose: Not Given Morphine Sulfate (Morphine 10 Mg/0.5 Ml Oral Syringe) 5 mg SL Q1H PRN PRN Reason: pain,airhunger,agitation Last Admin: 05/31/19 18:06 Dose: 5 mg Morphine Sulfate (Morphine 10 Mg/0.5 Ml Oral Syringe) 5 mg SL Q30M PRN PRN Reason: pain,airhunger,agitation Last Admin: 06/01/19 06:16 Dose: 5 mg Morphine Sulfate (Morphine 10 Mg/0.5 Ml Oral Syringe) 5 mg SL Q5M PRN PRN Reason: pain,airhunger,agitation Diltiazem Hcl [Dilt- (Xr] 120 Mg) 1 each PO DAILY [facility] Last Admin: 05/27/19 08:46 Dose: 1 each Potassium Chloride (Klor-Con M20) 40 meq PO ONETIME ONE Stop: 05/31/19 07:53 Last Admin: 05/31/19 13:12 Dose: Not Given Prednisone (Prednisone) 40 mg PO .Daily Taper [facility] Prednisone (Prednisone) 40 mg PO DAILY [facility] Last Admin: 05/31/19 13:12 Dose: Not Given Sertraline HCl (Zoloft) 100 mg PO DAILY [facility] Last Admin: 05/31/19 13:12 Dose: Not Given Sertraline HCl (Zoloft) Confirm Administered Dose 100 mg .ROUTE .STK-MED ONE Stop: 05/26/19 08:58 Last Admin: 05/26/19 09:58 Dose: Not Given Vancomycin HCl (Pharmacy To Dose - Vancomycin) 1 dose .XX ASDIRECTED [facility] - Exam General: Obtunded Lungs: Clear to Auscultation, Rhonchi Cardiovascular: Irregular Rhythm, Tachycardia Skin: Warm, Moist Sepsis Event Note - Evaluation Sepsis Screening Result: No Definite Risk - Focused Exam Vital Signs: Vital Signs Temp Pulse Resp BP Pulse Ox Pulse Ox 06/02/19 08:19 93 L 06/02/19 07:00 36.2 C 125 H 19 126/70 93 L Date Exam was Performed: 06/02/19 Time Exam was Performed: 08:55 - Problem List Review Problem List Initiated/Reviewed/Updated: Yes - My Orders Last 24 Hours: My Active Orders 06/01/19 09:35 Morphine [Morphine 20 MG/ML Soln] 10 mg SL Q5M PRN - Plan Plan:: A: 1. Acute on chronic hypercapnic respiratory failure 2. COPD exacerbation 3. Parotitis 4. Afib 5. Deconditioning P: Patient's prognosis is bad. Spoke with family and informed them that she will most likely pass away today. Continue morphine SL for air hunger.
[2019-06-02] MEDS: Atropine 1% Ophth Soln 5 ML BOTTLE SL PRN ×2 (10:05→11:07)
[2019-06-02] MEDS ORDERED: LORazepam 2 MG/ML SDV ONE (11:10)
[2019-06-02] MEDS ORDERED: LORazepam Conc Solution 2 MG/ML 30 ML Bottle SL PRN (11:11)
--- NOTE | 2019-06-02 14:34 | PCM.DCSUM1 ---
Discharge Summary - Hospital Course Free Text/Narrative:: 88 y/o female with history of Afib, COPD who was admitted for suspected diverticulitis and GI bleed. Found to have right parotitis and started on vancomycin and flagyl. Hemoglobin remained stable. No signs of GI bleed during this hospitalization. She seemed to be recovering until the past few days she went into acute hypercapnic respiratory failure. The patient had been on BiPAP for one episode and afterwards, she decided she did not want BiPAP anymore or any aggressive treatments. She wanted to transition to palliative care only. So antibiotics, IV administration and daily labs were discontinued. She on 06/02/2019 at 11:18 am with her family at bedside. - Discharge Data Discharge Date: 06/02/19 Discharge Disposition: 20 Condition: - Referral to Home Health Primary Care Physician: Shimon Chavez MD - Patient Summary/Data Consults: Consultations 05/31/19 10:26 Consult to Hospice [CONS] Routine - Discharge Plan *PRESCRIPTION DRUG MONITORING PROGRAM REVIEWED*: Yes *COPY OF PRESCRIPTION DRUG MONITORING REPORT IN PATIENT CESAR: Yes Home Medications: Home Meds Apixaban [Eliquis] 2.5 mg PO BID 08/16/16 [History] Diltiazem HCl [Dilt-XR] 120 mg PO DAILY 08/16/16 [History] Furosemide 40 mg PO DAILY 08/16/16 [History] Ipratropium/Albuterol Sulfate [Iprat-Albut 0.5-3(2.5) MG/3 ML] 3 ml NEB Q6HR PRN 08/16/16 [History] Levothyroxine 25 mcg PO ACBREAKFAST 08/16/16 [History] Metoprolol Tartrate 50 mg PO BID 08/16/16 [History] Pantoprazole [ProTONIX] 40 mg PO DAILY 08/16/16 [History] Potassium Chloride 20 meq PO DAILY 08/16/16 [History] Sertraline [Zoloft] 100 mg PO DAILY 08/16/16 [History] atorvaSTATin [Lipitor] 20 mg PO DAILY 08/16/16 [History] Referrals: Shimon Chavez MD [Primary Care Provider] - 06/22/19 10:45 am - Discharge Summary/Plan Comment DC Time >30 min.: No - Patient Data Vitals - Most Recent: Last Vital Signs Temp 36.2 C 06/02/19 07:00 Pulse 125 H 06/02/19 07:00 Resp 19 06/02/19 07:00 BP 126/70 06/02/19 07:00 Pulse Ox 93 L 06/02/19 08:19 Weight - Most Recent: 72.575 kg I&O - Last 24 hours: Intake & Output 06/01/19 06/02/19 06/02/19 22:59 06:59 14:59 Intake Total 0 Output Total 0 Balance 0 Med Orders - Current: Current Medications Discontinued Medications Acetaminophen (Tylenol) 650 mg PO Q4H PRN PRN Reason: Pain (Mild 1-3)/fever Acetaminophen (Tylenol) 650 mg RECTAL Q4H PRN PRN Reason: Pain Albuterol/Ipratropium (Duoneb 3.0-0.5 Mg/3 Ml) 3 ml NEB ONETIME ONE Stop: 05/25/19 14:42 Last Admin: 05/25/19 14:55 Dose: 3 ml Albuterol/Ipratropium (Duoneb 3.0-0.5 Mg/3 Ml) 3 ml NEB Q6HR PRN PRN Reason: Shortness of Breath Last Admin: 05/28/19 01:06 Dose: 3 ml Atropine Sulfate (Atropine 1% Oph Soln) 1 ml SL Q1H PRN PRN Reason: Other Last Admin: 06/02/19 11:07 Dose: 1 ml Diltiazem HCl (Cardizem Cd) 120 mg PO DAILY [facility] Last Admin: 05/31/19 13:12 Dose: Not Given Docusate Sodium (Colace) 100 mg PO BID PRN PRN Reason: Constipation Furosemide (Lasix) 40 mg IVPUSH NOW ONE Stop: 05/28/19 08:34 Last Admin: 05/28/19 09:13 Dose: 40 mg Furosemide (Lasix) 40 mg IVPUSH NOW ONE Stop: 05/28/19 09:05 Furosemide (Lasix) 20 mg IVPUSH NOW ONE Stop: 05/28/19 19:04 Last Admin: 05/28/19 22:24 Dose: 20 mg Furosemide (Lasix) 40 mg IVPUSH NOW ONE Stop: 05/29/19 08:40 Last Admin: 05/29/19 09:10 Dose: 40 mg Furosemide (Lasix) 40 mg PO DAILY [facility] Last Admin: 05/31/19 13:12 Dose: Not Given Sodium Chloride (Normal Saline) 500 mls @ 999 mls/hr IV .BOLUS [facility] Last Infusion: 05/25/19 21:00 Dose: Infused Sodium Chloride (Normal Saline) 1,000 mls @ 75 mls/hr IV ASDIRECTED [facility] Last Admin: 05/26/19 23:30 Dose: 125 mls/hr Pantoprazole Sodium 40 mg/ (Sodium Chloride) 10 mls @ 300 mls/hr IV Q12H [facility] Last Admin: 05/31/19 13:13 Dose: Not Given Piperacillin Sod/Tazobactam (Sod 2.25 gm/ Sodium Chloride) 50 mls @ 100 mls/hr IV Q6H [facility] Last Admin: 05/27/19 05:36 Dose: 100 mls/hr Metronidazole 500 mg/ Premix 100 mls @ 100 mls/hr IV QID [facility] Vancomycin HCl 1 gm/ Sodium (Chloride) 250 mls @ 250 mls/hr IV ONETIME ONE Stop: 05/26/19 10:59 Last Admin: 05/26/19 10:13 Dose: 250 mls/hr Lactated Ringer's (Ringers, Lactated) 1,000 mls @ 100 mls/hr IV ASDIRECTED [facility] Metronidazole 500 mg/ Premix 100 mls @ 100 mls/hr IV QID [facility] Last Admin: 05/31/19 18:06 Dose: Not Given Vancomycin HCl 1 gm/ Sodium (Chloride) 250 mls @ 250 mls/hr IV Q24H [facility] Last Admin: 05/31/19 13:13 Dose: Not Given Dextrose/Water (Dextrose 5% In Water) 1,000 mls @ 75 mls/hr IV ASDIRECTED [facility] Stop: 05/28/19 21:19 Ketorolac Tromethamine (Toradol) 30 mg IVPUSH Q6H PRN PRN Reason: Pain Stop: 06/02/19 13:07 Last Admin: 05/28/19 13:13 Dose: 30 mg Levothyroxine Sodium (Levothyroxine) 25 mcg PO ACBREAKFAST [facility] Last Admin: 05/31/19 06:50 Dose: 25 mcg Levothyroxine Sodium (Levothyroxine) Confirm Administered Dose 25 mcg .ROUTE .STK-MED ONE Stop: 05/26/19 08:57 Last Admin: 05/26/19 09:58 Dose: Not Given Lorazepam (Ativan) 2 mg SL Q4H PRN PRN Reason: Anxiety Magnesium Hydroxide (Milk Of Magnesia) 30 ml PO DAILY PRN PRN Reason: Constipation Last Admin: 05/30/19 21:01 Dose: 30 ml Methylprednisolone Sodium Succinate (Solu-Medrol) 40 mg IVPUSH Q12H [facility] Last Admin: 05/29/19 22:38 Dose: 40 mg Methylprednisolone Sodium Succinate (Solu-Medrol) 40 mg IVPUSH DAILY [facility] Metoprolol Tartrate (Lopressor) 50 mg PO BID [facility] Last Admin: 05/31/19 13:12 Dose: Not Given Metoprolol Tartrate (Lopressor) Confirm Administered Dose 50 mg .ROUTE .[facility]-MED ONE Stop: 05/26/19 08:58 Last Admin: 05/26/19 09:58 Dose: Not Given Morphine Sulfate (Morphine 10 Mg/0.5 Ml Oral Syringe) 5 mg SL Q1H PRN PRN Reason: pain,airhunger,agitation Last Admin: 05/31/19 18:06 Dose: 5 mg Morphine Sulfate (Morphine 10 Mg/0.5 Ml Oral Syringe) 5 mg SL Q30M PRN PRN Reason: pain,airhunger,agitation Last Admin: 06/01/19 06:16 Dose: 5 mg Morphine Sulfate (Morphine 10 Mg/0.5 Ml Oral Syringe) 5 mg SL Q5M PRN PRN Reason: pain,airhunger,agitation Morphine Sulfate (Morphine 20 Mg/Ml Soln) 10 mg SL Q5M PRN PRN Reason: pain,airhunger,agitation Last Admin: 06/02/19 11:10 Dose: 10 mg Nystatin (Nystop) 1 gm TOP TID [facility] Last Admin: 06/02/19 07:42 Dose: Not Given Ondansetron HCl (Zofran) 4 mg IVPUSH Q4H PRN PRN Reason: Nausea Diltiazem Hcl [Dilt- (Xr] 120 Mg) 1 each PO DAILY [facility] Last Admin: 05/27/19 08:46 Dose: 1 each Polyethylene Glycol (Miralax) 17 gm PO TID PRN PRN Reason: Constipation Last Admin: 05/30/19 15:22 Dose: 17 gm Potassium Chloride (Klor-Con M20) 40 meq PO ONETIME ONE Stop: 05/31/19 07:53 Last Admin: 05/31/19 13:12 Dose: Not Given Prednisone (Prednisone) 40 mg PO .Daily Taper [facility] Prednisone (Prednisone) 40 mg PO DAILY [facility] Last Admin: 05/31/19 13:12 Dose: Not Given Senna (Senna) 8.6 mg PO DAILY PRN PRN Reason: Constipation Last Admin: 05/30/19 21:01 Dose: 8.6 mg Sertraline HCl (Zoloft) 100 mg PO DAILY [facility] Last Admin: 05/31/19 13:12 Dose: Not Given Sertraline HCl (Zoloft) Confirm Administered Dose 100 mg .ROUTE .STK-MED ONE Stop: 05/26/19 08:58 Last Admin: 05/26/19 09:58 Dose: Not Given Vancomycin HCl (Pharmacy To Dose - Vancomycin) 1 dose .XX ASDIRECTED [facility]
== END 2019-06-02 11:18 | disposition expired | DRG 377 ==
LOC: MW.ED 13:15 → MW.MS 20:52 → OBSVTOIN 05-26 10:10 → MW.MS 05-26 12:18
PROVIDERS: ADMIT Internal Medicine; ATTEND Internal Medicine
PROC: 5A09357 Assistance with Respiratory Ventilation, Less than 24 Consecutive Hours, Continuous Positive Airway Pressure (ICD-10-PCS; principal; 2019-05-29)
DX: K92.2 Gastrointestinal hemorrhage, unspecified (principal); J96.22 Acute and chronic respiratory failure with hypercapnia; N17.9 Acute kidney failure, unspecified; I10 Essential (primary) hypertension; E87.0 Hyperosmolality and hypernatremia; J44.9 Chronic obstructive pulmonary disease, unspecified; E86.0 Dehydration; R10.84 Generalized abdominal pain; R51 Headache; I13.0 Hypertensive heart and chronic kidney disease with heart failure and stage 1 through stage 4 chronic kidney disease, or unspecified chronic kidney disease; N28.9 Disorder of kidney and ureter, unspecified; J44.1 Chronic obstructive pulmonary disease with (acute) exacerbation; K11.20 Sialoadenitis, unspecified; R41.9 Unspecified symptoms and signs involving cognitive functions and awareness; I48.91 Unspecified atrial fibrillation; R73.03 Prediabetes; Z51.5 Encounter for palliative care; H91.90 Unspecified hearing loss, unspecified ear; I25.10 Atherosclerotic heart disease of native coronary artery without angina pectoris; M19.90 Unspecified osteoarthritis, unspecified site; M81.0 Age-related osteoporosis without current pathological fracture; F41.9 Anxiety disorder, unspecified; E03.9 Hypothyroidism, unspecified; Z96.649 Presence of unspecified artificial hip joint; N18.9 Chronic kidney disease, unspecified; I50.9 Heart failure, unspecified; Z99.81 Dependence on supplemental oxygen; Z87.891 Personal history of nicotine dependence; Z90.89 Acquired absence of other organs; Z88.2 Allergy status to sulfonamides; Z79.01 Long term (current) use of anticoagulants; Z79.899 Other long term (current) drug therapy; I25.2 Old myocardial infarction; Z90.710 Acquired absence of both cervix and uterus; Z90.49 Acquired absence of other specified parts of digestive tract; Z79.890 Hormone replacement therapy
CPT/HCPCS: 36415 ×2; 36600; 71045; 74176; 80053 ×2; 81003; 82009; 82803; 83605 ×2; 83690; 83735; 84484; 85025 ×3; 87040 ×2; 93005; 94640; 96360; 96361; 99285; A9270 ×3; C9113; J2543 ×2; J7030 ×2; J7040; J7050 ×3; 80048; 80202; 93306; 94660; 96374; 96376; 97110-GP; 97161-GP; 99284; G0378; J1885; J1940; J2920; J3370; J3490; J7620-GY